=== PATIENT | male | born 1990 | race American Indian/Alaskan Native ===

== ENCOUNTER 2019-12-29 00:48 | Emergency (ER) | payer OTHER, SELFPAY ==
--- NOTE | 2019-12-29 | ECG_ITS ---
Test Reason : CHEST PAIN Blood Pressure : / mmHG Vent. Rate : 055 BPM Atrial Rate : 055 BPM P-R Int : 156 ms QRS Dur : 086 ms QT Int : 406 ms P-R-T Axes : 023 -07 -04 degrees QTc Int : 388 ms Sinus bradycardia Minimal voltage criteria for LVH, may be normal variant ST elevation, consider early repolarization, pericarditis, or injury Abnormal ECG When compared with ECG of 28-OCT-2017 10:33, No significant change was found Referred By: Lolita Pena Electronically Signed By:SIVA COLES MD
[2019-12-29 01:02] VITALS: BP 136/79; PULSE 60; RESP 16; TEMP 36.4; O2SAT 99
[2019-12-29 01:13] VITALS: BP 136/79; PULSE 60; RESP 16; TEMP 36.4; O2SAT 99; BMI 37.3
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
[2019-12-29 01:51] VITALS: BP 111/77; PULSE 72; RESP 16; O2SAT 98
[2019-12-29 02:02] LABS: Basophils Absolute Auto 0.1 X10*3/uL (0.0-0.2); Basophils Percent Auto 0.5 % (0-2); Eosinophils Absolute Auto 0.1 X10*3/uL (0.0-0.4); Eosinophils Percent Auto 1.2 % (0-4); Hematocrit 44.3 % (42-52); Hemoglobin 14.4 g/dl (14.0-18.0); Imm Gran Abs Auto 0.02 X10*3/uL (0.00-0.03); Imm Gran Pct Auto 0.2 % (0.0-0.4); Lymphocytes Absolute Auto 2.7 X10*3/uL (1.2-4.9); Lymphocytes Percent Auto 26.9 % (20-40); MANUAL DIFF FLAG NO; Mean Corpuscular HGB Conc 32.5 g/dl (31.0-36.0); Mean Corpuscular Hemoglobin 27.3 pg (27.0-33.0); Mean Corpuscular Volume 83.9 fL (80-98); Mean Platelet Volume 9.1 fL (9.4-12.4); Monocytes Absolute Auto 0.9 X10*3/uL (0.1-1.2); Monocytes Percent Auto 8.8 % (2-11); Neutrophils Absolute Auto 6.3 X10*3/uL (2.0-8.3); Neutrophils Percent Auto 62.4 % (45-73); Platelet Count 309 X10*3/uL (160-400); Red Blood Count 5.28 X10*6/uL (4.60-5.80); Red Cell Distribution Width 13.2 % (11.0-16.0); White Blood Count 10.1 X10*3/uL (4.8-10.8)
[2019-12-29 02:24] LABS: Alanine Aminotransferase 17 U/L (0-40); Albumin Level 4.5 g/dL (3.5-5.0); Alkaline Phosphatase 53 U/L (39-117); Anion Gap 12 (12-20); Aspartate Amino Transferase 16 U/L (5-37); Bilirubin Total 0.4 mg/dL (0.0-1.0); Blood Urea Nitrogen 20 mg/dL (9-16); Calcium 9.3 mg/dL (8.4-10.2); Carbon Dioxide 27 mmol/L (22-29); Chloride 104 mmol/L (96-108); Creatinine Clr Calc Pharmacy 138.9; Estimated Glomerular Filt Rate > 60; Glucose Random 98 mg/dL (60-115); Potassium 4.4 mmol/l (3.3-5.1); Sodium 139 mmol/L (135-145); Total Protein 7.3 g/dL (6.5-8.0)
[2019-12-29] MEDS: iohexoL 350 MG/ML 100 ML INFUS..BTL 85 ML IV (02:25)
[2019-12-29] MEDS: Ketorolac Tromethamine 15 MG/ML VIAL IV (03:00)
[2019-12-29] MEDS: Acetaminophen 325 MG TABLET 975 MG PO (03:00)
[2019-12-29] MEDS: 0.9 % Sodium Chloride 1,000 ML 999 ML IVCONT (03:00)
[2019-12-29 03:28] LABS: Troponin-I High Sensitivity < 3.5 ng/L (<3.5-35.0)
== END 2019-12-29 04:08 | disposition home or self-care (01) ==
PROVIDERS: Emergency Provider Student in an Organized Health Care Education/Training Program; PCP Internal Medicine
DX: S29.8XXA Other specified injuries of thorax, initial encounter (principal); V43.52XA Car driver injured in collision with other type car in traffic accident, initial encounter; Y93.89 Activity, other specified; Y92.414 Local residential or business street as the place of occurrence of the external cause; Y99.9 Unspecified external cause status
CPT/HCPCS: 36415; 71260; 74177; 80053; 84484; 85025; 90471; 90715; 93005; 96361; 96374; 99284; J1885

== ENCOUNTER 2020-03-30 21:20 | Emergency (ER) | payer OTHER, SELFPAY ==
[2020-03-30 21:44] VITALS: BP 112/71; PULSE 84; RESP 18; TEMP 37; O2SAT 97; BMI 38.0
--- NOTE | 2020-03-30 23:24 | ED.MALEGU ---
HPI - Male Genitourinary General Chief complaint: Urogenital-Male Stated complaint: Personal Time Seen by Provider: 03/30/20 22:59 Source: patient Mode of arrival: ambulatory Limitations: no limitations History of Present Illness HPI Narrative: 29-year-old male who presents to the emergency department for evaluation of painful erections. The patient states that over the past week he has been getting spontaneous painful erections. He states that he gets them every other day. He gets to 3 erections per day. Erections the last 3 hours and then resolved. He states that the pain is constant when he has the erection, is a throbbing sensation and is 6/10 and resolves when his erection resolves. The patient states that he started a new exercise routine and is taking a packet of supplements that are given to him by a friend. He does not know the medications that were in the supplements. He denied being ill in any other way. He denied fever, chills, chest pain, shortness of breath, abdominal pain, nausea, vomiting, diarrhea, frequency, urgency, dysuria or penile discharge. Related Data Allergies Allergy/AdvReac Type Severity Reaction Status Date / Time morphine [Morphine] Allergy Unknown PALPITATION, Verified 03/06/20 13:20 tachycardia, tachycardia Review of Systems Review of Systems: Yes all other systems are reviewed and are negative Neurologic: Reports Abnormal speech present [facility] Past Medical History Medical History Asthma History of gastrectomy Surgical History History of sleeve gastrectomy History of tonsillectomy Hx laparoscopic cholecystectomy Family History Family History Father Hypertension High cholesterol Mother Rheumatoid arthritis Maternal Grandmother Breast cancer Paternal Grandmother Breast cancer Pancreatic cancer Paternal Grandfather Colon cancer Social History Social History Alcohol intake: current Alcohol intake frequency: holidays/special occasions only Smoked in Last 30 Days: No Use of substances other than those prescribed or required for medical reasons: No Advance Directives: No Physical Exam Vital Signs: Vital Signs: Last Vital Signs Temp 98.6 F 03/30/20 21:44 Pulse 84 03/30/20 21:44 Resp 18 03/30/20 21:44 BP 112/71 03/30/20 21:44 Pulse Ox 97 03/30/20 21:44 Body Mass Index 38.0 Const: General: cooperative and healthy appearing Nutritional Appearance: obese Orientation/consciousness: oriented to person and oriented to place Limitations: no limitations HENMT: Head: Yes normal to inspection, Yes normocephalic and Yes atraumatic Ears: external ears normal General nose exam: Normal external nose present Face and sinus: Yes normal facial exam Mouth: Normal oral and palatal mucosa present Throat: Yes posterior oropharynx normal Eyes: Periorbital: periorbital findings normal Eyelids: Yes eyelids normal Conjunctivae: conjunctivae normal Sclerae: sclerae normal Corneas: corneas normal Pupils: Equal, round and reactive pupils present Direct Ophthalmoscopy: normal light reflex Neck: Neck: Yes full ROM, Yes no lymphadenopathy, Yes no meningeal signs, Yes trachea midline and Yes supple Chest: Chest palpation & inspection: normal inspection of the chest and normal palpation of entire chest wall Resp: Effort & Inspection: normal respiratory effort and able to speak in complete sentences Auscultation: clear to auscultation bilaterally Cardio: Rate: regular rate Rhythm: regular rhythm Heart sounds: S1 normal heart sound present, S2 normal heart sound present and no murmurs GI: Inspection: Yes normal to inspection Palpation (GI): Soft to palpation, nontender, no guarding, not rigid and No hepatosplenomegaly present : General: Yes no CVA tenderness Male General Exam: Yes normal external exam and No Genital lesions present Penis: normal penis, uncircumcised, no ecchymosis, not edematous, not erythematous, no masses, no vesicles, no swelling, no ulcerations and No Genital lesions present Back/Spine/Pelvis: Back: no CVA tenderness Cervical Spine: normal cervical lordosis Thoracic/Lumbar Spine: thoracic and lumbar spine normal to inspection Skin: Lesions: no lesions Rashes: no rashes Wounds: no wounds Neuro: General: oriented to person, oriented to place and no meningeal signs Cranial nerves: Yes Equal, round and reactive pupils present Cognition (Neuro): normal cognition Speech: Abnormal speech present Motor exam (neuro): 5/5 motor strength present throughout Extrem: General: Yes normal to inspection and Yes full ROM Psych: Appearance: well kempt Mental Status: mental status grossly normal Speech and movement: Normal speech and movement present Affect: normal affect Attitude: cooperative Thought process: Normal thought process present Thought content: Normal thought content present Course Course Course Narrative: The patient's presentation is consistent with priapism most likely caused by his workout supplements that he has been taking over the past 2 weeks. I did discuss this with him. He was advised to stop taking supplements. I told him that if his painful erections persist then he should follow-up with urology. He told me should return if he has a painful erection that lasts more than 4 hours and does not resolve. Discharge Plan Discharge Clinical Impression: Priapism Patient Disposition: Home, Self-Care Instructions: Priapism (ED) Additional Instructions: The painful erections are most likely caused by the workout supplements that you are taking. Stop these medications. He have an erection that lasts more than 4 hours and does not resolve the return to the emergency department for evaluation. Follow-up with our urologist on-call within 1 weeks if your symptoms persist after stopping the supplements. Please return to the emergency department if your symptoms get worse or if you develop any symptoms that are concerning to you. Referrals: José Bahena MD [Physician] - 2 days
== END 2020-03-31 00:18 | disposition home or self-care (01) ==
PROVIDERS: Emergency Provider Emergency Medicine Emergency Medical Services; PCP Internal Medicine
DX: N48.30 Priapism, unspecified (principal)
CPT/HCPCS: 99283; 99284

== ENCOUNTER 2020-04-06 09:30 | Outpatient (REF) | payer OTHER, SELFPAY ==
--- NOTE | 2020-04-06 09:35 | XR_ITS ---
EXAMINATION: XR LUMBOSACRAL SPINE CLINICAL INFORMATION: Low back pain. COMPARISON: None TECHNIQUE: Three views of the lumbosacral spine. FINDINGS: There is mild straightening of lumbar lordosis. There is loss of L5/S1 disc space. Rest the disc heights are normal. The vertebral heights and alignment is preserved.. No visible acute fracture, dislocation or subluxation seen. No lytic or sclerotic process seen. The paravertebral soft tissues are normal. XR/XR lumbar spine 2-3V IMPRESSION: Mild straightening of lumbar lordosis likely spasm. Mild loss of L5-S1 disc height.
== END 2020-04-06 09:31 | disposition home or self-care (01) ==
LOC: HO.XRAY 09:30
PROVIDERS: PCP Internal Medicine; Visit Provider Internal Medicine
DX: M54.5 Low back pain (principal)
CPT/HCPCS: 72100

== ENCOUNTER 2020-07-03 17:21 | Emergency (ER) | payer OTHER, SELFPAY ==
--- NOTE | ~2020-07-03 | XR_ITS ---
EXAMINATION: XR CHEST CLINICAL INFORMATION: Chest pain COMPARISON: Chest CT 12/29/2019 TECHNIQUE: Frontal view of the chest was obtained. FINDINGS: Cardiac silhouette is normal in size. The lungs are well aerated. There is no lobar consolidation. No pleural effusion or pneumothorax. XR/XR chest 1V IMPRESSION: No acute pulmonary pathology.
--- NOTE | 2020-07-03 17:52 | ECG_ITS ---
Test Reason : CHEST PAIN Blood Pressure : / mmHG Vent. Rate : 061 BPM Atrial Rate : 061 BPM P-R Int : 146 ms QRS Dur : 082 ms QT Int : 396 ms P-R-T Axes : 020 -05 009 degrees QTc Int : 398 ms Normal sinus rhythm Normal ECG When compared with ECG of 29-DEC-2019 03:03, No significant change was found Referred By: Wilber Villanueva Electronically Signed By:ROM BOBO
[2020-07-03 17:53] VITALS: BP 116/79; PULSE 66; RESP 18; TEMP 36.5; O2SAT 99; BMI 37.2
[2020-07-03 18:22] LABS: MANUAL DIFF FLAG NO
[2020-07-03 18:25] LABS: Basophils Percent Auto 0.4 % (0-2); Eosinophils Absolute Auto 0.2 X10*3/uL (0.0-0.4); Eosinophils Percent Auto 1.7 % (0-4); Hematocrit 44.8 % (42-52); Hemoglobin 14.7 g/dl (14.0-18.0); Imm Gran Abs Auto 0.04 X10*3/uL (0.00-0.03); Imm Gran Pct Auto 0.4 % (0.0-0.4); Lymphocytes Absolute Auto 2.3 X10*3/uL (1.2-4.9); Lymphocytes Percent Auto 24.8 % (20-40); Mean Corpuscular HGB Conc 32.8 g/dl (31.0-36.0); Mean Corpuscular Hemoglobin 27.2 pg (27.0-33.0); Mean Platelet Volume 9.1 fL (9.4-12.4); Monocytes Absolute Auto 0.8 X10*3/uL (0.1-1.2); Monocytes Percent Auto 8.8 % (2-11); Neutrophils Absolute Auto 5.8 X10*3/uL (2.0-8.3); Neutrophils Percent Auto 63.9 % (45-73); Platelet Count 280 X10*3/uL (160-400); Red Cell Distribution Width 13.2 % (11.0-16.0); White Blood Count 9.1 X10*3/uL (4.8-10.8)
[2020-07-03 18:47] LABS: Anion Gap 12 (12-20); Blood Urea Nitrogen 18 mg/dL (9-16); Calcium 8.8 mg/dL (8.4-10.2); Carbon Dioxide 30 mmol/L (22-29); Chloride 103 mmol/L (96-108); Creatinine Clr Calc Pharmacy 170.2; Estimated Glomerular Filt Rate > 60; Glucose Random 89 mg/dL (60-115); Potassium 4.2 mmol/L (3.3-5.1); Sodium 141 mmol/L (135-145)
[2020-07-03 18:54] LABS: Troponin-I High Sensitivity < 3.5 ng/L (<3.5-35.0)
--- NOTE | 2020-07-03 22:20 | PC.NURSE ---
CALLED BY PCT FOR ADDITIONAL LAB DRAW NO RESPONSE
== END 2020-07-03 22:24 | disposition left against medical advice (07) ==
PROVIDERS: Emergency Provider Emergency Medicine; PCP Internal Medicine
DX: R07.9 Chest pain, unspecified (principal); F41.9 Anxiety disorder, unspecified; J45.909 Unspecified asthma, uncomplicated; K76.0 Fatty (change of) liver, not elsewhere classified
CPT/HCPCS: 36415; 71045; 80048; 84484; 85025; 93005; 99282; 99283

== ENCOUNTER 2020-11-03 20:20 | Emergency (ER) | payer OTHER, SELFPAY ==
--- NOTE | ~2020-11-03 | XR_ITS ---
EXAMINATION: XR FOOT, RIGHT CLINICAL INFORMATION: Heel splinter. COMPARISON: None TECHNIQUE: AP, lateral, and oblique views of the right foot. FINDINGS: No radiopaque foreign body. No acute fracture or dislocation. No joint space narrowing or marginal osteophytes. No osseous erosion. Plantar and dorsal calcaneal enthesophytes. XR/XR foot RT min 3V IMPRESSION: 1. No radiopaque foreign body. 2. Small plantar and dorsal calcaneal spurs.
[2020-11-03 21:09] VITALS: BP 118/61; PULSE 70; RESP 16; TEMP 36.9; O2SAT 96; BMI 39.1
--- NOTE | 2020-11-03 23:01 | ED_ITS ---
HPI - Skin/Abscess/Foreign Bdy General Chief complaint: Skin/Abscess/Foreign Body Stated complaint: Splinter in foot Time Seen by Provider: 11/03/20 22:34 Source: patient Mode of arrival: ambulatory Limitations: no limitations History of Present Illness HPI narrative: Wooden splinter in the right heel from that at home. States tried to remove it but kept breaking off. Unsure of last tetanus vaccination. Onset (ago): hour(s) Tetanus up to date: no Location: R foot Severity: mild Quality: aching (Every time he steps on it feels like) Relieving factors: none Exacerbating factors: palpation and other (Weight-bearing) Context: other (Wooden splinter) Associated symptoms: denies other symptoms Treatments prior to arrival: none Related Data Home Medications Medication Instructions Recorded Confirmed ibuprofen 600 mg tablet 600 mg PO TID PRN 04/05/20 11/01/20 Previous Rx's Medication Instructions Recorded cyclobenzaprine 7.5 mg tablet 7.5 mg PO TID PRN #20 tab 04/05/20 albuterol sulfate 90 mcg/actuation 2 puff INHALATION Q4-6H PRN #8.5 g 11/01/20 aerosol inhaler (ProAir HFA) budesonide-formoterol HFA 80 2 puff INHALATION BID #10.2 g 11/01/20 mcg-4.5 mcg/actuation aerosol inhaler (Symbicort) amoxicillin 875 mg-potassium 1 tab PO Q12H 7 Days #14 tab 11/03/20 clavulanate 125 mg tablet (Augmentin) Allergies Allergy/AdvReac Type Severity Reaction Status Date / Time morphine [Morphine] Allergy Unknown PALPITATION, Verified 11/03/20 21:11 tachycardia, tachycardia Review of Systems Review of Systems: Constitutional: No Weight loss, No Fever, No Chills, No Night Sweats, No Fatigue, No Malaise ENT/Mouth: No Hearing loss, No Ear Pain, No Nasal Congestion, No Sinus Pain, No Hoarseness, No sore throat, No Rhinorrhea, No Swallowing Difficulty Eyes: No Eye Pain, No Swelling, No Redness, No Foreign Body, No Discharge, No Vision Changes Cardiovascular: No Chest Pain, No SOB, No Dyspnea on Exertion, No Orthopnea, No Edema, No Palpitations Respiratory: No Cough, No Sputum, No Wheezing, No Dyspnea Gastrointestinal: No Nausea, No Vomiting, No Diarrhea, No Constipation, No abdominal Pain, No Hematochezia, No Melena Genitourinary: no irregular bleeding, No Dysuria, No Urinary Frequency, No Hematuria, No Urinary Incontinence, No Urgency, No Flank Pain, No Urinary Flow Changes, No Hesitancy Musculoskeletal: No joint pain, No Myalgias, No Joint Swelling as noted per HPI Skin: No Skin Lesions, No rash Neuro: No Weakness, No Numbness, No Paresthesias, No Loss of Consciousness, No Dizziness, No Headache Psych: No Social Issues Heme/Lymph: No Bruising, No Bleeding,No Lymphadenopathy Endocrine: No Polyuria, No Polydipsia, No Temperature Intolerance Yes all other systems are reviewed and are negative [facility] Past Medical History Medical History Anxiety and depression Asthma Decreased hearing of left ear Fatty liver GERD (gastroesophageal reflux disease) History of gastrectomy Hypertriglyceridemia Obesity Obstructive sleep apnea Surgical History History of sleeve gastrectomy History of tonsillectomy Hx laparoscopic cholecystectomy Family History Family History Father Hypertension High cholesterol Mother Rheumatoid arthritis Maternal Grandmother Breast cancer Paternal Grandmother Breast cancer Pancreatic cancer Paternal Grandfather Colon cancer Son Mental health disorder Social History Social History Housing: House (rented) Alcohol intake: current Alcohol intake frequency: holidays/special occasions only Patient Tobacco Use Status: Never used Tobacco Advance Directives: No Advance Directives Information Provided: Yes service: No Current occupational status: employed Physical Exam Vital Signs: Vital Signs: Last Vital Signs Temp 98.4 F 11/03/20 21:09 Pulse 70 11/03/20 21:09 Resp 16 11/03/20 21:09 BP 118/61 11/03/20 21:09 Pulse Ox 96 11/03/20 21:09 Body Mass Index 39.1 Const: General: cooperative and healthy appearing; No acute distress or intoxicated appearing Nutritional Appearance: average body habitus Orientation/consciousness: patient oriented x3 HENMT: Head: Yes normal to inspection Ears: hearing grossly normal bilaterally Chest: Chest palpation & inspection: normal inspection of the chest Resp: Effort & Inspection: normal respiratory effort : General: Yes no CVA tenderness Back/Spine/Pelvis: Back: no CVA tenderness Skin: General skin exam: no rashes or lesions noted Neuro: General: patient oriented x3 Extrem: General: Yes normal to inspection Ankle/foot/toe images: 1. There is a obvious < 0.5 cm elvis of PW with central aspect that has a dark foreign body consistent with wooden splinter. There is no swelling, erythema, discharge. Course Reevaluation(s) Reevaluation #1: Foreign body removed with ease with forceps, given tetanus vaccination, empiric antibiotics. Triage ordered x-ray protocol this was negative for foreign body however I was able to see on exam and removed with ease. Procedures Procedure Narrative Procedure Narrative: Right heel was cleaned with alcohol prep and with a splinter was visualized and fine forceps used to have 2 of the wooden splinter removed fully intact. Moist procedure palpated area does not feel like he has any foreign body sensation in more. No visible foreign body. Able to ambulate without pain. Discharge Plan Discharge Clinical Impression: Foreign body (FB) in soft tissue, Vaccine for tetanus toxoid Patient Disposition: Home, Self-Care Instructions: Soft Tissue Foreign Body (ED) Additional Instructions: You were given a tetanus vaccine Keep site clean and dry Monitor for signs of infection Prophylactic antibiotics Return if any concerns or worsening symptoms Thank you Prescriptions: New amoxicillin-pot clavulanate [Augmentin] 875-125 mg tablet 1 tab PO Q12H 7 Days Qty: 14 RF: 0 No Action albuterol sulfate [ProAir HFA] 90 mcg/actuation HFA aerosol inhaler 2 puff inhalation Q4-6H PRN (Reason: shortness of breath or wheezing) Qty: 8.5 RF: 0 budesonide-formoterol [Symbicort] 80-4.5 mcg/actuation HFA aerosol inhaler 2 puff inhalation BID Qty: 10.2 RF: 0 ibuprofen 600 mg tablet 600 mg PO TID PRNRF: 0 cyclobenzaprine 7.5 mg tablet 7.5 mg PO TID PRN (Reason: muscle spasm) Qty: 20 RF: 0
[2020-11-03] MEDS: Diphth,Pertus(ACell),Tet Adult 0.5 ML SYRINGE IM (23:03)
[2020-11-03] MEDS: Amoxicillin/Potassium Clav 875 MG TABLET PO (23:04)
== END 2020-11-03 23:27 | disposition home or self-care (01) ==
PROVIDERS: Emergency Provider Emergency Medicine; PCP Internal Medicine
DX: S91.341A Puncture wound with foreign body, right foot, initial encounter (principal); W45.8XXA Other foreign body or object entering through skin, initial encounter; Y93.9 Activity, unspecified; Y92.019 Unspecified place in single-family (private) house as the place of occurrence of the external cause; Y99.9 Unspecified external cause status
CPT/HCPCS: 73630; 90471; 90715; 99283; 99284

== ENCOUNTER 2021-05-25 07:34 | Outpatient (REF) | payer OTHER, SELFPAY ==
--- NOTE | ~2021-05-25 | XR_ITS ---
EXAMINATION: XR FINGER, LEFT CLINICAL INFORMATION: Pain in left finger COMPARISON: None TECHNIQUE: Three views of the left index finger. FINDINGS: The bones and soft tissues are normal. No fracture. Alignment is anatomic. Joint spaces are maintained. XR/XR finger LT min 2V IMPRESSION: Normal finger radiographs.
[2021-05-25 07:50] LABS: MANUAL DIFF FLAG NO
[2021-05-25 08:14] LABS: Basophils Percent Auto 0.5 % (0-2); Eosinophils Absolute Auto 0.1 X10*3/uL (0.0-0.4); Hemoglobin 14.4 g/dl (14.0-18.0); Imm Gran Abs Auto 0.02 X10*3/uL (0.00-0.03); Imm Gran Pct Auto 0.3 % (0.0-0.4); Lymphocytes Absolute Auto 1.9 X10*3/uL (1.2-4.9); Lymphocytes Percent Auto 28.8 % (20-40); Mean Corpuscular HGB Conc 31.3 g/dl (31.0-36.0); Mean Corpuscular Hemoglobin 26.3 pg (27.0-33.0); Mean Corpuscular Volume 84.1 fL (80.0-98.0); Mean Platelet Volume 9.1 fL (9.4-12.4); Monocytes Absolute Auto 0.6 X10*3/uL (0.1-1.2); Monocytes Percent Auto 9.2 % (2-11); Neutrophils Absolute Auto 3.8 x10*3/uL (2.0-8.3); Neutrophils Percent Auto 59.2 % (45-73); Platelet Count 309 X10*3/uL (160-400); Red Blood Count 5.47 X10*6/uL (4.60-5.80); Red Cell Distribution Width 13.2 % (11.0-16.0); White Blood Count 6.4 X10*3/uL (4.8-10.8)
[2021-05-25 08:37] LABS: Alanine Aminotransferase 35 U/L (0-40); Alkaline Phosphatase 51 U/L (39-117); Anion Gap 11 (12-20); Aspartate Amino Transferase 24 U/L (5-37); Bilirubin Total 0.6 mg/dL (0.0-1.0); Blood Urea Nitrogen 13 mg/dL (9-16); Calcium 9.6 mg/dL (8.4-10.2); Carbon Dioxide 29 mmol/L (22-29); Chloride 105 mmol/L (96-108); Cholesterol 133 mg/dL; Estimated Glomerular Filt Rate > 60; Glucose Random 89 mg/dL (60-115); HDL Cholesterol 29 mg/dL; LDL Cholesterol Calculated 82 mg/dl; Potassium 4.4 mmol/L (3.3-5.1); Sodium 141 mmol/L (135-145); Total Protein 6.9 g/dL (6.5-8.0); Triglycerides 112 mg/dL
[2021-05-25 08:59] LABS: Insulin 21 uU/mL (2-29); Thyroid Stimulating Hormone 1.65 uIU/mL (0.32-4.0)
[2021-05-27 09:00] LABS: Folate 5.1 ng/mL (> or = 4.0); Vitamin B12 356 pg/mL (200-900)
[2021-05-27 14:32] LABS: C Peptide 2.24 ng/mL (0.80-3.85)
[2021-05-29 02:27] LABS: Beta-Hydroxybutyrate 0.05 mmol/L
[2021-06-01 04:02] LABS: Proinsulin 10.9 pmol/L (< OR = 18.8)
[2021-06-04 11:51] LABS: Chlorpropamide None Detected; Glimepiride None Detected; Glipizide None Detected; Glyburide None Detected; Nateglinide None Detected; Pioglitazone None Detected; Repaglinide None Detected; Rosiglitazone None Detected; Tolazamide None Detected; Tolbutamide None Detected
== END 2021-05-25 07:35 | disposition home or self-care (01) ==
LOC: HO.XRAY 07:34
PROVIDERS: PCP Internal Medicine; Visit Provider Internal Medicine
DX: E16.2 Hypoglycemia, unspecified (principal); E78.00 Pure hypercholesterolemia, unspecified; M79.645 Pain in left finger(s)
CPT/HCPCS: 36415; 73140; 80053; 80061; 80337; 82010; 82607; 82746; 83525; 84206; 84439; 84443; 84681; 85025

== ENCOUNTER 2022-12-26 09:57 | Outpatient (AMB) | payer OTHER, SELFPAY ==
--- NOTE | 2022-12-26 10:04 | MHC.PC.OV ---
Vital Signs 12/26/22 10:05 Height 5 ft 7 in Weight 303 lb 8 oz BMI 47.5 BP 122/80 Blood Pressure Location Lt brachial Position Sitting Pulse 63 Pulse Source Pulse Oximeter Pulse Oximetry (%) 97 Oxygen Delivery Method Room Air Intake Visit Reasons: PHY Intake Note: Patient is here today for a physical. Request for lab order to check everything. Complain of sharp pain in the stomach. Rash on upper tight and lower abdominal folds. Complaint of chest pain with left arm weakness and welling. Him Specialist Required: No Director Of Outreach: Not Required per policy Accompanied by: Self / Same As Patient Allergies morphine [Morphine] Allergy (Unknown, Verified 12/26/22 10:21) PALPITATION, tachycardia, tachycardia Medication List - Last Reconciled 12/26/22 by DILLAN Martins albuterol sulfate 90 mcg/actuation (ProAir HFA) 2 puffs inhalation Q4-6H PRN budesonide-formoterol 80-4.5 mcg/actuation (Symbicort) 2 puffs inhalation BID cyclobenzaprine 7.5 mg PO TID PRN ibuprofen 600 mg PO TID PRN omeprazole 20 mg PO DAILY Tobacco use date assessed: 12/26/22 Dental Screening Dental Screen Date: 12/26/22 Did you have a dental visit in the last 12 months?: No Did you have a dental problem in the last 6 months where you did not have access to dental care?: No Was dental information given to patient?: No HPI HPI Comments History of Present Illness Details 31-year-old morbidly obese male with a history of asthma, GERD, obstructive sleep apnea, generalized anxiety disorder, hypercholesterolemia, 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 Patient of Dr. Hickman last seen in August 2021, presents today for physical exam. Patient reports this pas weekend, chest pain substernal discomfort and progressed to sharp ain and radtiated down left arm, 12/30, PAtient reports didnt got ER caudse he had his kids. Denies nausea,diaphoresis. Patient reports that arm feels like asleep and fuzzy feeling in finger tips. Patient reports the chest pain occurred while he was sitting on his couch watching a movie with his son. Will obtain EKG to further evaluate. Patient requesting cardiology referral as his dad has a history of WPW and he was told he should be evaluated by a contract driver. Referral entered. Patient also reports fungal rash to abdominal folds and left like fold will send nystatin powder for this. 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 Patient concerned for umbilical hernia. Eye exam: 1 year ago, goes every 2 years. Up-to-date on Tdap, Flu shot recommended office today, declined. [facility] Medical History Decreased hearing of left ear Obesity Fatty liver Hypertriglyceridemia GERD (gastroesophageal reflux disease) Obstructive sleep apnea History of gastrectomy Asthma Surgical History History of tonsillectomy History of sleeve gastrectomy Hx laparoscopic cholecystectomy Family History Father Hypertension High cholesterol Mother Rheumatoid arthritis Maternal Grandmother Breast cancer Paternal Grandmother Breast cancer Pancreatic cancer Paternal Grandfather Colon cancer Son Mental health disorder Social History (Updated 12/26/22 @ 10:22 by DILLAN Martins) Housing: House Alcohol intake: current Alcohol intake frequency: holidays/special occasions only Patient Tobacco Use Status: Never used Tobacco e-Cigarette/Vaping Use: Never Used Second Hand Smoke Exposure: No service: No Current occupational status: employed Cognitive needs: No Hearing needs: No Vision needs: Yes (glasses) Questionnaire PHQ-9 Over the last 2 weeks, how often have you been bothered by any of the following problems? 1. Little interest or pleasure in doing things: not at all 2. Feeling down, depressed, or hopeless: not at all 3. Trouble falling or staying asleep, or sleeping too much: not at all 4. Feeling tired or having little energy: not at all 5. Poor appetite or overeating: not at all 6. Feeling bad about yourself - or that you are a failure or have let yourself or your family down: not at all 7. Trouble concentrating on things, such as reading the newspaper or watching television: not at all 8. Moving or speaking so slowly that other people could have noticed. Or the opposite - being so fidgety or restless that you have been moving around a lot more than usual: not at all 9. Thoughts that you would be better off or of hurting yourself in some way: not at all Total score: 0 Depression Screening Interpretation: Negative Depression Screening Done: Yes 10078 - PHQ-9 Billing: Yes Source: Developed by Drs. Louie Giles, Ruthann Hollingsworth, Freddie Jasso and colleagues, with an educational reinier from [employer]. Thrive Questionnaire Date Thrive assessed: 12/26/22 I am a: Patient What is your living situation today?: I have a steady place to live Within the past 12 months, did the food you bought not last and you didn't have the money to get more?: Never true Within the past 12 months, did you worry whether your food would run out before you got money to buy more?: Never true Do you have trouble paying for medicines?: No Do you have trouble getting transportation to medical appointments?: No Do you have trouble paying your heating and electricity bill?: No Do you have trouble taking care of your child, family member or friend?: No Do you have trouble with day-to-day activities such as bathing, preparing meals, shopping, managing finances, etc.?: No Are you currently unemployed and looking for a job?: No Are you interested in more education?: No Currently or been in a relationship where the following occur: no concerns reported AUDIT C Alcohol Use Questionnaire (AUDIT-C) 1. How often do you have a drink containing alcohol?: Monthly or less 2. How many drinks containing alcohol do you have on a typical day when you are drinking?: 1 or 2 Total Score: 1 JERROD-7 AMB Questionnaire JERROD-7 Date JERROD - 7 assessed: 12/26/22 Feeling nervous, anxious, or on edge: 0 = Not at all Not being able to stop or control worryin = Not at all Worrying too much about different things: 0 = Not at all Trouble relaxin = Not at all Being so restless that it is hard to sit still: 0 = Not at all Becoming easily annoyed or irritable: 0 = Not at all Feeling afraid as if something awful might happen: 0 = Not at all Total JERROD-7 score (0-4 normal; 5-9 mild; 10-14 moderate; 15-21 severe): 0 Source: Developed by Drs. Louie Giles, Ruthann Hollingsworth, Freddie Jasso and colleagues, with an educational reinier from [employer]. JERROD-7 Assessment Billing JERROD-7 Assessment Tool: JERROD-7 Assessment 87230 Review of Systems Const Denies chills, Denies fatigue, Denies fever(s) and Denies poor appetite Eyes Denies no additional complaints ENT Reports Normal hearing present Card Denies chest pain, Denies syncope, Denies rapid heart rate and Denies dyspnea Resp Denies cough and Denies dyspnea GI Denies change in stool character, Denies constipation, Denies diarrhea, Denies nausea and Denies vomiting Denies dysuria, Denies urinary frequency and Denies urinary urgency Neuro Reports Normal hearing present, Denies confusion and Denies syncope Psych Denies confusion Endo Denies fatigue Physical exam (Primary Care) Vital Signs: Last Vital Signs Pulse 63 12/26/22 10:05 BP 122/80 12/26/22 10:05 Pulse Ox 97 12/26/22 10:05 Oxygen Delivery Method Room Air 12/26/22 10:05 BMI result Body Mass Index 47.5 Tobacco/Smoking Status: Tobacco use Status Tobacco use date assessed 12/26/22 12/26/22 10:13 Patient Tobacco Use Status Never used Tobacco 12/26/22 10:22 e-Cigarette/Vaping Use Never Used 12/26/22 10:22 PHQ-9: PHQ-9 Score PHQ-9: Total score 0 12/26/22 10:28 Depression Screening Interpretation: Negative Thrive Assessment: Date of Thrive Assessment Date Thrive assessed 12/26/22 12/26/22 10:13 Currently or been in a relationship where the following occur: no concerns reported Const General: No confusion Orientation/consciousness: No confusion HENMT Head: Yes normocephalic and Yes atraumatic Ears: external ears normal and TM's normal bilaterally General nose exam: Normal external nose present and Normal nasal mucous membranes and turbinates present Face and sinus: Yes normal facial exam and Yes sinuses nontender Mouth: moist mucous membranes Throat: Yes tonsils normal Eyes Conjunctivae: conjunctivae normal Sclerae: sclerae normal Pupils: Equal, round and reactive pupils present and Pupils normal by confrontation EOM: EOMs intact bilaterally Direct Ophthalmoscopy: normal light reflex Neck Neck: Yes no lymphadenopathy and Yes supple Thyroid: Thyroid normal Chest Chest palpation & inspection: normal inspection of the chest Resp Effort & Inspection: normal respiratory effort Auscultation: clear to auscultation bilaterally, no crackles, no rhonchi and no wheezes Cardio Rate: regular rate Rhythm: regular rhythm Peripheral pulses: radial pulses present and dorsalis pedis present GI Inspection: Yes normal to inspection Palpation (GI): Soft to palpation, nontender, No hepatosplenomegaly present and Hernia present umbilical Auscultation: normoactive bowel sounds Skin General skin exam: no rashes or lesions noted Neuro General: No confusion Cranial nerves: Yes Equal, round and reactive pupils present and Yes Normal hearing present Cognition (Neuro): normal cognition Gait exam (Neuro): Normal gait present Motor exam (neuro): 5/5 motor strength present throughout Deep tendon reflexes (DTR's): Right brachioradialis reflex intensity grade: 2+, Left brachioradialis reflex intensity grade: 2+, Right patellar reflex intensity grade: 2+ and Left patellar reflex intensity grade: 2+ Extrem General: No edema Assessment and Plan Assessment & Plan (1) Hypercholesterolemia: Code(s): E78.00 - Pure hypercholesterolemia, unspecified Plan: Fasting lipid panel ordered. (2) Obstructive sleep apnea: Comment: Moderate obstructive sleep apnea 2016 post surgery resolved but advised to monitor Code(s): G47.33 - Obstructive sleep apnea (adult) (pediatric) Plan: Resolved status post surgery. Patient denies any periods of apnea or snoring at night. (3) GERD (gastroesophageal reflux disease): Code(s): K21.9 - Gastro-esophageal reflux disease without esophagitis Plan: Continue on omeprazole 20 mg daily. Avoid the foods that cause that, usually spicy foods, tomato products, juices, coffee, soda and foods that you're sensitive to.? After eating do not lie down, allow 3-4 hours before lying down. And keep the head of the bed above 30 degrees to avoid the acid from going up. (4) Physical exam, annual: Code(s): Z00.00 - Encounter for general adult medical examination without abnormal findings Plan: Follow-up in 1 year for physical exam. (5) Family history of Lhpsp-Qbugjlbaz-Hcoem (WPW) syndrome: Code(s): Z82.49 - Family history of ischemic heart disease and other diseases of the circulatory system Plan: Referral entered to Cardiology. (6) Chest pain at rest: Code(s): R07.9 - Chest pain, unspecified Plan: EKG ordered to further evaluate and referral inter to Cardiology. (7) Umbilical hernia: Code(s): K42.9 - Umbilical hernia without obstruction or gangrene Plan: Abdominal CT ordered to further evaluate. (8) Fungal rash of trunk: Code(s): B36.9 - Superficial mycosis, unspecified Plan: Nystatin powder sent to patient's pharmacy. Plan Follow-up in 1 year for annual physical exam or sooner if needed. Orders: Orders Comprehensive [place]. Panel Fast Today E78.00 - Pure hypercholesterolemia, unspecified Lipid Panel Today E78.00 - Pure hypercholesterolemia, unspecified TSH reflex Free T4 Today F41.1 - Generalized anxiety disorder ECG 12 lead EKG Today R07.9 - Chest pain, unspecified CT abdomen pelvis w IV con Today K42.9 - Umbilical hernia without obstruction or gangrene Referrals Cardiology Referral Z82.49 - Family history of ischemic heart disease and other diseases of the circulatory system Medications: New nystatin 1 appl topical BID 60 grams 0RF B36.9 - Superficial mycosis, unspecified Coding Level of Care Code Est Pt Prev Care 18-39y(95591) Diagnoses Hypercholesterolemia E78.00 Obstructive sleep apnea G47.33 GERD (gastroesophageal reflux disease) K21.9 Physical exam, annual Z00.00 Family history of Srind-Coqenblxy-Etmji (WPW) syndrome Z82.49 Chest pain at rest R07.9 Umbilical hernia K42.9 Fungal rash of trunk B36.9 Additional Codes JERROD-7 Assessment Billing - JERROD-7 Assessment Tool: JERROD-7 Assessment 36737 ([id number])
[2022-12-26 10:05] VITALS: BP 122/80; PULSE 63; O2SAT 97; BMI 47.5
== END 2022-12-26 10:38 | disposition home or self-care (01) ==
PROVIDERS: PCP Internal Medicine; Visit Provider Nurse Practitioner Family
DX: Z00.00 Encounter for general adult medical examination without abnormal findings (principal); J45.909 Unspecified asthma, uncomplicated; E66.01 Morbid (severe) obesity due to excess calories; Z68.42 Body mass index [BMI] 45.0-49.9, adult; G47.33 Obstructive sleep apnea (adult) (pediatric); K21.9 Gastro-esophageal reflux disease without esophagitis; Z82.49 Family history of ischemic heart disease and other diseases of the circulatory system; B36.9 Superficial mycosis, unspecified
CPT/HCPCS: 99395

== ENCOUNTER 2023-01-31 07:37 | Outpatient (REF) | payer OTHER, SELFPAY ==
[2023-01-31 08:56] LABS: Alanine Aminotransferase 17 U/L (0-40); Albumin Level 4.1 g/dL (3.5-5.0); Alkaline Phosphatase 53 U/L (39-117); Anion Gap 11 (12-20); Aspartate Amino Transferase 18 U/L (5-37); Bilirubin Total 0.5 mg/dL (0.0-1.0); Blood Urea Nitrogen 15 mg/dL (9-16); Calcium 9.1 mg/dL (8.4-10.2); Carbon Dioxide 28 mmol/L (22-29); Chloride 104 mmol/L (96-108); Cholesterol 142 mg/dL (<200); Estimated Glomerular Filt Rate > 60; Glucose Fasting 89 mg/dL (60-99); HDL Cholesterol 33 mg/dL (>40); LDL Cholesterol Calculated 94 mg/dL (<100); Potassium 3.9 mmol/L (3.3-5.1); Sodium 139 mmol/L (135-145); Total Protein 7.1 g/dL (6.5-8.0); Triglycerides 77 mg/dL (<150)
[2023-01-31 09:11] LABS: TSH reflex Free T4 0.98 uIU/mL (0.32-4.0)
== END 2023-01-31 07:38 | disposition home or self-care (01) ==
LOC: HO.LAB 07:37
PROVIDERS: PCP Internal Medicine; Visit Provider Nurse Practitioner Family
DX: E78.00 Pure hypercholesterolemia, unspecified (principal); F41.1 Generalized anxiety disorder
CPT/HCPCS: 36415; 80053; 80061; 84443

== ENCOUNTER 2023-05-29 05:35 | Emergency (ER) | payer OTHER, SELFPAY ==
--- NOTE | ~2023-05-29 | XR_ITS ---
Examination: Lumbar spine. Right RIBS with chest x-ray. Clinical indications: Fall with pain. COMPARISON: Chest 07/03/2020. Lumbar spine 04/06/2020. TECHNIQUE: Chest one view and right RIBS 3 views. Lumbar spine 3 views. FINDINGS: Chest: The lungs are well-expanded and clear. There is no pleural effusion or pneumothorax. The heart size and progress clarities normal. No gross bony abnormality seen. Multiple views of right ribs with a marker along the right lateral chest wall reveals no visible rib fracture. Lumbar spine: There is normal lumbar lordosis. The vertebral heights and alignment is normal. There is mild loss of L5-S1 disc height. Rest the disc heights are normal. No visible acute fracture, dislocation or lytic process seen. The soft tissues are normal. XR/XR lumbar spine 2-3V IMPRESSION: 1. Unremarkable chest exam. 2. No visible right rib fracture seen. 3. Mild degenerative disc changes L5-S1 disc level. No visible acute fracture or dislocation seen.
--- NOTE | ~2023-05-29 | XR_ITS ---
Examination: Lumbar spine. Right RIBS with chest x-ray. Clinical indications: Fall with pain. COMPARISON: Chest 07/03/2020. Lumbar spine 04/06/2020. TECHNIQUE: Chest one view and right RIBS 3 views. Lumbar spine 3 views. FINDINGS: Chest: The lungs are well-expanded and clear. There is no pleural effusion or pneumothorax. The heart size and progress clarities normal. No gross bony abnormality seen. Multiple views of right ribs with a marker along the right lateral chest wall reveals no visible rib fracture. Lumbar spine: There is normal lumbar lordosis. The vertebral heights and alignment is normal. There is mild loss of L5-S1 disc height. Rest the disc heights are normal. No visible acute fracture, dislocation or lytic process seen. The soft tissues are normal. XR/XR ribs RT min 3V w CXR1V IMPRESSION: 1. Unremarkable chest exam. 2. No visible right rib fracture seen. 3. Mild degenerative disc changes L5-S1 disc level. No visible acute fracture or dislocation seen.
[2023-05-29 05:52] VITALS: BP 111/58; PULSE 64; RESP 16; TEMP 36.5; O2SAT 97; BMI 47.0
--- NOTE | 2023-05-29 07:22 | ED_ITS ---
HPI - Fall General Chief Complaint: Fall Stated Complaint: Fall/Back pain Time Seen by Provider: 05/29/23 07:05 Source: patient Mode of arrival: ambulatory Limitations: no limitations History of Present Illness HPI Narrative: This is a pleasant 32 years old patient presented to the emergency department after a fall, he states that his slipped and fell he is complaining of right chest walland lower back, denies any neck pain any abdominal pain any head strike complaint: fall Onset (ago): hour(s) (3) Fall from: standing Place fall occurred: street Loss of consciousness: none Prolonged down time: no Symptoms prior to fall: none Severity: mild Associated symptoms (after fall): denies Related Data Home Medications Medication Instructions Recorded Confirmed ibuprofen 600 mg tablet 600 mg PO TID PRN 04/05/20 12/26/22 Previous Rx's Medication Instructions Recorded cyclobenzaprine 7.5 mg tablet 7.5 mg PO TID PRN muscle spasm #20 04/05/20 tabs albuterol sulfate 90 mcg/actuation 2 puff inhalation Q4-6H PRN 10/20/22 aerosol inhaler (ProAir HFA) shortness of breath or wheezing #8.5 grams omeprazole 20 mg capsule,delayed 20 mg PO DAILY #90 caps 10/22/22 release nystatin 100,000 unit/gram topical 1 appl topical BID #60 grams 12/26/22 powder budesonide-formoterol HFA 80 2 puff inhalation BID #10.2 grams 02/11/23 mcg-4.5 mcg/actuation aerosol inhaler (Symbicort) Allergies Allergy/AdvReac Type Severity Reaction Status Date / Time morphine [Morphine] Allergy Unknown PALPITATION, Verified 12/26/22 10:21 tachycardia, tachycardia Review of Systems ENT: Reports system reviewed and no additional complaints, except as documented Respiratory: Respiratory: Reports no additional respiratory complaints Musculoskeletal: Musculoskeletal: Reports no additional musculoskeletal complaints [facility] Past Medical History Attestation statement: The following information was validated with the patient. [facility] Narrative: Asthma Medical History Decreased hearing of left ear Obesity Fatty liver Hypertriglyceridemia GERD (gastroesophageal reflux disease) Obstructive sleep apnea History of gastrectomy Asthma Surgical History History of tonsillectomy History of sleeve gastrectomy Hx laparoscopic cholecystectomy Family History Family History Father Hypertension High cholesterol Mother Rheumatoid arthritis Maternal Grandmother Breast cancer Paternal Grandmother Breast cancer Pancreatic cancer Paternal Grandfather Colon cancer Son Mental health disorder Social History Social History Housing: House Alcohol intake: current Alcohol intake frequency: holidays/special occasions only Patient Tobacco Use Status: Never used Tobacco e-Cigarette/Vaping Use: Never Used Second Hand Smoke Exposure: No Advance Directives: No Advance Directives Information Provided: Yes service: No Current occupational status: employed Cognitive needs: No Hearing needs: No Vision needs: Yes (glasses) Physical Exam Vital Signs: Vital Signs: Last Vital Signs Temp 98.4 F 05/29/23 08:14 Pulse 67 05/29/23 08:14 Resp 14 05/29/23 08:14 BP 103/62 05/29/23 08:14 Pulse Ox 99 05/29/23 08:14 O2 Del Method Room Air 05/29/23 08:14 BMI result Body Mass Index 47.0 Const: General: cooperative Nutritional Appearance: average body habitus Orientation/consciousness: patient oriented x3 Limitations: no limitations HEENT: Head: Yes normal to inspection General nose exam: Normal external nose present Face and sinus: Yes normal facial exam Neck: Neck: Yes normal visual inspection Chest: Other: Tenderness in the right chest wall Resp: Effort & Inspection: normal respiratory effort Auscultation: clear to auscultation bilaterally Cardio: Jugular venous distension: no JVD Rate: regular rate Rhythm: regular rhythm GI: Inspection: Yes normal to inspection Palpation (GI): Soft to palpation Auscultation: normal bowel sounds Skin: General skin exam: no rashes or lesions noted Lesions: no lesions Rashes: no rashes Neuro: General: patient oriented x3 Cranial nerves: Yes CN's II-XII intact bilaterally Medications Administered Discontinued Medications Generic Name Dose Route Start Last Admin Trade Name Freq PRN Reason Stop Dose Admin Ibuprofen 800 mg 05/29/23 07:37 05/29/23 08:13 Ibuprofen 800 Mg Tablet PO 05/29/23 07:38 800 mg ONCE ONE Administration Medical Decision Making Medical Decision Making MDM Narrative: Patient presented after a fall we will get imaging chest and LS spine Differential Diagnosis Differential Diagnoses: The differential diagnosis associated with the presentation includes Differential diagnoses pneumothorax/rib fracture/pulmonary contusion/lumbar spine fracture Independent Interpretation I performed an independent interpretation of an: Plain X-Ray Interpretation: Personally reviewed and interpreted the imaging Radiology Impression Discussion of test interpretation with radiology: I have reviewed the radiologist's reading. Radiologist Impression: t RIBS 3 views. Lumbar spine 3 views. FINDINGS: Chest: The lungs are well-expanded and clear. There is no pleural effusion or pneumothorax. The heart size and progress clarities normal. No gross bony abnormality seen. Multiple views of right ribs with a marker along the right lateral chest wall reveals no visible rib fracture. Lumbar spine: There is normal lumbar lordosis. The vertebral heights and alignment is normal. There is mild loss of L5-S1 disc height. Rest the disc heights are normal. No visible acute fracture, dislocation or lytic process seen. The soft tissues are normal. XR/XR ribs RT min 3V w CXR1V IMPRESSION: 1. Unremarkable chest exam. 2. No visible right rib fracture seen. 3. Mild degenerative disc changes L5-S1 disc level. No visible acute fracture or dislocation seen. Dictated By: Siddharth Redding MD Signed By: <Electronically signed by Siddharth Redding MD in OV> 05/29/23 0747 DD/ 0628 TD/TT: Transcrip Tests considered The following testing was considered but not selected: I consider CT scan however low suspicious for vascular injury Prescription Management I considered prescription management with: Pain Medication Discharge Plan Discharge Clinical Impression: Chest wall contusion Qualifiers: Encounter type: initial encounter Laterality: right Qualified Code(s): S20.211A - Contusion of right front wall of thorax, initial encounter Back contusion Qualifiers: Encounter type: initial encounter Laterality: unspecified laterality Qualified Code(s): S20.229A - Contusion of unspecified back wall of thorax, initial encounter Patient Disposition: Home, Self-Care Instructions: Contusion in Adults (ED) Additional Instructions: You x-ray were normal no fracture seen, you can take ibuprofen 800 mg every 8 hours return if you worse Prescriptions: No Action albuterol sulfate [ProAir HFA] 90 mcg/actuation HFA aerosol inhaler 2 puff inhalation Q4-6H PRN (Reason: shortness of breath or wheezing) Qty: 8.5 4RF omeprazole 20 mg capsule,delayed release(DR/EC) 20 mg PO DAILY Qty: 90 1RF budesonide-formoterol [Symbicort] 80-4.5 mcg/actuation HFA aerosol inhaler 2 puff inhalation BID Qty: 10.2 3RF ibuprofen 600 mg tablet 600 mg PO TID PRN cyclobenzaprine 7.5 mg tablet 7.5 mg PO TID PRN (Reason: muscle spasm) Qty: 20 0RF nystatin 100,000 unit/gram powder 1 appl topical BID Qty: 60 0RF Referrals: Po,Svetlana Butterfield MD [Primary Care Provider] - 06/02/23 Stand Alone Forms: Work/School Release Interventions: ED Discharge Assessment Last Done: 05/29/23 08:23 Discharge Date/Time: 05/29/23 08:24
[2023-05-29] MEDS: Ibuprofen 800 MG TABLET PO (08:13)
[2023-05-29 08:14] VITALS: BP 103/62; PULSE 67; RESP 14; TEMP 36.9; O2SAT 99
== END 2023-05-29 08:24 | disposition home or self-care (01) ==
PROVIDERS: Emergency Provider Emergency Medicine; PCP Internal Medicine
DX: S20.211A Contusion of right front wall of thorax, initial encounter (principal); S20.229A Contusion of unspecified back wall of thorax, initial encounter; W01.0XXA Fall on same level from slipping, tripping and stumbling without subsequent striking against object, initial encounter; Y93.9 Activity, unspecified; Y92.410 Unspecified street and highway as the place of occurrence of the external cause; Y99.9 Unspecified external cause status
CPT/HCPCS: 71101; 72100; 99283; 99284

== ENCOUNTER 2023-08-31 14:42 | Outpatient (AMB) | payer OTHER, SELFPAY ==
[2023-08-31 14:43] VITALS: BP 124/68; PULSE 97; O2SAT 98; BMI 46.2
--- NOTE | 2023-08-31 14:43 | A.OFFPC_ITS ---
Vital Signs 08/31/23 14:43 Height 5 ft 8 in Weight 304 lb BMI 46.2 BP 124/68 Blood Pressure Location Lt brachial Position Sitting Pulse 97 Pulse Source Pulse Oximeter Pulse Oximetry (%) 98 Oxygen Delivery Method Room Air Intake Visit Reasons: bursitis in hands/numbness in hands Core Piler Required: No Allergies morphine [Morphine] Allergy (Unknown, Verified 08/31/23 14:43) PALPITATION, tachycardia, tachycardia Tobacco use date assessed: 08/31/23 Dental Screening Dental Screen Date: 08/31/23 HPI bursitis in hands/numbness in hands HPI Details 33 year old morbidly obese male with his tory of GERD, obstructive sleep apnea, generalized anxiety disorder, hypercholesterolemia last seen August 2021. Was seen in our office by another provider December 2022 for physical exam coming in today for acute visit. Was seen in the ED May 2023 after a fall on outstretched arms, had chest pain and contusion following the fall, XR negative and sent home with ibuprofen.? Was seen in 2011 at [facility] treatment center and diagnosed with bursitis in both hands. He went to the treatment center for 1-2 appointments and was given exercises and then stopped going. States there is swelling in both hands mainly surrounding the thumb and index fingers. He states the swelling is worse after work or when using his hands for prolonged periods. The pain will radiate into the wrist and fingertips. He has recently started having numbness in his entire hands which started 1-2 months ago which happens regardless of the pain and swelling. Often drops items because of the numbness. Takes Ibuprofen 800mg temporarily helps the pain. Patient also complaining of generalized joint pain which has been going on since last year with it worsening over the last few months. Family history of RA and unsure if he has been tested. Also endorses pain and numbness in the soles of his feet which persists throughout the day and not relieved with different shoes, inserts, stretching or massage. [facility] Medical History Decreased hearing of left ear Obesity Fatty liver Hypertriglyceridemia GERD (gastroesophageal reflux disease) Obstructive sleep apnea History of gastrectomy Asthma Surgical History History of tonsillectomy History of sleeve gastrectomy Hx laparoscopic cholecystectomy Family History Father Hypertension High cholesterol Mother Rheumatoid arthritis Maternal Grandmother Breast cancer Paternal Grandmother Breast cancer Pancreatic cancer Paternal Grandfather Colon cancer Son Mental health disorder Social History Housing: House Alcohol intake: current Alcohol intake frequency: holidays/special occasions only Patient Tobacco Use Status: Never used Tobacco e-Cigarette/Vaping Use: Never Used Second Hand Smoke Exposure: No service: No Current occupational status: employed Cognitive needs: No Hearing needs: No Vision needs: Yes (glasses) Questionnaire Thrive Questionnaire Date Thrive assessed: 08/31/23 I am a: Patient What is your living situation today?: I have a steady place to live Within the past 12 months, did the food you bought not last and you didn't have the money to get more?: Never true Within the past 12 months, did you worry whether your food would run out before you got money to buy more?: Never true Do you have trouble paying for medicines?: No Do you have trouble getting transportation to medical appointments?: No Do you have trouble paying your heating and electricity bill?: No Do you have trouble taking care of your child, family member or friend?: No Do you have trouble with day-to-day activities such as bathing, preparing meals, shopping, managing finances, etc.?: No Are you currently unemployed and looking for a job?: No Are you interested in more education?: No Please select the resources that you would like help with: None Currently or been in a relationship where the following occur: no concerns reported THRIVE Score: 0 AUDIT C Alcohol Use Questionnaire (AUDIT-C) 1. How often do you have a drink containing alcohol?: Monthly or less 2. How many drinks containing alcohol do you have on a typical day when you are drinking?: 1 or 2 Total Score: 1 JERROD-7 AMB Questionnaire JERROD-7 Date JERROD - 7 assessed: 08/31/23 Feeling nervous, anxious, or on edge: 0 = Not at all Not being able to stop or control worryin = Not at all Worrying too much about different things: 0 = Not at all Trouble relaxin = Not at all Being so restless that it is hard to sit still: 0 = Not at all Becoming easily annoyed or irritable: 0 = Not at all Feeling afraid as if something awful might happen: 0 = Not at all Total JERROD-7 score (0-4 normal; 5-9 mild; 10-14 moderate; 15-21 severe): 0 Source: Developed by Drs. Louie Giles, Ruthann Hollingsworth, Freddie Jasso and colleagues, with an educational reinier from [employer]. JERROD-7 Assessment Billing JERROD-7 Assessment Tool: JERROD-7 Assessment 21635 Review of Systems Const Details: Generalized body aches and pain in joints. Reports no additional complaints and Denies fever(s) Musc Details: Pain in joints and soles of the feet. Pain is worse in the arch of the foot. Denies any swelling of the feet or limited range of motion. Hand pain and swelling without warmth or redness primarily at the base of the thumb. Generalized joint pains without swelling in knees, wrists and ankles. Neuro Details: Numbness in hands in all fingers down to the fingertips. Not made worse by movement of the neck or arms. Numbness only after using hands for prolonged periods. Denies color changes in the hands. Physical exam (Primary Care) Vital Signs: Last Vital Signs Pulse 97 08/31/23 14:43 BP 124/68 08/31/23 14:43 Pulse Ox 98 08/31/23 14:43 Oxygen Delivery Method Room Air 08/31/23 14:43 BMI result Body Mass Index 46.2 Tobacco/Smoking Status: Tobacco use Status Tobacco use date assessed 08/31/23 08/31/23 14:44 Patient Tobacco Use Status Never used Tobacco 08/31/23 14:44 e-Cigarette/Vaping Use Never Used 08/31/23 14:44 Thrive Assessment: Date of Thrive Assessment Date Thrive assessed 08/31/23 08/31/23 14:44 Currently or been in a relationship where the following occur: no concerns reported Const General: cooperative, healthy appearing, comfortable and no acute distress Nutritional Appearance: obese Orientation/consciousness: patient oriented x3 Limitations: no limitations HENMT Head: Yes normal to inspection Eyes General: appearance normal, both eyes and all related structures Neck Neck: Yes normal visual inspection and Yes full ROM Resp Effort & Inspection: normal respiratory effort and able to speak in complete sentences Cardio Rate: regular rate Peripheral pulses: radial pulses present bilateral 2+ and dorsalis pedis present bilateral 2+ Back/Spine/Pelvis Cervical Spine: cervical ROM normal Neuro General: patient oriented x3, gait normal and moves all extremities Extrem Other: Normal ROM of hands and wrists, no swelling, redness or warmth in hands. Sensation and strength are normal and equal in both hands. Feet are normal to inspection bilaterally with no swelling, lesions, redness or warmth. Mild tenderness to palpation over the plantar aspect of the feet bilaterally. General: Yes normal to inspection and Yes full ROM Psych Appearance: grossly normal Mental Status: mental status grossly normal Speech and movement: Normal speech and movement present Affect: normal affect Attitude: cooperative Thought process: Normal thought process present Insight: Good insight present (Psych) Judgement: Good judgement present (Psych) Assessment and Plan Assessment & Plan (1) GERD (gastroesophageal reflux disease): Code(s): K21.9 - Gastro-esophageal reflux disease without esophagitis Plan: Continue on Omeprazole 20mg daily and avoid trigger foods such as tomato products, spicy foods, soda and caffeine. Avoid eating 4 hours prior to lying flat and elevate the head of the bed with 2-3 pillows to prevent the acid from moving into the esophagus. (2) Obesity: Code(s): E66.9 - Obesity, unspecified Qualifiers: Body mass index: BMI 40.0-44.9 Obesity classification: adult class 3 (BMI >= 40) Obesity type: due to excess calories Serious obesity comorbidity presence: without serious comorbidity Qualified Code(s): E66.01 - Morbid (severe) obesity due to excess calories; Z68.41 - Body mass index [BMI]40.0- 44.9, adult Plan: Encouraged healthy diet and exercise. (3) Hypercholesterolemia: Code(s): E78.00 - Pure hypercholesterolemia, unspecified Plan: Currently controlled with diet modifications and regular exercise. Last blood work January 2023 with LDL and triglycerides within normal limits. (4) Plantar fasciitis: Code(s): M72.2 - Plantar fascial fibromatosis Plan: Discussed weight loss. Referred to podiatry for possible injections vs orthotics. Patient was also given informational packet on plantar fasciitis which included exercises to reduce inflammation. (5) Family history of Fpuce-Lilbrnaor-Mrovk (WPW) syndrome: Code(s): Z82.49 - Family history of ischemic heart disease and other diseases of the circulatory system Plan: WPW family history request refer to cardiology, patient had appointment April 2023 which he missed and will reach out to the office to reschedule. (6) Hand pain: Code(s): M79.643 - Pain in unspecified hand Plan: order inflammatory markers to look for RA at patient request. Refer to rheumatology for further management. (7) Numbness in both hands: Code(s): R20.0 - Anesthesia of skin Plan: EMG ordered and will follow up after testing. Orders: Orders TSH reflex Free T4 08/31/23 M79.643 - Pain in unspecified hand NE electromyogram (EMG) 08/31/23 R20.0 - Anesthesia of skin Complete Blood Count Auto Diff 08/31/23 M79.643 - Pain in unspecified hand Thyroid Stimulating Hormone 08/31/23 M79.643 - Pain in unspecified hand Free T4 (Free Thyroxine) 08/31/23 M79.643 - Pain in unspecified hand Erythrocyte Sedimentation Rate 08/31/23 M79.643 - Pain in unspecified hand C Reactive Protein 08/31/23 M79.643 - Pain in unspecified hand Referrals Podiatry Referral M72.2 - Plantar fascial fibromatosis Rheumatology Referral M79.643 - Pain in unspecified hand Coding Level of Care Code Est Pt Level 4 (34042) Complex EM visit Add On G2211 Diagnoses GERD (gastroesophageal reflux disease) K21.9 Class 3 severe obesity due to excess calories without serious comorbidity with body mass index (BMI) of 40.0 to 44.9 in adult E66.01; Z68.41 Body mass index: BMI 40.0-44.9 Obesity classification: adult class 3 (BMI >= 40) Obesity type: due to excess calories Serious obesity comorbidity presence: without serious comorbidity Hypercholesterolemia E78.00 Plantar fasciitis M72.2 Family history of Mubji-Jbsnmbsuw-Higlg (WPW) syndrome Z82.49 Hand pain M79.643 Numbness in both hands R20.0 Additional Codes JERROD-7 Assessment Billing - JERROD-7 Assessment Tool: JERROD-7 Assessment 16471 ([id number])
== END 2023-08-31 15:25 | disposition home or self-care (01) ==
PROVIDERS: PCP Internal Medicine; Visit Provider Internal Medicine
DX: K21.9 Gastro-esophageal reflux disease without esophagitis (principal); E66.01 Morbid (severe) obesity due to excess calories; Z68.41 Body mass index [BMI] 40.0-44.9, adult; E78.00 Pure hypercholesterolemia, unspecified; M72.2 Plantar fascial fibromatosis; Z82.49 Family history of ischemic heart disease and other diseases of the circulatory system; M79.643 Pain in unspecified hand; R20.0 Anesthesia of skin
CPT/HCPCS: 99214; G2211

== ENCOUNTER 2023-09-12 07:33 | Outpatient (REF) | payer OTHER, SELFPAY ==
[2023-09-12 07:53] LABS: MANUAL DIFF FLAG NO
[2023-09-12 08:03] LABS: Basophils Absolute Auto 0.1 X10*3/uL (0.0-0.2); Basophils Percent Auto 0.7 % (0-2); Eosinophils Absolute Auto 0.2 X10*3/uL (0.0-0.4); Eosinophils Percent Auto 2.6 % (0-4); Hematocrit 41.5 % (42.0-52.0); Hemoglobin 13.9 g/dl (14.0-18.0); Imm Gran Abs Auto 0.03 X10*3/uL (0.00-0.03); Imm Gran Pct Auto 0.4 % (0.0-0.4); Lymphocytes Absolute Auto 2.4 X10*3/uL (1.2-4.9); Lymphocytes Percent Auto 31.7 % (20-40); Mean Corpuscular HGB Conc 33.5 g/dl (31.0-36.0); Mean Corpuscular Hemoglobin 26.1 pg (27.0-33.0); Mean Corpuscular Volume 77.9 fL (80.0-98.0); Mean Platelet Volume 8.9 fL (9.4-12.4); Monocytes Absolute Auto 0.5 X10*3/uL (0.1-1.2); Monocytes Percent Auto 7.2 % (2-11); Neutrophils Absolute Auto 4.3 x10*3/uL (2.0-8.3); Neutrophils Percent Auto 57.4 % (45-73); Platelet Count 274 X10*3/uL (160-400); Red Blood Count 5.33 X10*6/uL (4.60-5.80); Red Cell Distribution Width 13.5 % (11.0-16.0); White Blood Count 7.5 X10*3/uL (4.8-10.8)
[2023-09-12 08:37] LABS: C Reactive Protein 0.76 mg/dL (< or = 0.50)
[2023-09-12 08:54] LABS: Erythrocyte Sedimentation Rate 10 MM/HR (0-15); TSH reflex Free T4 1.83 uIU/mL (0.32-4.0)
== END 2023-09-12 07:34 | disposition home or self-care (01) ==
LOC: HO.LAB 07:33
PROVIDERS: PCP Internal Medicine; Visit Provider Internal Medicine
DX: E16.2 Hypoglycemia, unspecified (principal); E66.01 Morbid (severe) obesity due to excess calories; Z68.41 Body mass index [BMI] 40.0-44.9, adult; N48.30 Priapism, unspecified
CPT/HCPCS: 36415; 84443; 85025; 85652; 86140

== ENCOUNTER 2023-09-12 18:25 | Emergency (ER) | payer OTHER, SELFPAY ==
--- NOTE | 2023-09-12 | ECG_ITS ---
Test Reason : CP Blood Pressure : / mmHG Vent. Rate : 063 BPM Atrial Rate : 063 BPM P-R Int : 154 ms QRS Dur : 084 ms QT Int : 390 ms P-R-T Axes : 027 -08 -01 degrees QTc Int : 399 ms Normal sinus rhythm Minimal voltage criteria for LVH, may be normal variant ( R in aVL ) Borderline ECG When compared with ECG of 03-JUL-2020 18:06, No significant change was found Referred By: Lolita Pena Electronically Signed By:HAYLEE HAWLEY MD
[2023-09-12 18:35] VITALS: BP 120/63; BP 140/80; PULSE 59; PULSE 64; RESP 18; TEMP 37.1; O2SAT 99; BMI 46.0
--- NOTE | 2023-09-12 19:53 | ED.CHESTPAIN ---
HPI - Chest Pain General Chief Complaint: Chest Pain Stated Complaint: chest pain, now resolved Time Seen by Provider: 09/12/23 18:32 Source: patient Mode of arrival: EMS History of Present Illness ED Provider: Dr Pena HPI narrative: 33-year-old male with no significant past medical history other than asthma and GERD who experienced a transient episode of sharp midsternal chest discomfort while driving that he states radiated to his left arm and lasted for 3-5 minutes without any associated symptoms such as recent fever, chills, cough, sore throat, congestion or abdominal pain. Patient had no feelings of dizziness. Patient does endorse that he has not eaten or drank much today. He is completely asymptomatic at this time. Related Data Home Medications ?Medication ?Instructions ?Recorded ?Confirmed ibuprofen 600 mg tablet 600 mg PO TID PRN 04/05/20 12/26/22 Previous Rx's ?Medication ?Instructions ?Recorded cyclobenzaprine 7.5 mg tablet 7.5 mg PO TID PRN muscle spasm #20 04/05/20 tabs nystatin 100,000 unit/gram topical 1 appl topical BID #60 grams 12/26/22 powder budesonide-formoterol HFA 80 2 puff inhalation BID #10.2 grams 02/11/23 mcg-4.5 mcg/actuation aerosol inhaler (Symbicort) omeprazole 20 mg capsule,delayed 20 mg PO DAILY #90 caps 06/15/23 release albuterol sulfate 90 mcg/actuation 2 puff inhalation Q4-6H PRN 07/29/23 aerosol inhaler (ProAir HFA) shortness of breath or wheezing #8.5 grams Allergies Allergy/AdvReac Type Severity Reaction Status Date / Time morphine [Morphine] Allergy Unknown PALPITATION, Verified 09/12/23 18:36 tachycardia, tachycardia Review of Systems Review of Systems: Pertinent positives and negatives as stated in HPI [facility] Past Medical History Source: nursing notes reviewed Medical History Decreased hearing of left ear Obesity Fatty liver Hypertriglyceridemia GERD (gastroesophageal reflux disease) Obstructive sleep apnea History of gastrectomy Asthma Surgical History History of tonsillectomy History of sleeve gastrectomy Hx laparoscopic cholecystectomy Family History Family History Father Hypertension High cholesterol Mother Rheumatoid arthritis Maternal Grandmother Breast cancer Paternal Grandmother Breast cancer Pancreatic cancer Paternal Grandfather Colon cancer Son Mental health disorder Social History Social History Housing: House Alcohol intake: current Alcohol intake frequency: holidays/special occasions only Patient Tobacco Use Status: Never used Tobacco e-Cigarette/Vaping Use: Never Used Second Hand Smoke Exposure: No Advance Directives: No Advance Directives Information Provided: No Do you have a plan to hurt others: No Plan service: No Current occupational status: employed Cognitive needs: No Hearing needs: No Vision needs: Yes (glasses) Physical Exam Vital Signs: Vital Signs: Last Vital Signs Temp 98.2 F 09/12/23 20:21 Pulse 69 09/12/23 20:21 Resp 12 09/12/23 20:21 BP 114/77 09/12/23 20:21 Pulse Ox 98 09/12/23 20:21 O2 Del Method Room Air 09/12/23 20:21 BMI result Body Mass Index 46.0 VITAL SIGNS: Reviewed. GENERAL: Elevated BMI, Well developed, well nourished, in no acute distress. HEAD: Normocephalic/atraumatic EYES: PERRLA, EOMI EARS: Ext canals without abnormality NOSE: Nares patent bilateral OROPHARYNX: no oral lesions noted, posterior pharynx clear NECK: Supple, no adenopathy LUNGS: Normal breath sounds. No adventitious sounds or accessory muscle use. SpO2<99> CARDIOVASCULAR: Regular rate and rhythm without noted murmurs ABDOMEN: Soft, non-tender, non-distended with bowel sounds. MUSCULOSKELETAL: No tenderness, deformities, or effusions noted on gross inspection. EXTREMITIES: No cyanosis, clubbing or edema. SKIN: Inspection of the skin reveals no rashes NEUROLOGIC: Alert and oriented x 4. Strength and sensation to light touch were grossly intact x 4. Medical Decision Making Medical Decision Making MDM Narrative: 33-year-old male with history and clinical presentation, DDX: Acid reflux, anxiety, no clinical concern for pneumonia/viral illness/ACS. I reviewed all investigations and hematologic indices are chronically stable without leukocytosis and a microcytic anemia and and chemistry indices are negative for JANET/electrolyte derangements and I sensitivity troponin is undetectable. Patient is otherwise stable for discharge and my interpretation is he likely experienced an acute episode of acid reflux and is encouraged to follow-up with his primary care doctor. Differential Diagnosis Differential Diagnoses: The differential diagnosis associated with the presentation includes Please see the discussion above Admission/Observation Consideration of admission/observation: Escalation of care including admission/observation considered Please see the discussion above Lab Data MDM Lab Attestation statement: I reviewed the patient's lab results. Please see the discussion above 09/12/23 20:07 09/12/23 20:07 Labs: Lab Results 09/12/23 Range/Units 20:07 WBC 10.2 (4.8-10.8) X10*3/uL RBC 5.20 (4.60-5.80) X10*6/uL Hgb 13.8 L (14.0-18.0) g/dl Hct 40.5 L (42.0-52.0) % MCV 77.9 L (80.0-98.0) fL MCH 26.5 L (27.0-33.0) pg MCHC 34.1 (31.0-36.0) g/dl RDW 13.5 (11.0-16.0) % Plt Count 278 (160-400) X10*3/uL MPV 8.9 L (9.4-12.4) fL Immature Gran % (Auto) 0.4 (0.0-0.4) % Neut % (Auto) 64.7 (45-73) % Lymph % (Auto) 26.9 (20-40) % [place] % (Auto) 6.3 (2-11) % Eos % (Auto) 1.2 (0-4) % Baso % (Auto) 0.5 (0-2) % Lymph # (Auto) 2.8 (1.2-4.9) X10*3/uL [place] # (Auto) 0.6 (0.1-1.2) X10*3/uL Eos # (Auto) 0.1 (0.0-0.4) X10*3/uL Baso # (Auto) 0.1 (0.0-0.2) X10*3/uL Abs Immat Gran (auto) 0.04 H (0.00-0.03) X10*3/uL Absolute Neuts (auto) 6.6 (2.0-8.3) x10*3/uL Absolute Nucleated RBC 0.000 (0.0-0.012) X10*3/uL Nucleated RBC % (auto) 0.0 (0.0-0.2) /100WBC Sodium 141 (135-145) mmol/L Potassium 3.5 (3.3-5.1) mmol/L Chloride 107 (96-108) mmol/L Carbon Dioxide 24 (22-29) mmol/L Anion Gap 14 (12-20) BUN 21 H (9-16) mg/dL Creatinine 0.79 (0.5-1.4) mg/dL Estim Creat Clear Calc 178.8 Estimated GFR > 60 Random Glucose 98 (60-115) mg/dL Calcium 9.6 (8.4-10.2) mg/dL Troponin I High Sens < 2.7 (<3.5-35.0) ng/L Independent Interpretation I performed an independent interpretation of an: EKG Interpretation: Normal sinus rhythm, HR-63, no STEMI, [place]/QRS/QTC is within normal limits. External Record Review External record reviewed: Outpatient record and Prior outpatient labs Chronic Conditions Patient?s care impacted by: Other Asthma, acid reflux Critical Care Time Critical Care Time Critical Care Time: Yes Total Critical Care Time: 30 Attestation: I personally attest to this time spent taking care of the patient. Discharge Plan Discharge Clinical Impression: Atypical chest pain, Acid reflux Patient Disposition: Home, Self-Care Instructions: Diet for Stomach Ulcers and Gastritis (ED), Gastroesophageal Reflux Disease (ED) Additional Instructions: 1. Recommend following up with your primary care doctor by calling the office on Thursday. Do not hesitate to return to the emergency room for any acute worsening of symptoms. Prescriptions: No Action budesonide-formoterol [Symbicort] 80-4.5 mcg/actuation HFA aerosol inhaler 2 puff inhalation BID Qty: 10.2 3RF omeprazole 20 mg capsule,delayed release(DR/EC) 20 mg PO DAILY Qty: 90 1RF albuterol sulfate [ProAir HFA] 90 mcg/actuation HFA aerosol inhaler 2 puff inhalation Q4-6H PRN (Reason: shortness of breath or wheezing) Qty: 8.5 4RF ibuprofen 600 mg tablet 600 mg PO TID PRN cyclobenzaprine 7.5 mg tablet 7.5 mg PO TID PRN (Reason: muscle spasm) Qty: 20 0RF nystatin 100,000 unit/gram powder 1 appl topical BID Qty: 60 0RF Referrals: Po,Svetlana Butterfield MD [Primary Care Provider] - Print Language: Hebrew
[2023-09-12 20:11] LABS: MANUAL DIFF FLAG NO
[2023-09-12 20:14] LABS: Basophils Absolute Auto 0.1 X10*3/uL (0.0-0.2); Basophils Percent Auto 0.5 % (0-2); Eosinophils Absolute Auto 0.1 X10*3/uL (0.0-0.4); Eosinophils Percent Auto 1.2 % (0-4); Hematocrit 40.5 % (42.0-52.0); Hemoglobin 13.8 g/dl (14.0-18.0); Imm Gran Abs Auto 0.04 X10*3/uL (0.00-0.03); Imm Gran Pct Auto 0.4 % (0.0-0.4); Lymphocytes Absolute Auto 2.8 X10*3/uL (1.2-4.9); Lymphocytes Percent Auto 26.9 % (20-40); Mean Corpuscular HGB Conc 34.1 g/dl (31.0-36.0); Mean Corpuscular Hemoglobin 26.5 pg (27.0-33.0); Mean Corpuscular Volume 77.9 fL (80.0-98.0); Mean Platelet Volume 8.9 fL (9.4-12.4); Monocytes Absolute Auto 0.6 X10*3/uL (0.1-1.2); Monocytes Percent Auto 6.3 % (2-11); Neutrophils Absolute Auto 6.6 x10*3/uL (2.0-8.3); Neutrophils Percent Auto 64.7 % (45-73); Platelet Count 278 X10*3/uL (160-400); Red Cell Distribution Width 13.5 % (11.0-16.0); White Blood Count 10.2 X10*3/uL (4.8-10.8)
[2023-09-12 20:21] VITALS: BP 114/77; PULSE 69; RESP 12; TEMP 36.8; O2SAT 98
[2023-09-12 20:34] LABS: Anion Gap 14 (12-20); Blood Urea Nitrogen 21 mg/dL (9-16); Calcium 9.6 mg/dL (8.4-10.2); Carbon Dioxide 24 mmol/L (22-29); Chloride 107 mmol/L (96-108); Creatinine Clr Calc Pharmacy 178.8; Estimated Glomerular Filt Rate > 60; Glucose Random 98 mg/dL (60-115); Potassium 3.5 mmol/L (3.3-5.1); Sodium 141 mmol/L (135-145)
[2023-09-12 20:44] LABS: Troponin-I High Sensitivity < 2.7 ng/L (<3.5-35.0)
[2023-09-12 20:51] VITALS: BP 114/77; PULSE 69; RESP 12; TEMP 36.8; O2SAT 98
== END 2023-09-12 20:51 | disposition home or self-care (01) ==
PROVIDERS: Emergency Provider Student in an Organized Health Care Education/Training Program; PCP Internal Medicine
DX: R07.89 Other chest pain (principal); K21.9 Gastro-esophageal reflux disease without esophagitis; E78.00 Pure hypercholesterolemia, unspecified; J45.909 Unspecified asthma, uncomplicated
CPT/HCPCS: 36415; 80048; 84484; 85025; 93005; 99283; 99284

== ENCOUNTER → 2023-09-12 18:35 | Outpatient (BNV) | payer OTHER, SELFPAY | PROVIDERS: Emergency Provider Student in an Organized Health Care Education/Training Program; PCP Internal Medicine; Visit Provider Internal Medicine Cardiovascular Disease | DX: R07.9 Chest pain, unspecified (principal) | CPT/HCPCS: 93010 ==

== ENCOUNTER 2023-09-15 09:43 | Outpatient (REF) | payer OTHER, SELFPAY ==
--- NOTE | 2023-09-15 09:45 | EMG_ITS ---
Bilateral median and ulnar motor and sensory studies were performed. Bilateral radial sensory study was performed and paraspinal muscles were tested with a needle. Bilateral median and ulnar antecubital brachial sensory studies were also performed. IMPRESSION: 1. [id number] bilateral ulnar neuropathy across cubital tunnel. 2. Mild left median neuropathy across carpal tunnel. MD RKII Conteh/AGNES / [id number]
== END 2023-09-15 09:44 | disposition home or self-care (01) ==
LOC: HO.NEURO 09:43
PROVIDERS: PCP Internal Medicine; Visit Provider Internal Medicine
DX: R20.0 Anesthesia of skin (principal)
CPT/HCPCS: 95886; 95913

== ENCOUNTER 2023-10-23 13:24 | Outpatient (AMB) | payer OTHER, SELFPAY ==
--- NOTE | 2023-10-23 12:35 | MHC.OFFVIS ---
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 Patient reports his symptoms have been present for a while that started with swelling in his hands than followed by pain and occasional numbness. He frequently drops items. EMG done. He is also followed by an arthritis doctor for bilateral hand bursitis. States he has an upcoming appointment due to not being seen for a while. 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 He denies any injury. He reports that his pain has been present for approximately 3 months. He reports swelling and pain. He states he has intermittent numbness and tingling. In 2012, he followed up with his arthritis doctor and who diagnosed him with bursitis in hands and he has an upcoming appointment schedule to see him. He reports that secondary to pain, he drop things. He denies any previous treatment. An EMG study done in the past. 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 [facility] Medical History Decreased hearing of left ear Obesity Fatty liver Hypertriglyceridemia GERD (gastroesophageal reflux disease) Obstructive sleep apnea History of gastrectomy Asthma Surgical History History of tonsillectomy History of sleeve gastrectomy Hx laparoscopic cholecystectomy Family History Father Hypertension High cholesterol Mother Rheumatoid arthritis Maternal Grandmother Breast cancer Paternal Grandmother Breast cancer Pancreatic cancer Paternal Grandfather Colon cancer Son Mental health disorder Social History (Updated 10/23/23 @ 13:52 by Zaianb Gutierrez Emy) Housing: House Alcohol intake: current Alcohol intake frequency: holidays/special occasions only Patient Tobacco Use Status: Never used Tobacco e-Cigarette/Vaping Use: Never Used Second Hand Smoke Exposure: No service: No Current occupational status: employed 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, 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 Cognitive needs: No Hearing needs: No Vision needs: Yes (glasses) Review of Systems Const All systems reviewed & are unremarkable except as noted in HPI and below Physical Exam Const General: cooperative, healthy appearing, comfortable and no acute distress Orientation/consciousness: patient oriented x3 Neck Neck: Yes normal visual inspection and Yes no JVD Chest Chest palpation & inspection: normal inspection of the chest Resp Effort & Inspection: normal respiratory effort Auscultation: clear to auscultation bilaterally, crackles (no), rales (no), rhonchi (no) and wheezes (no) Cardio Jugular venous distension: no JVD Rate: regular rate Rhythm: regular rhythm Heart sounds: S1 normal heart sound present, S2 normal heart sound present, Murmur heart sound present (no) and Rub heart sound present (no) Neuro General: patient oriented x3 Extrem Other: Bilateral carpal tunnel: Normal to inspection. Tenderness over the carpal canal. Numbness and tingling over the median nerve distribution of the right hand. Able to make a full fist and fully extend all fingers. Positive Tinel's. General: Yes normal to inspection, Yes no pedal edema and Yes no calf tenderness Psych Appearance: grossly normal Mental Status: mental status grossly normal Speech and movement: Normal speech and movement present Results Reviewed Results Reviewed: IMPRESSION: 1. Krfa-ug-miyrmeho bilateral ulnar neuropathy across cubital tunnel. 2. Mild left median neuropathy across carpal tunnel. Assessment & Plan Assessment & Plan (1) Ulnar neuropathy at elbow: Comment: September 2023 Rjyc-ia-pdltwsbl bilateral ulnar neuropathy across cubital tunnel. 2. Mild left median neuropathy across carpal tunnel. Code(s): G56.20 - Lesion of ulnar nerve, unspecified upper limb Category: Medical (2) Left carpal tunnel syndrome: Comment: [id number] bilateral ulnar neuropathy across cubital tunnel. 2. Mild left median neuropathy across carpal tunnel. Code(s): G56.02 - Carpal tunnel syndrome, left upper limb Category: Medical (3) Carpal tunnel syndrome on right: Code(s): G56.01 - Carpal tunnel syndrome, right upper limb Category: Medical Plan We discussed options which include surgical intervention, cubital tunnel release with carpal tunnel release on the left versus cubital tunnel release on the right. He would like to take the time to think about this with his family as he need to take some time off from work. therefore, he will call us back to discuss. I did briefly go over with him about the procedures in detail and recovery course and he was fit for a left Velcro wrist splint to wear at night to help with this carpal tunnel syndrome. He will contact us in the future, when he is ready to proceed with surgery, and this would be a left cubital tunnel and carpal tunnel release and the right will be a cubital tunnel release and this will be with Dr. Willams. I did explain he needs to choose one side first, and the other can be done atleast 6 weeks post op. Patient Instructions: Scribed for Amina Urena PA-C, by Matt Saldivar medical record transcriber, on 10/23/2023 at 1:30 PM EST. I, Amina Urena PA-C, have personally reviewed and agree with the information entered by the scribe. Coding Level of Care Code New Pt Level 4 (67744) Diagnoses Ulnar neuropathy at elbow G56.20 Left carpal tunnel syndrome G56.02 Carpal tunnel syndrome on right G56.01
== END 2023-10-23 14:39 | disposition home or self-care (01) ==
PROVIDERS: PCP Internal Medicine; Visit Provider Physician Assistant
DX: G56.20 Lesion of ulnar nerve, unspecified upper limb (principal); G56.03 Carpal tunnel syndrome, bilateral upper limbs
CPT/HCPCS: 99204

== ENCOUNTER → 2023-10-23 13:24 | Outpatient (BNVA) | payer OTHER, SELFPAY | PROVIDERS: PCP Internal Medicine; Visit Provider Physician Assistant | DX: G56.20 Lesion of ulnar nerve, unspecified upper limb (principal); G56.03 Carpal tunnel syndrome, bilateral upper limbs | CPT/HCPCS: 99202 ==

== ENCOUNTER 2024-01-06 10:29 | Outpatient (AMB) | payer OTHER, SELFPAY ==
--- NOTE | 2024-01-06 10:50 | A.OFFVIS_ITS ---
Vital Signs 01/06/24 10:55 Height 5 ft 8 in Weight 305 lb BMI 46.4 Handedness Right Intake Visit Reasons: Preop LT Cubital/CTR 01/14/24 AR Intake Note: Morris is a 33 year old right hand dominant female who presents today with his pre operatively for a left cubital and carpal tunnel release scheduled for 01/14/[address] Willams. He expresses no concerns at this moment. He has questions regarding time of his surgery and he would like to know if he can find out at least 2 days before instead of one day before so he can arrange transportation for himself and his children for school. Accompanied by: Spouse Allergies morphine [Morphine] Allergy (Unknown, Verified 01/06/24 10:55) PALPITATION, tachycardia, tachycardia HPI HPI Preop LT Cubital/CTR 01/14/24 AR: Details: Morris is a 33 year old right hand dominant man who presents to discuss his left carpal tunnel syndrome. He complains of numbness in all fingers of his left hand. Symptoms intermittent, but daily, worse at night He also complains of numbness in the right small finger, and has known right cubital tunnel syndrome. He denies any changes in his symptoms or medical history. 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 [facility] Medical History Decreased hearing of left ear Obesity Fatty liver Hypertriglyceridemia GERD (gastroesophageal reflux disease) Obstructive sleep apnea History of gastrectomy Asthma Surgical History History of tonsillectomy History of sleeve gastrectomy Hx laparoscopic cholecystectomy Family History Father Hypertension High cholesterol Mother Rheumatoid arthritis Maternal Grandmother Breast cancer Paternal Grandmother Breast cancer Pancreatic cancer Paternal Grandfather Colon cancer Son Mental health disorder Social History Housing: House Alcohol intake: current Alcohol intake frequency: holidays/special occasions only Patient Tobacco Use Status: Never used Tobacco e-Cigarette/Vaping Use: Never Used Second Hand Smoke Exposure: No service: No Current occupational status: employed 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, 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 Cognitive needs: No Hearing needs: No Vision needs: Yes (glasses) Review of Systems Const All systems reviewed & are unremarkable except as noted in HPI and below Physical Exam Vital Signs: BMI result Body Mass Index 46.4 Const General: cooperative, healthy appearing and no acute distress Orientation/consciousness: patient oriented x3 HEENT Head: Yes normocephalic and Yes atraumatic Eyes EOM: EOMs intact bilaterally Resp Effort & Inspection: normal respiratory effort and able to speak in complete sentences Cardio Jugular venous distension: no JVD Skin General skin exam: turgor normal Rashes: no rashes Neuro General: patient oriented x3 Extrem Other: Evaluation of Left Upper Extremity: The patient is alert, oriented, and in no acute distress Neuro: Dense numbness to the tips of all digits today in clinic No thenar or intrinsic wasting Good APB muscle belly firing and good finger cross Good ABduction & ADduction Vascular: Cap refill brisk ROM: He can make a fist and extend all his digits No locking or catching Skin: No lacerations or abrasions. General: No Ecchymosis. No Erythema or evidence of infection. Nerve Conduction Study: IMPRESSION: 1. Mttf-ry-morpktdp bilateral ulnar neuropathy across cubital tunnel. 2. Mild left median neuropathy across carpal tunnel. Raiza Fine MD 09/15/2023 Psych Appearance: grossly normal Affect: normal affect Attitude: cooperative Assessment & Plan Assessment & Plan (1) Left carpal tunnel syndrome: Comment: [id number] bilateral ulnar neuropathy across cubital tunnel. 2. Mild left median neuropathy across carpal tunnel. Code(s): G56.02 - Carpal tunnel syndrome, left upper limb Category: Medical (2) Cubital tunnel syndrome on left: Code(s): G56.22 - Lesion of ulnar nerve, left upper limb Category: Medical (3) Cubital tunnel syndrome on right: Code(s): G56.21 - Lesion of ulnar nerve, right upper limb Category: Medical (4) Asthma: Code(s): J45.909 - Unspecified asthma, uncomplicated Category: Medical Qualifiers: Asthma complication type: uncomplicated Asthma persistence: intermittent Asthma severity: mild Qualified Code(s): J45.20 - Mild intermittent asthma, uncomplicated Plan Assessment & Plan: 1. Left carpal tunnel syndrome, mild With dense numbness today in clinic 2. Left Cubital tunnel syndrome, mild-moderate With dense numbness today in clinic I educated him about this condition I discussed operative and non-operative treatment options The patient would like to proceed with surgery I explained the risks of his sensation not returning, but that surgery is important to maintain muscle function and preserve any sensation possible. He expressed understanding I explained that it may take up to 9 months post-operatively for any sensation to return. The risks and benefits of operative treatment were discussed with the patient and the patient wishes to proceed with surgery. These risks include, but are not limited to risk of damage to blood vessels, nerves, tendons, infection, recurrence, incomplete relief of preoperative symptoms, persistent pain, possible need for further surgery and the risks associated with regional blocks and anesthesia. The plan is to take the patient to the operating room sometime on 01/14/24 for the following procedures: 1. Left cubital tunnel release, under general 2. Left carpal tunnel release, under general All of the preoperative paperwork including the consent was reviewed today. All the patient's questions were answered. The patient understands that they will be contacted by our production planner scheduler soon to schedule this procedure He denies Diabetes, blood thinners, heart, lung, kidney issues He has asthma, which is well-controlled 3. Right Cubital tunnel syndrome, mild-moderate Symptoms intermittent, but daily, worse at [facility] We can discuss treatment when he has recovered from his left side surgery Scribed for Loren Willams MD by Arya Dhillon, medical records administrator, on 01/06/24 at 11:10 AM, EST. Coding Level of Care Code Est Pt Level 4 (46173) Diagnoses Left carpal tunnel syndrome G56.02 Cubital tunnel syndrome on left G56.22 Cubital tunnel syndrome on right G56.21 Mild intermittent asthma without complication J45.20 Asthma complication type: uncomplicated Asthma persistence: intermittent Asthma severity: mild
[2024-01-06 10:55] VITALS: BMI 46.4
== END 2024-01-06 11:31 | disposition home or self-care (01) ==
PROVIDERS: PCP Internal Medicine; Visit Provider Orthopaedic Surgery
DX: G56.02 Carpal tunnel syndrome, left upper limb (principal); G56.22 Lesion of ulnar nerve, left upper limb; G56.21 Lesion of ulnar nerve, right upper limb; J45.20 Mild intermittent asthma, uncomplicated
CPT/HCPCS: 99214

== ENCOUNTER → 2024-01-06 10:29 | Outpatient (BNVA) | payer OTHER, SELFPAY | PROVIDERS: PCP Internal Medicine; Visit Provider Orthopaedic Surgery | DX: Z01.818 Encounter for other preprocedural examination (principal); G56.02 Carpal tunnel syndrome, left upper limb; G56.23 Lesion of ulnar nerve, bilateral upper limbs; J45.20 Mild intermittent asthma, uncomplicated | CPT/HCPCS: 99212 ==

== ENCOUNTER 2024-01-11 05:49 | Day surgery (SDC) | payer OTHER, SELFPAY ==
--- NOTE | 2024-01-07 14:36 | P.CONAN_ITS ---
Documented by User: Tala Fontenot NP 01/07/24 14:38 HPI - Anesthesia Eval Consult details Narrative: 33yo M for Left Cubital Tunnel Release, Carpal Tunnel Release BMI 46 PMFSH Active Problems Active Problems: All Active Problems Cubital tunnel syndrome on right (Acute) Cubital tunnel syndrome on left (Acute) Ulnar neuropathy at elbow (Acute) Left carpal tunnel syndrome (Acute) Numbness in both hands (Acute) Hand pain (Acute) Fungal rash of trunk (Acute) Umbilical hernia (Acute) Chest pain at rest (Acute) Family history of Yhudt-Yvkwreboy-Ifubp (WPW) syndrome (Acute) Knee pain, left (Acute) Upper respiratory tract infection (Acute) History of sleeve gastrectomy (Acute) Plantar fasciitis (Acute) Finger pain, left (Acute) Hypoglycemia (Acute) Hypercholesterolemia (Acute) Generalized anxiety disorder (Acute) Decreased hearing of left ear (Acute) Low back pain (Acute) Asthma (Acute) Priapism (Acute) Obesity (Acute) GERD (gastroesophageal reflux disease) (Acute) Obstructive sleep apnea (Acute) Past Medical History Medical History Decreased hearing of left ear Obesity Fatty liver Hypertriglyceridemia GERD (gastroesophageal reflux disease) Obstructive sleep apnea History of gastrectomy Asthma Family History Family History Father Hypertension High cholesterol Mother Rheumatoid arthritis Maternal Grandmother Breast cancer Paternal Grandmother Breast cancer Pancreatic cancer Paternal Grandfather Colon cancer Son Mental health disorder Surgical History Surgical History History of tonsillectomy History of sleeve gastrectomy Hx laparoscopic cholecystectomy Social History Social History Housing: House Alcohol intake: current Alcohol intake frequency: holidays/special occasions only Patient Tobacco Use Status: Never used Tobacco e-Cigarette/Vaping Use: Never Used Second Hand Smoke Exposure: No Use of substances other than those prescribed or required for medical reasons: No Are you DNR?: No Advance Directives: No Advance Directives Information Provided: Yes service: No Current occupational status: employed 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, 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 Cognitive needs: No Hearing needs: No Vision needs: Yes (glasses) Meds Allergies Allergy/AdvReac Type Severity Reaction Status Date / Time morphine [Morphine] Allergy Unknown PALPITATION, Verified 01/06/24 10:55 tachycardia, tachycardia Home Medications ?Medication ?Instructions ?Recorded ?Confirmed ?Last Taken ?Type ibuprofen 600 mg tablet 600 mg PO TID PRN 04/05/20 10/23/23 Unknown History Exam Pertinent Lab Results Pertinent Lab Results: Laboratory Tests 09/12/23 20:07 WBC 10.2 Hgb 13.8 L Hct 40.5 L Plt Count 278 Sodium 141 Potassium 3.5 Chloride 107 Carbon Dioxide 24 BUN 21 H Creatinine 0.79 Narrative Narrative: EKG 08/2023 Vent. Rate : 063 BPM Atrial Rate : 063 BPM P-R Int : 154 ms QRS Dur : 084 ms QT Int : 390 ms P-R-T Axes : 027 -08 -01 degrees QTc Int : 399 ms Normal sinus rhythm Minimal voltage criteria for LVH, may be normal variant ( R in aVL ) Borderline ECG When compared with ECG of 03-JUL-2020 18:06, No significant change was found Assessment and Plan Assessment Anesthesia Assessment: Chart Reviewed Documented by User: Dina Hernandez MD 01/11/24 07:29 PMFSH Past Medical History Medical History Decreased hearing of left ear Obesity Fatty liver Hypertriglyceridemia GERD (gastroesophageal reflux disease) Obstructive sleep apnea History of gastrectomy Asthma Family History Family History Father Hypertension High cholesterol Mother Rheumatoid arthritis Maternal Grandmother Breast cancer Paternal Grandmother Breast cancer Pancreatic cancer Paternal Grandfather Colon cancer Son Mental health disorder Family history of problems with anesthesia: No Surgical History Surgical History History of tonsillectomy History of sleeve gastrectomy Hx laparoscopic cholecystectomy History of Problems with Anesthesia: No Social History Social History Housing: House Alcohol intake: current Alcohol intake frequency: holidays/special occasions only Patient Tobacco Use Status: Never used Tobacco e-Cigarette/Vaping Use: Never Used Second Hand Smoke Exposure: No Use of substances other than those prescribed or required for medical reasons: No Are you DNR?: No Advance Directives: No Advance Directives Information Provided: Yes service: No Current occupational status: employed 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, 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 Cognitive needs: No Hearing needs: No Vision needs: Yes (glasses) Meds Allergies Allergy/AdvReac Type Severity Reaction Status Date / Time morphine [Morphine] Allergy Unknown PALPITATION, Verified 01/06/24 10:55 tachycardia, tachycardia Home Medications ?Medication ?Instructions ?Recorded ?Confirmed ?Last Taken ?Type ibuprofen 600 mg tablet 600 mg PO TID PRN 04/05/20 10/23/23 Unknown History Exam Airway Mallampati Class: III TM Dist: >3cm Neck ROM: Full Assessment and Plan Assessment Anesthesia Assessment: Anesthesia Plan Discussed Final Anesthetic Review Family History of Problems with Anesthesia: No History of Problems with Anesthesia: No NPO: Yes ASA Class: III Final Preanesthetic Review: No Changes in Pt Med Stat, Meds/Allgs Chart Reviewed and Anes Risks/Benef Reviewed Patient Risk: Intermediate Procedure Risk: Low Anesthetic Plan Anesthetic Plan: GA Disposition: Standard PACU
[2024-01-11] VITALS (8 sets, daily range): BP systolic 119–161; BP diastolic 73–95; PULSE 56–80; RESP 16–20; TEMP 36.2–36.3; O2SAT 95–99; BMI 32.5
[2024-01-11] MEDS: Lactated Ringers 1,000 ML 100 ML IVCONT (06:45)
--- NOTE | 2024-01-11 07:37 | MHC.SHP ---
Pre-Procedural Eval Section A - 24 Hr Update-Section A only Date of Service: 01/11/24 The patient is an INPATIENT: No Changes since office visit: No Cold of Flu in the past 2 weeks, No New Medical Problems, No Changes in Medication and No Patient answered all questions The patient has been examined within 24 hours of the surgical procedure. The History & Physical has been completed within 30 days and I have reviewed it.: Yes Section B - Complete if H&P > 30 days Chief Complaint: lesion of ulnar,carpal tunnel release Allergies: Allergies Allergy/AdvReac Type Severity Reaction Status Date / Time morphine [Morphine] Allergy Unknown PALPITATION, Verified 01/06/24 10:55 tachycardia, tachycardia Plan I have reviewed the history and physical and performed a pertinent physical examination on my patient. No changes have occurred unless specified. Time Spent With Patient Time: Total time managing care of this patient today ____ minutes.
--- NOTE | 2024-01-11 07:38 | W.PM.OPN ---
Operative Note Operative Note Date of Service: 01/11/24 Narrative: Operative Note Narrative: Preop diagnosis: 1. Left Cubital tunnel syndrome 2. Left carpal tunnel syndrome Postop diagnosis: Same Procedure: 1. Left Cubital Tunnel Release 2. Left carpal tunnel release Surgeon: Loren Willams MD Field Nurse Case Manager: None Anesthesia: General Anesthesia Findings: Thickening and fibrosis about the ulnar nerve at the cubital tunnel Implants: none Tourniquet time: 55 minutes EBL: 5.0 ml Specimen: none Drains: None Complications: None Disposition: Brought to the recovery room in stable condition Plan: Follow-up in 10-14 days for wound check, and suture removal Indications: The patient is 33 years old with left cubital tunnel syndrome and left carpal tunnel syndrome . The risks and benefits of operative treatment, including but not limited to risk of damage to blood vessels, nerves, tendons, infection, recurrence, persistent pain or numbness, incomplete resolution of preoperative symptoms, or need for further surgery were discussed with the patient and they wished to proceed with surgery. Procedure: Once consent was obtained patient was brought back to the operating suite and placed in the operating table in a supine position. Perioperative antibiotics and anesthesia was administered by the anesthesia team. The limb was prepped and draped in a standard surgical fashion, and a sterile tourniquet applied to the proximal aspect of the left upper extremity. The limb was elevated exsanguinated with Esmarch bandage and the tourniquet inflated to 250 mm of mercury for a total tourniquet time of 55 minutes. Once assured that we had a good block, a 2.0 cm longitudinal incision was made centered over the left carpal tunnel. The incision was made through the skin to the subcutaneous tissues using a #15 blade. Dissection was made down to the level of the transverse carpal ligament with care being taken to protect the palmar cutaneous nerve. Once the transverse carpal ligament was clearly visualized, a longitudinal incision was made in the transverse carpal ligament 1st using a #15 blade, then using tenotomy scissors under direct visualization. Care was taken to look for and protect the motor branch of the median nerve when seen in this area. Once satisfied with our carpal tunnel release the wound was irrigated with normal saline. The skin edges were reapproximated with some 4-0 Prolene suture. A 6 cm gently curved but longitudinally oriented incision was made centered over the cubital tunnel of the left upper extremity. Incision was made through the skin to the subcutaneous tissues using a # 15 Blade. I then dissected down to the level of the medial epicondyle and the cubital tunnel using tenotomy scissors. Care was taken to protect the medial antebrachial cutaneous nerve. The ulnar nerve was identified just posterior to the medial intermuscular septum. The ulnar nerve was released in a proximal to distal direction using tenotomy in iris scissors while directly visualizing and protecting the ulnar nerve. Thickening and fibrosis was appreciated about the ulnar nerve as it passed through the cubital tunnel. The ulnar nerve was assessed as I passed the elbow through full flexion and extension and was found to remain stable within its groove. At this point the tourniquet was deflated and hemostasis obtained with a brief period of local pressure and bipolar electrocautery. The wound was copiously irrigated with normal saline. The subcutaneous layer was closed with 4-0 Vicryl suture, and the skin edges were reapproximated with a running 4-0 Monocryl subcuticular closure. Steri-Strips and Mastisol were also applied.. The wound was infiltrated with some 1% lidocaine with epinephrine for postop pain control and sterile dressings and a posterior splint was applied. The patient appears to have tolerated the procedure well and with no complications. All digits were well vascularized at the conclusion of the case.
[2024-01-11] MEDS: fentaNYL citrate/PF 100 MCG/2 ML VIAL 50 MCG IVPUSH (09:57)
[2024-01-11] MEDS: oxyCODONE HCl Immed Release 5 MG TABLET PO (09:58)
== END 2024-01-11 10:50 | disposition home or self-care (01) ==
PROVIDERS: PCP Internal Medicine; Visit Provider Orthopaedic Surgery
PROC: (CPT 64718; principal; 2024-01-11 07:30)
PROC: (CPT 64721; 2024-01-11 07:30)
DX: G56.02 Carpal tunnel syndrome, left upper limb (principal); G56.22 Lesion of ulnar nerve, left upper limb; Z88.5 Allergy status to narcotic agent; R20.0 Anesthesia of skin; J45.20 Mild intermittent asthma, uncomplicated; Z98.84 Bariatric surgery status; Z90.49 Acquired absence of other specified parts of digestive tract; Z79.1 Long term (current) use of non-steroidal anti-inflammatories (NSAID)
CPT/HCPCS: 64721; 64718; J0131; J0690; J1100; J2003; J2004; J2250; J2405; J2704; J3010

== ENCOUNTER → 2024-01-11 05:49 | Outpatient (BNV) | payer OTHER, SELFPAY | PROVIDERS: PCP Internal Medicine; Visit Provider Orthopaedic Surgery | DX: G56.22 Lesion of ulnar nerve, left upper limb (principal); G56.02 Carpal tunnel syndrome, left upper limb | CPT/HCPCS: 64718; 64721 ==

== ENCOUNTER 2024-01-27 13:38 | Outpatient (AMB) | payer OTHER, SELFPAY ==
--- NOTE | 2024-01-27 13:43 | A.OFFVIS_ITS ---
Intake Visit Reasons: PO LT Cubital/CTR 01/11/24 AR Intake Note: Morris is a 33 year old right hand dominant male who presents today post operatively s/p left carpal tunnel and cubital tunnel release w/ Dr Willams DOS: 01/11/2024. Patient reports he has been having a burning sensation at the elbow that started 5 days after the surgery. Patient states his left forearm has been twitching for about a week now. He has been working on ROM at home. Stitches removed in office and steri strips applied on the left wrist. Allergies morphine [Morphine] Allergy (Unknown, Verified 01/27/24 13:44) PALPITATION, tachycardia, tachycardia HPI HPI PO LT Cubital/CTR 01/11/24 AR: Details: Patient is a 33-year-old male presents for postoperative evaluation status post left cubital and carpal tunnel releases, DOS 01/11/2024. Today, the patient reports that he is feeling well, and then the numbness and tingling in his left hand has completely resolved. However, the patient does report he is still experiencing some pain around both incision site, and then he noticed a particular sensation where his left elbow got very very hot unexpectedly, but with no erythema or edema. The patient reports that the Steri-Strips holding down the buried sutures on his left elbow came off, and the sutures were catching on things such as clothing and blankets, so his cut them down to the skin approximately 3-4 days ago. No other acute complaints or concerns at this time. ON LICENSE OF [facility] Medical History Decreased hearing of left ear Obesity Fatty liver Hypertriglyceridemia GERD (gastroesophageal reflux disease) Obstructive sleep apnea History of gastrectomy Asthma Surgical History History of tonsillectomy History of sleeve gastrectomy Hx laparoscopic cholecystectomy Family History Father Hypertension High cholesterol Mother Rheumatoid arthritis Maternal Grandmother Breast cancer Paternal Grandmother Breast cancer Pancreatic cancer Paternal Grandfather Colon cancer Son Mental health disorder Social History Housing: House Alcohol intake: current Alcohol intake frequency: holidays/special occasions only Patient Tobacco Use Status: Never used Tobacco e-Cigarette/Vaping Use: Never Used Second Hand Smoke Exposure: No service: No Current occupational status: employed 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 Neuro: Normal sensation of the tips of all digits of the left hand at this time Vascular: Cap refill brisk Pain: Patient reports tenderness to palpation of both incision sites on the left wrist and elbow Ucevt-nf-[id number] testing painless ROM: Patient is able to make a closed fist and extend0 all digits of the left hand fully and without difficulty Patient is able to flex the elbow to approximately 150 degrees and extend to 0 without difficulty Skin: Well Approximated and well healing incision sites on the volar aspect of the left wrist and the medial epicondyle of the left elbow General: No ecchymosis, erythema, or evidence of infection. Psych: Appears grossly normal Affect normal Attitude cooperative Assessment & Plan Assessment & Plan (1) Cubital tunnel syndrome on left: Code(s): G56.22 - Lesion of ulnar nerve, left upper limb Category: Medical (2) Left carpal tunnel syndrome: Comment: [id number] bilateral ulnar neuropathy across cubital tunnel. 2. Mild left median neuropathy across carpal tunnel. Code(s): G56.02 - Carpal tunnel syndrome, left upper limb Category: Medical Plan 1. Left cubital tunnel syndrome status post cubital tunnel release 2. carpal tunnel syndrome status post carpal tunnel release DOS 01/11 24 Patient appears to be recovering well postoperatively Patient is educated about the typical recovery course Patient is educated that he should not alter the sutures if possible when he has surgery on the right side Patient states understanding of this As it pertains to the patient's sensation of heat near the incision site in the elbow, there is no erythema, edema, significant tenderness, or area of fluctuance to suggest infection at this time Patient understands this Patient will follow-up in 4 weeks for lzhdj-jy-dstcpi check and to discuss praneeth elvis of the right side, sooner with any acute concerns Coding Level of Care Code Global (18606) Diagnoses Cubital tunnel syndrome on left G56.22 Left carpal tunnel syndrome G56.02
== END 2024-01-27 14:13 | disposition home or self-care (01) ==
LOC: HO.HOS 13:38
PROVIDERS: PCP Internal Medicine
DX: G56.22 Lesion of ulnar nerve, left upper limb (principal); G56.02 Carpal tunnel syndrome, left upper limb
CPT/HCPCS: 99024

== ENCOUNTER → 2024-01-27 13:38 | Outpatient (BNVA) | payer OTHER, SELFPAY | PROVIDERS: PCP Internal Medicine | DX: R20.8 Other disturbances of skin sensation (principal); Z48.811 Encounter for surgical aftercare following surgery on the nervous system; Z98.890 Other specified postprocedural states | CPT/HCPCS: 99212 ==

== ENCOUNTER 2024-02-01 17:30 | Outpatient (AMB) | payer OTHER, SELFPAY ==
[2024-02-01 17:33] VITALS: BP 128/80; BMI 48.0
--- NOTE | 2024-02-01 17:33 | A.OFFPC_ITS ---
Vital Signs 02/01/24 17:33 Height 5 ft 8 in Weight 316 lb BMI 48.0 BP 128/80 Blood Pressure Location Lt brachial Position Sitting Intake Visit Reasons: Annual PE Intake Note: Patient here for an Annual Physical Exam Ground Control Approach Technician Required: No Accompanied by: Self / Same As Patient Allergies morphine [Morphine] Allergy (Unknown, Verified 02/01/24 17:37) PALPITATION, tachycardia, tachycardia Medication List - Last Reconciled 02/01/24 by Svetlana Hickman MD albuterol sulfate 90 mcg/actuation (ProAir HFA) 2 puffs inhalation Q4-6H PRN budesonide-formoterol 80-4.5 mcg/actuation (Symbicort) 2 puffs inhalation BID cyclobenzaprine 7.5 mg PO TID PRN ibuprofen 600 mg PO TID PRN nystatin 1 appl topical BID omeprazole 20 mg PO DAILY Tobacco use date assessed: 08/31/23 Dental Screening Dental Screen Date: 02/01/24 Did you have a dental visit in the last 12 months?: No Did you have a dental problem in the last 6 months where you did not have access to dental care?: No Was dental information given to patient?: Patient has dentist HPI Annual PE HPI Details 33-year-old morbidly obese male with hyp ercholesterolemia and GERD coming in for physical exam. Last seen in August 2023. Review of the notes has been seeing Orthopedics status post left carpal tunnel and cubital tunnel release under Dr. Willams January 10. Patient has been seen by Rheumatology also. [facility] Medical History (Updated 02/01/24 @ 18:04 by Svetlana Hickman MD) Hand pain Numbness in both hands Decreased hearing of left ear Obesity Fatty liver Hypertriglyceridemia GERD (gastroesophageal reflux disease) Obstructive sleep apnea History of gastrectomy Asthma Surgical History History of tonsillectomy History of sleeve gastrectomy Hx laparoscopic cholecystectomy Family History (Updated 02/01/24 @ 17:51 by Svetlana Hickman MD) Father Hypertension High cholesterol Mother Rheumatoid arthritis Maternal Grandmother Breast cancer Paternal Grandmother Breast cancer Pancreatic cancer Myocardial infarct Paternal Grandfather Colon cancer Myocardial infarct Son Mental health disorder Social History (Updated 02/01/24 @ 17:52 by Svetlana Hickman MD) Housing: House Alcohol intake: current Comment: once a year bottle Patient Tobacco Use Status: Never used Tobacco e-Cigarette/Vaping Use: Never Used Second Hand Smoke Exposure: No service: No Current occupational status: employed 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 1. Little interest or pleasure in doing things: not at all 2. Feeling down, depressed, or hopeless: not at all 3. Trouble falling or staying asleep, or sleeping too much: not at all 4. Feeling tired or having little energy: more than half the days 5. Poor appetite or overeating: more than half the days 6. Feeling bad about yourself - or that you are a failure or have let yourself or your family down: not at all 7. Trouble concentrating on things, such as reading the newspaper or watching television: not at all 8. Moving or speaking so slowly that other people could have noticed. Or the opposite - being so fidgety or restless that you have been moving around a lot more than usual: not at all 9. Thoughts that you would be better off or of hurting yourself in some way: not at all Total score: 4 Source: Developed by Drs. Louie Giles, Ruthann Hollingsworth, Freddie Jasso and colleagues, with an educational reinier from [employer]. Thrive Questionnaire Date Thrive assessed: 02/01/24 I am a: Patient What is your living situation today?: I have a steady place to live Within the past 12 months, did the food you bought not last and you didn't have the money to get more?: Never true Within the past 12 months, did you worry whether your food would run out before you got money to buy more?: Never true Do you have trouble paying for medicines?: No Do you have trouble getting transportation to medical appointments?: No Do you have trouble paying your heating and electricity bill?: No Do you have trouble taking care of your child, family member or friend?: No Do you have trouble with day-to-day activities such as bathing, preparing meals, shopping, managing finances, etc.?: No Are you currently unemployed and looking for a job?: No Are you interested in more education?: No Please select the resources that you would like help with: None Currently or been in a relationship where the following occur: I choose not to answer THRIVE Score: 0 AUDIT C Alcohol Use Questionnaire (AUDIT-C) 1. How often do you have a drink containing alcohol?: Never Total Score: 0 JERROD-7 AMB Questionnaire JERROD-7 Date JERROD - 7 assessed: 08/31/23 Feeling nervous, anxious, or on edge: 0 = Not at all Not being able to stop or control worryin = Not at all Worrying too much about different things: 0 = Not at all Trouble relaxin = Not at all Being so restless that it is hard to sit still: 0 = Not at all Becoming easily annoyed or irritable: 0 = Not at all Feeling afraid as if something awful might happen: 0 = Not at all Total JERROD-7 score (0-4 normal; 5-9 mild; 10-14 moderate; 15-21 severe): 0 Source: Developed by Drs. Louie Giles, Ruthann Hollingsworth, Freddie Jasso and colleagues, with an educational reinier from [employer]. Review of Systems Const Denies poor appetite and Denies weakness Eyes Denies no additional complaints ENT Reports Normal hearing present, Denies dizziness, Denies nasal congestion, Denies tinnitus and Denies sore throat Card Denies chest pain, Denies syncope, Denies rapid heart rate and Denies dyspnea Resp Denies cough and Denies dyspnea GI Denies change in stool character, Reports constipation, Denies diarrhea, Denies nausea and Denies vomiting Denies dysuria and Denies urinary frequency Neuro Reports Normal hearing present, Denies confusion, Denies dizziness, Denies syncope and Denies weakness Psych Denies confusion Physical exam (Primary Care) Vital Signs: Last Vital Signs BP 128/80 02/01/24 17:33 BMI result Body Mass Index 48.0 Tobacco/Smoking Status: Tobacco use Status Tobacco use date assessed 08/31/23 02/01/24 17:39 Patient Tobacco Use Status Never used Tobacco 02/01/24 17:39 e-Cigarette/Vaping Use Never Used 02/01/24 17:39 PHQ-9: PHQ-9 Score PHQ-9: Total score 4 02/01/24 17:39 Thrive Assessment: Date of Thrive Assessment Date Thrive assessed 02/01/24 02/01/24 17:39 Currently or been in a relationship where the following occur: I choose not to answer Const General: alert and awake; No confusion Orientation/consciousness: No confusion HENMT Head: Yes normocephalic Ears: external ears normal and TM's normal bilaterally Face and sinus: Yes normal facial exam Mouth: moist mucous membranes Throat: Yes tonsils normal Eyes Conjunctivae: conjunctivae normal Pupils: Equal, round and reactive pupils present and Pupil accommodation reflex normal Direct Ophthalmoscopy: normal light reflex Neck Neck: No lymphadenopathy Thyroid: Thyroid normal Chest Chest palpation & inspection: normal inspection of the chest Resp Effort & Inspection: normal respiratory effort and no audible wheezes Auscultation: clear to auscultation bilaterally, no crackles, no wheezes and lung sounds not diminished Cardio Rate: regular rate Rhythm: regular rhythm Peripheral pulses: radial pulses present and dorsalis pedis present GI Other: Visual rectal exam is negative Palpation (GI): no masses Auscultation: normal bowel sounds and normoactive bowel sounds Rectal Exam - Male: Yes deferred Male General Exam: Yes normal external exam Skin General skin exam: no rashes or lesions noted Rashes: no rashes Neuro General: deep tendon reflexes 2+ bilaterally and No confusion Cranial nerves: Yes Equal, round and reactive pupils present, Yes Midline tongue present, Yes Normal hearing present and Yes Ability to bilaterally elevate shoulders present Cognition (Neuro): normal cognition Gait exam (Neuro): Normal gait present Motor exam (neuro): 5/5 motor strength present throughout Deep tendon reflexes (DTR's): Right brachioradialis reflex intensity grade: 2+, Left brachioradialis reflex intensity grade: 2+, Right patellar reflex intensity grade: 2+ and Left patellar reflex intensity grade: 2+ Extrem General: No edema Coding Level of Care Code Est Pt Prev Care 18-39y(30505) Diagnoses Annual physical exam Z00.00 Obstructive sleep apnea G47.33 Gastroesophageal reflux disease without esophagitis K21.9 Esophagitis presence: without esophagitis Mild intermittent asthma without complication J45.20 Asthma severity: mild Asthma persistence: intermittent Asthma complication type: uncomplicated Hypercholesterolemia E78.00 History of sleeve gastrectomy Z90.3 Cubital tunnel syndrome on right G56.21 Ulnar neuropathy at elbow, unspecified laterality G56.20 Laterality: unspecified laterality Left carpal tunnel syndrome G56.02 Morbid obesity E66.01 Anemia, unspecified type D64.9 Anemia type: unspecified type Assessment & Plan Assessment & Plan (1) Annual physical exam: Code(s): Z00.00 - Encounter for general adult medical examination without abnormal findings Category: Medical Plan: Patient is advised to eat healthy, keep well hydrated, keep active and have adequate sleep. (2) Obstructive sleep apnea: Comment: Moderate obstructive sleep apnea 2016 post surgery resolved but advised to monitor Code(s): G47.33 - Obstructive sleep apnea (adult) (pediatric) Category: Medical Plan: Continuing to monitor. Advised patient to lose the weight. (3) GERD (gastroesophageal reflux disease): Code(s): K21.9 - Gastro-esophageal reflux disease without esophagitis Category: Medical Qualifiers: Esophagitis presence: without esophagitis Qualified Code(s): K21.9 - Gastro-esophageal reflux disease without esophagitis Plan: Avoid the foods that causes that usually spicy foods, tomato products, juices, coffee, soda and foods that your sensitive to. After eating do not lie down, allow 3-4 hours before in lie down. And keep the head of bed above 30 degrees to avoid the acid from going up. (4) Asthma: Code(s): J45.909 - Unspecified asthma, uncomplicated Category: Medical Qualifiers: Asthma severity: mild Asthma persistence: intermittent Asthma complication type: uncomplicated Qualified Code(s): J45.20 - Mild intermittent asthma, uncomplicated Plan: Patient presently on albuterol inhaler and Symbicort (5) Hypercholesterolemia: Code(s): E78.00 - Pure hypercholesterolemia, unspecified Category: Medical Plan: Avoid fried foods, chicken skin, eggs, butter margarine, pastries and meat. Be it pork or beef they have a lot of cholesterol LDL goal of less than 130 and triglyceride of less than 150 (6) History of sleeve gastrectomy: Comment: 10/2016 Code(s): Z90.3 - Acquired absence of stomach [part of] Category: Surgical Plan: Continue to follow-up with bariatric surgeon. Keep active. Patient is following up with the bariatric surgeon for possible procedure (7) Cubital tunnel syndrome on right: Code(s): G56.21 - Lesion of ulnar nerve, right upper limb Category: Medical Plan: Monitor. (8) Ulnar neuropathy at elbow: Comment: September 2023 Ivid-me-pxbgdnbf bilateral ulnar neuropathy across cubital tunnel. 2. Mild left median neuropathy across carpal tunnel. Code(s): G56.20 - Lesion of ulnar nerve, unspecified upper limb Category: Medical Qualifiers: Laterality: unspecified laterality Qualified Code(s): G56.20 - Lesion of ulnar nerve, unspecified upper limb Plan: Continue to monitor. (9) Left carpal tunnel syndrome: Comment: [id number] bilateral ulnar neuropathy across cubital tunnel. 2. Mild left median neuropathy across carpal tunnel. Code(s): G56.02 - Carpal tunnel syndrome, left upper limb Category: Medical Plan: Patient follows up with ortho after January 04 status post release cubital and carpal tunnel syndrome. (10) Morbid obesity: Code(s): E66.01 - Morbid (severe) obesity due to excess calories Category: Medical Plan: Diet and exercise (11) Anemia: Code(s): D64.9 - Anemia, unspecified Category: Medical Qualifiers: Anemia type: unspecified type Qualified Code(s): D64.9 - Anemia, unspecified Plan: Blood work for follow-up requested Orders: Orders Complete Blood Count Auto Diff Today D64.9 - Anemia, unspecified Comprehensive Met. Panel Today D64.9 - Anemia, unspecified Ferritin Today D64.9 - Anemia, unspecified Vitamin B12 and Folate Today D64.9 - Anemia, unspecified Lipid Panel Today D64.9 - Anemia, unspecified, E78.00 - Pure hypercholesterolemia, unspecified IRON PROFILE Today D64.9 - Anemia, unspecified Free T4 (Free Thyroxine) Today D64.9 - Anemia, unspecified Reticulocyte Count Today D64.9 - Anemia, unspecified Thyroid Stimulating Hormone Today D64.9 - Anemia, unspecified Hemoglobin A1c Today D64.9 - Anemia, unspecified
== END 2024-02-01 18:07 | disposition home or self-care (01) ==
PROVIDERS: PCP Internal Medicine; Visit Provider Internal Medicine
DX: Z00.00 Encounter for general adult medical examination without abnormal findings (principal); G47.33 Obstructive sleep apnea (adult) (pediatric); E66.01 Morbid (severe) obesity due to excess calories; Z68.42 Body mass index [BMI] 45.0-49.9, adult; K21.9 Gastro-esophageal reflux disease without esophagitis; J45.20 Mild intermittent asthma, uncomplicated; E78.00 Pure hypercholesterolemia, unspecified; Z90.3 Acquired absence of stomach [part of]; G56.21 Lesion of ulnar nerve, right upper limb; G56.02 Carpal tunnel syndrome, left upper limb; D64.9 Anemia, unspecified

== ENCOUNTER → 2024-02-01 17:30 | Outpatient (BNVA) | payer OTHER, SELFPAY | PROVIDERS: PCP Internal Medicine; Visit Provider Internal Medicine | DX: Z00.00 Encounter for general adult medical examination without abnormal findings (principal); Z23 Encounter for immunization; G47.33 Obstructive sleep apnea (adult) (pediatric); K21.9 Gastro-esophageal reflux disease without esophagitis; J45.20 Mild intermittent asthma, uncomplicated; E78.00 Pure hypercholesterolemia, unspecified; G56.03 Carpal tunnel syndrome, bilateral upper limbs; E66.01 Morbid (severe) obesity due to excess calories; D64.9 Anemia, unspecified; Z90.3 Acquired absence of stomach [part of] | CPT/HCPCS: 90471; 90656; 96127; 99395 ==

== ENCOUNTER 2024-02-22 11:24 | Outpatient (AMB) | payer OTHER, SELFPAY ==
--- NOTE | 2024-02-22 11:30 | A.OFFVIS_ITS ---
Vital Signs 02/22/24 11:34 Height 5 ft 8 in Weight 316 lb BMI 48.0 Handedness Right Intake Visit Reasons: PO LT Cubital/CTR 01/11/24 AR Intake Note: Morris is a 33 year old right hand dominant male who presents today post operatively and for a range of motion check s/p left carpal tunnel and cubital tunnel release w/ Dr Willasm DOS: 01/11/2024. Patient reports he has aching pain in his left elbow and left wrist. Depending on his activities like pushing activities with his hand he says he gets a sharp pain around his incision site and into the elbow. When he attempts to grab soemthing he expresses not having his full strength. Denies numbness and tingling. Allergies morphine [Morphine] Allergy (Unknown, Verified 02/22/24 11:35) PALPITATION, tachycardia, tachycardia HPI HPI PO LT Cubital/CTR 01/11/24 AR: Details: Patient is a 33-year-old male who presents for postoperative evaluation status post left cubital and carpal tunnel releases, DOS 01/11/2024. Today, the patient reports that he is feeling better, however he is still noticing some out of proportion pain to light touch of the incision sites. The patient also states that he does not feel he has full range of motion or strength of his left wrist or hand. Patient expresses interest in occupational therapy at this time. No other acute complaints or concerns at this time. [facility] Medical History Hand pain Numbness in both hands Decreased hearing of left ear Obesity Fatty liver Hypertriglyceridemia GERD (gastroesophageal reflux disease) Obstructive sleep apnea History of gastrectomy Asthma Surgical History History of tonsillectomy History of sleeve gastrectomy Hx laparoscopic cholecystectomy Family History Father Hypertension High cholesterol Mother Rheumatoid arthritis Maternal Grandmother Breast cancer Paternal Grandmother Breast cancer Pancreatic cancer Myocardial infarct Paternal Grandfather Colon cancer Myocardial infarct Son Mental health disorder Social History Housing: House Alcohol intake: current Comment: once a year bottle Patient Tobacco Use Status: Never used Tobacco e-Cigarette/Vaping Use: Never Used Second Hand Smoke Exposure: No service: No Current occupational status: employed 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 Neuro: Normal sensation of the tips of all digits of the left hand at this time Vascular: Cap refill brisk Pain: Patient reports tenderness to palpation of both incision sites on the left wrist and elbow Sdeky-kp-ehxkyc testing painless ROM: Patient is able to make a closed fist and extend0 all digits of the left hand fully and without difficulty Patient is able to flex the elbow to approximately 150 degrees and extend to 0 without difficulty Skin: Well Approximated and well healing incision sites on the volar aspect of the left wrist and the medial epicondyle of the left elbow General: No ecchymosis, erythema, or evidence of infection. Psych: Appears grossly normal Affect normal Attitude cooperative Assessment & Plan Assessment & Plan (1) Cubital tunnel syndrome on left: Code(s): G56.22 - Lesion of ulnar nerve, left upper limb Category: Medical (2) Left carpal tunnel syndrome: Comment: [id number] bilateral ulnar neuropathy across cubital tunnel. 2. Mild left median neuropathy across carpal tunnel. Code(s): G56.02 - Carpal tunnel syndrome, left upper limb Category: Medical Plan 1. Left cubital tunnel syndrome status post cubital tunnel release 2. carpal tunnel syndrome status post carpal tunnel release DOS 01/11 24 Patient appears to be recovering well postoperatively Patient is educated about the typical recovery course Patient is educated that he should not alter the sutures if possible when he has surgery on the right side Patient states understanding of this Patient appears to be developing a hypersensitivity reaction around both incision sites on the left, and we will be referred to occupational therapy for range of motion strengthening and desensitization of left carpal and left cubital tunnel release sites Patient understands this Patient will follow-up when he feels he has recovered adequately from left-sided surgery to discuss surgery on the right, sooner with any acute concerns Coding Level of Care Code Global (73427) Diagnoses Cubital tunnel syndrome on left G56.22 Left carpal tunnel syndrome G56.02
[2024-02-22 11:34] VITALS: BMI 48.0
== END 2024-02-22 11:42 | disposition home or self-care (01) ==
PROVIDERS: PCP Internal Medicine
DX: G56.22 Lesion of ulnar nerve, left upper limb (principal); G56.02 Carpal tunnel syndrome, left upper limb
CPT/HCPCS: 99024

== ENCOUNTER → 2024-02-22 11:24 | Outpatient (BNVA) | payer OTHER, SELFPAY | PROVIDERS: PCP Internal Medicine | DX: M25.532 Pain in left wrist (principal); M25.522 Pain in left elbow; Z09 Encounter for follow-up examination after completed treatment for conditions other than malignant neoplasm; Z98.890 Other specified postprocedural states; Z86.69 Personal history of other diseases of the nervous system and sense organs | CPT/HCPCS: 99212 ==

== ENCOUNTER 2024-07-26 10:46 | Outpatient (AMB) | payer OTHER, SELFPAY ==
[2024-07-26 10:51] VITALS: BP 124/76; PULSE 80; O2SAT 98; BMI 49.3
--- NOTE | 2024-07-26 10:51 | A.OFFPC_ITS ---
Vital Signs 07/26/24 10:51 Height 5 ft 8 in Weight 324 lb BMI 49.3 BP 124/76 Blood Pressure Location Lt brachial Position Sitting Pulse 80 Pulse Source Pulse Oximeter Pulse Oximetry (%) 98 Oxygen Delivery Method Room Air Intake Visit Reasons: morbid obesity, gerd, asthma Allergies morphine [Morphine] Allergy (Unknown, Verified 07/26/24 10:52) PALPITATION, tachycardia, tachycardia Medication List - Last Reconciled 07/26/24 by Svetlana Hickman MD albuterol sulfate 90 mcg/actuation (ProAir HFA) 2 puffs inhalation Q4-6H PRN budesonide-formoterol 80-4.5 mcg/actuation (Symbicort) 2 puffs inhalation BID ibuprofen 600 mg PO TID PRN loratadine 10 mg PO DAILY nystatin 1 appl topical BID omeprazole 20 mg PO DAILY Tobacco use date assessed: 07/26/24 Dental Screening Dental Screen Date: 07/26/24 Did you have a dental visit in the last 12 months?: No Did you have a dental problem in the last 6 months where you did not have access to dental care?: No Was dental information given to patient?: Patient has dentist HPI morbid obesity, gerd, asthma HPI Details August 24 schedule for bypass conversion [facility] Medical History (Updated 07/26/24 @ 11:03 by Svetlana Hickman MD) Hand pain Numbness in both hands Decreased hearing of left ear Fatty liver Hypertriglyceridemia GERD (gastroesophageal reflux disease) Obstructive sleep apnea History of gastrectomy Asthma Surgical History History of tonsillectomy History of sleeve gastrectomy Hx laparoscopic cholecystectomy Family History Father Hypertension High cholesterol Mother Rheumatoid arthritis Maternal Grandmother Breast cancer Paternal Grandmother Breast cancer Pancreatic cancer Myocardial infarct Paternal Grandfather Colon cancer Myocardial infarct Son Mental health disorder Social History Housing: House Alcohol intake: current Comment: once a year bottle Patient Tobacco Use Status: Never used Tobacco Tobacco use type: Cigarette e-Cigarette/Vaping Use: Never Used Second Hand Smoke Exposure: No service: No Current occupational status: employed 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 1. Little interest or pleasure in doing things: not at all 2. Feeling down, depressed, or hopeless: not at all 3. Trouble falling or staying asleep, or sleeping too much: not at all 4. Feeling tired or having little energy: not at all 5. Poor appetite or overeating: not at all 6. Feeling bad about yourself - or that you are a failure or have let yourself or your family down: not at all 7. Trouble concentrating on things, such as reading the newspaper or watching television: not at all 8. Moving or speaking so slowly that other people could have noticed. Or the opposite - being so fidgety or restless that you have been moving around a lot more than usual: not at all 9. Thoughts that you would be better off or of hurting yourself in some way: not at all Total score: 0 Depression Screening Interpretation: Negative Depression Screening Done: Yes 50506 - PHQ-9 Billing: Yes Source: Developed by Drs. Louie Giles, Ruthann Hollingsworth, Freddie Jasso and colleagues, with an educational reinier from [employer] Thrive Questionnaire Date Thrive assessed: 07/26/24 I am a: Patient What is your living situation today?: I have a steady place to live Within the past 12 months, did the food you bought not last and you didn't have the money to get more?: Never true Within the past 12 months, did you worry whether your food would run out before you got money to buy more?: Never true Do you have trouble paying for medicines?: No Do you have trouble getting transportation to medical appointments?: Yes Do you have trouble paying your heating and electricity bill?: No Do you have trouble taking care of your child, family member or friend?: No Do you have trouble with day-to-day activities such as bathing, preparing meals, shopping, managing finances, etc.?: No Are you currently unemployed and looking for a job?: No Are you interested in more education?: No Please select the resources that you would like help with: None Currently or been in a relationship where the following occur: No concerns reported THRIVE Score: 1 AUDIT C Alcohol Use Questionnaire (AUDIT-C) 1. How often do you have a drink containing alcohol?: Never Total Score: 0 JERROD-7 AMB Questionnaire JERROD-7 Date JERROD - 7 assessed: 07/26/24 Feeling nervous, anxious, or on edge: 0 = Not at all Not being able to stop or control worryin = Not at all Worrying too much about different things: 0 = Not at all Trouble relaxin = Not at all Being so restless that it is hard to sit still: 0 = Not at all Becoming easily annoyed or irritable: 0 = Not at all Feeling afraid as if something awful might happen: 0 = Not at all Total JERROD-7 score (0-4 normal; 5-9 mild; 10-14 moderate; 15-21 severe): 0 Source: Developed by Drs. Louie Giles, Ruthann Hollingsworth, Freddie Jasso and colleagues, with an educational reinier from [employer] Physical exam (Primary Care) Vital Signs: Last Vital Signs Pulse 80 07/26/24 10:51 BP 124/76 07/26/24 10:51 Pulse Ox 98 07/26/24 10:51 Oxygen Delivery Method Room Air 07/26/24 10:51 BMI result Body Mass Index 49.3 Tobacco/Smoking Status: Tobacco use Status Tobacco use date assessed 07/26/24 07/26/24 10:57 Patient Tobacco Use Status Never used Tobacco 07/26/24 10:57 Tobacco use type Cigarette 07/26/24 10:57 e-Cigarette/Vaping Use Never Used 07/26/24 10:57 PHQ-9: PHQ-9 Score PHQ-9: Total score 0 07/26/24 11:07 Depression Screening Interpretation: Negative Thrive Assessment: Date of Thrive Assessment Date Thrive assessed 07/26/24 07/26/24 10:57 Currently or been in a relationship where the following occur: No concerns reported Const General: alert; No acute distress Eyes Conjunctivae: conjunctivae normal Resp Auscultation: clear to auscultation bilaterally Cardio Rate: regular rate Rhythm: regular rhythm GI Inspection: Yes normal to inspection Extrem General: Yes normal to inspection and No edema Coding Level of Care Code Est Pt Level 4 (72505) Diagnoses Morbid obesity E66.01 History of sleeve gastrectomy Z90.3 Gastroesophageal reflux disease without esophagitis K21.9 Esophagitis presence: without esophagitis Mild intermittent asthma without complication J45.20 Asthma complication type: uncomplicated Asthma persistence: intermittent Asthma severity: mild Additional Codes PHQ-9 - 26354 - PHQ-9 Billing: Yes ([id number]) Assessment & Plan Assessment & Plan (1) Morbid obesity: Code(s): E66.01 - Morbid (severe) obesity due to excess calories Category: Medical Plan: Patient follows up with bariatric surgery (2) History of sleeve gastrectomy: Comment: 10/2016 Code(s): Z90.3 - Acquired absence of stomach [part of] Category: Surgical Plan: Continue to follow-up with bariatric surgeon and planned conversion of the sleeve gastrectomy to bypass (3) GERD (gastroesophageal reflux disease): Code(s): K21.9 - Gastro-esophageal reflux disease without esophagitis Category: Medical Qualifiers: Esophagitis presence: without esophagitis Qualified Code(s): K21.9 - Gastro-esophageal reflux disease without esophagitis Plan: Avoid the foods that causes that usually spicy foods, tomato products, juices, coffee, soda and foods that your sensitive to. After eating do not lie down, allow 3-4 hours before in lie down. And keep the head of bed above 30 degrees to avoid the acid from going up. On omeprazole (4) Asthma: Code(s): J45.909 - Unspecified asthma, uncomplicated Category: Medical Qualifiers: Asthma complication type: uncomplicated Asthma persistence: intermittent Asthma severity: mild Qualified Code(s): J45.20 - Mild intermittent asthma, uncomplicated Plan: Patient on Symbicort as well as short-acting albuterol Plan History of Present Illness The patient is a 34-year-old male presenting with follow-up care for the management of morbid obesity, GERD, and post-surgical symptoms related to left carpal tunnel release. His history includes a sleeve gastrectomy in October 2016, primarily aimed at managing obesity and sleep apnea. Although post-surgery, his sleep apnea resolved, GERD has persisted. He is evaluating surgical conversion to gastric bypass with his bariatric surgeon as a more effective treatment for his reflux symptoms. In addition, the patient recently underwent a left carpal tunnel release surgery in December, aimed at alleviating symptoms of carpal tunnel syndrome. Despite improvement in numbness, there is persistent pain in the elbow region, especial ly noticeable when performing physical activities. The patient is attempting to follow up with orthopedics for further evaluation but experienced a rescheduled appointment. His recent medical evaluations indicate controlled hypercholesterolemia and inactive anemia management, suggesting continued monitoring may be beneficial. Health Maintenance - Regular monitoring of cholesterol levels - Follow-up concerning iron deficiency anemia and potential blood work to evaluate current status - Recent review of vaccination status indicates tetanus and pneumonia shots are up to date Social History - Activity level is constrained due to persistent pain post carpal tunnel surgery - Allergy to pollen leading to increased use of inhalers and exploration of medication for management - Patient is aware of the need for fasting prior to blood work for upcoming evaluations Review of Systems - Respiratory: Reports increased use of inhalers due to allergies; denies respiratory distress. - Dermatological/Allergies: Reports seasonal allergies exacerbated by pollen; denies other skin issues. - Neurological: Reports persistence of elbow pain post-surgery; denies numbness. - Gastrointestinal: Reports recurring reflux symptoms; denies other gastrointestinal disturbances. - Urinary: Denies dysuria or other urinary issues. - Cardiovascular: Denies chest pain or palpitations. - Musculoskeletal: Reports pain in elbow during physical activities. Physical Exam - Respiratory- Clear breath sounds, no wheezing or respiratory distress noted. - Cardiovascular- Regular rate and rhythm, no murmurs detected. - Gastrointestinal- Abdomen soft, non-tender, bowel sounds present. - Musculoskeletal- Persistent pain in the left elbow noted, particularly with extension and lifting movements. Results - Labs: Previous report of mild anemia with microcytic RBCs; cholesterol levels in target range. - Tests: None specifically completed during this visit. Plan The patient will maintain follow-up care with the bariatric surgeon to pursue surgical options for GERD. Continuation of omeprazole will help manage reflux symptoms meanwhile. The patient will attempt to reschedule with orthopedics to assess ongoing elbow pain post-surgery and evaluate further rehabilitation or intervention needs for carpal tunnel syndrome. Current hypercholesterolemia management appears adequate; continued monitoring is necessary. Blood work will be facilitated to assess potential anemia efficiently. An action plan to manage allergic symptoms is in place, with loratadine now added to his regimen. Follow- up on inhaler usage and continuation of omeprazole is advised until symptoms significantly improve. Patient was informed and verbally consented to the use of an ambient scribe for clinic note documentation during this visit. Discussion Notes I discussed the potential benefits of converting sleeve gastrectomy to gastric bypass with the patient to better address GERD. Risks include surgical complications but may provide superior reflux control. Omeprazole was noted to help with symptom control. We discussed the follow-up with orthopedics post carpal tunnel surgery and the necessity for rescheduling due to the missed appointment to evaluate persistent elbow pain. I provided education on managing hypercholesterolemia effectively with diet and medication adherence. The patient was counseled on iron deficiency anemia, emphasizing the importance of upcoming blood work to rule out any active deficiency. Allergic rhinitis management includes the newly prescribed loratadine for alleviating allergy symptoms, especially during pollen spikes. The patient will be alerted on the role of vascular health and the management of systemic consequences of uncontrolled cholesterol and respiratory conditions. Follow-ups will be arranged according to necessity, ensuring attention to all aspects of his care. Patient Instructions - Continue taking omeprazole as directed for GERD - Reschedule and attend orthopedic appointment for elbow pain evaluation - Follow up with blood work as planned, remembering to fast - Take loratadine daily for allergy management - Monitor cholesterol levels by adhering to medication instruction and lifestyle advice - Use inhalers as needed for respiratory symptoms and maintain oral hygiene after usage Medications: New loratadine 10 mg PO DAILY 30 tabs 4RF
--- OUTSIDE RECORDS SUMMARY | 2024-07-26 12:26 | XMS_ITS | Encounter Summary ---
Author Organization [facility] Address [address] [place] [phone] Phone Care Team Providers Care Manager Civil Name Role Phone Morgan Arvizu MD Primary Care Provider Unavailabl e Encounter Details Date Type Department Care Team (Late st Contact Info) Description 11/06/2016 Conversion Encounter [facility] - [address] [address] Social History Tobacco Use Types Packs/Day Years Used Date Smoking Tobacco: Never Assessed Sex and Gender Information Value Date Recorded Sex Assigned at Not on file Legal Sex Male 4:28 PM EDT Gender Identity Not on file Sexual Orientation Not on file documented as of this encounter Plan of Treatment Not on file documented as of this encounter Visit Diagnoses Not on filedocumented in this encounter Care Teams Manager Civil Relationship Specialty Start Date End Date Morgan Arvizu MD PCP - General 10/31/16 documented as of this encounter
--- OUTSIDE RECORDS SUMMARY | 2024-07-26 12:26 | XMS_ITS | Clinical Summary ---
Author Organization [address] [place] [address] Address [address] [place] [address] Phone Care Team Providers Care Administrative Library Assistant Name Role Phone Svetlana Hickman MD Primary Care Provider [phone] Allergies Active Allergy Reactions Criticality Noted Date Comments Morphine 08/27/2021 Medications omeprazole (PriLOSEC) [address] capsule Take 1 capsule (20 mg total) by mouth 1 (one) time each day. 05/06/2024 Active ibuprofen (ADVIL,MOTRIN) 100 mg/5 mL suspension Take 40 mL (800 mg total) by mouth if needed. Active Symbicort 80-4.5 mcg/actuation inhaler Inhale 2 puffs by mouth 2 (two) times a day. 05/11/2024 Active Active Problems Problem Noted Date Diagnosed Date Morbid obesity (CMS/[facility] V24, CMS/[facility] V28) 2024 Encounters Date Type Department Care Team Description 07/12/2024 Telephone Bariatric Surgery [address] [phone] Panfilo Tenorio MD insurance (Insurance) 06/21/2024 9:15 AM EDT Office Visit Bariatric Surgery [address] [phone] Panfilo Tenorio MD Class 3 severe obesity due to excess calories with body mass index (BMI) of 45.0 to 49.9 in adult, unspecified whether serious comorbidity present (CMS/HCC V24, CMS/[facility] V28) (Primary Dx) from Last 3 Months Surgical History Surgery Date Site/Laterality Comments OTHER SURGICAL HISTORY PROCEDURE: ---- OTHER ----; COMMENT: gastric sleeve TONSILLECTOMY ADENOIDECTOMY, BILATERAL MYRINGOTOMY AND TUBES PROCEDURE: PA TONSILLECTOMY & ADENOIDECTOMY <AGE 11 CHOLECYSTECTOMY PROCEDURE: PA LAPAROSCOPY SURG CHOLECYSTECTOMY Medical History Medical History Date Comments Asthma DX:Asthma Social History Tobacco Use Types Packs/Day Years Used Date Smoking Tobacco: Never Smokeless Tobacco: Never Alcohol Use Standard Drinks/Week Comments Yes 0 (1 standard drink = 0.6 oz pur e alcohol) Sex and Gender Information Value Date Recorded Sex Assigned at Not on file Legal Sex Male 4:38 AM EST Gender Identity Not on file Sexual Orientation Not on file Obstetrics History Last Filed Vital Signs Vital Sign Reading Time Taken Comments Blood Pressure 133/82 06/21/2024 9:07 AM EDT Pulse 64 06/21/2024 9:07 AM EDT Temperature 36.9 ??C (98.4 ??F) 06/21/2024 9:07 AM ED T Respiratory Rate - - Oxygen Saturation - - Inhaled Oxygen Concentration - - Weight 147 kg (324 lb) 06/21/2024 9:07 AM EDT Height 172.7 cm (5' 8 ) 06/21/2024 9:07 AM EDT Body Mass Index 49.26 06/21/2024 9:07 AM EDT Plan of Treatment Upcoming Encounters Date Type Department Care Team (Latest Contact Info) Description 08/01/2024 10:00 AM EDT Pre-Admission Testing [facility] Pre-Admission Testing [address] [place] [phone] 08/24/2024 11:00 AM EDT Hospital Encounter [facility] Main OR [address] [place] [phone] Panfilo Tenorio MD [address] [address] 08/24/2024 11:00 AM EDT - 08/24/2024 1:30 PM EDT Surgery [facility] OR [address] [place] [phone] Panfilo Tenorio MD [address] [address] LAURE CONVERSION OF SLEEVE TO BYPASS [50346 (CPT??)] Scheduled Procedures Name Priority Associated Diagnoses Date/Ti me BYPASS GASTRIC ROBOT Morbid obesity ([facility] V24, [facility] V28) 08/24/2024 11:00 AM EDT Health Maintenance Due Date Last Done Comments Cholesterol Screening (Lipid Panel) 02/23/2022 Depression Screening 02/23/2022 HIV Screening 02/23/2022 Hepatitis C Screening 02/23/2022 Social Influencers of Health Screening 02/23/2022 COVID-19 Vaccine ( season) 2023 01/03/2021, 06/29/2020, 06/05/2020 DTaP,Tdap,and Td Vaccines (11 - Td or Tdap) 11/03/2030 11/03/2020, 12/29/2019, 07/25/2014, Additional history exists HIB Vaccines Completed 01/12/1991 IPV Vaccines Completed 12/27/1993, 04/24, 02/19/1990, Additional history exists MMR Vaccines Completed 12/27/1993, 01/12/1991 Hepatitis B Vaccines Completed 12/06/1997, 03/06/1997, 01/31/1997 Meningococcal ACWY Vaccine Completed 11/26/2006 Pneumococcal Vaccine: Pediatrics (0 to 5 Years) and At-Risk Patients (6 to 64 Years) Aged Out 03/08/2019 No longer eligible based on patient's age to complete this topic Influenza Vaccine Completed 02/01/2024, , 12/24/2016, Additional history exists HPV Vaccines Aged Out No longer eligi ble based on patient's age to complete this topic Hepatitis A Vaccines Aged Out No long er eligible based on patient's age to complete this topic Meningococcal B Vaccine Aged Out No l onger eligible based on patient's age to complete this topic RSV Immunization Patients Under 20 months Aged Out No longer eligible based on patient's age to complete this topic Varicella Vaccines Aged Out No longer eligible based on patient's age to complete this topic Insurance [facility] Care Teams Administrative Library Assistant Relationship Specialty Start Date End Date Svetlana Hickman MD [address] [place] [address] [address] [facility] [place], [place] [id number] PCP - General Internal Medicine 06/20/24
--- OUTSIDE RECORDS SUMMARY | 2024-07-26 12:26 | XMS_ITS | Encounter Summary ---
Author Organization [facility] Address [address] [place] [address] Phone Care Team Providers Care Automotive Machinist Apprentice Name Role Phone Mrogan Arvizu MD Primary Care Provider Unavailabl e Encounter Details Date Type Department Care Team (Late st Contact Info) Description 07/10/2009 Documentation EM Family Medicine [address] [place] [address] Family Medicine, Physician [address] [place], [place] [phone] Social History Tobacco Use Types Packs/Day Years [...] on filedocumented in this encounter Care Teams Automotive Machinist Apprentice Relationship Specialty Start Date End Date Morgan Arvizu MD PCP - General 10/31/16 documented as of this encounter
--- OUTSIDE RECORDS SUMMARY | 2024-07-26 12:26 | XMS_ITS | Encounter Summary ---
Author Organization [facility] Address [address] [place] [phone] Phone Care Team Providers Care Bobbin Sorter Name Role Phone Morgan Arvizu MD Primary Care Provider Unavailabl e Encounter Details Date Type Department Care Team (Late st Contact Info) Description 07/10/2009 Documentation EM Family Medicine [address] [place] [address] Family Medicine, Physician [address] [place], [place] [phone] Social History Tobacco Use Types Packs/Day Years [...] on filedocumented in this encounter Care Teams Bobbin Sorter Relationship Specialty Start Date End Date Morgan Arvizu MD PCP - General 10/31/16 documented as of this encounter
--- OUTSIDE RECORDS SUMMARY | 2024-07-26 12:26 | XMS_ITS | Clinical Summary ---
Author Organization [facility] Address [address] [place] [phone] Phone Care Team Providers Care Remote Sensing Advisor Name Role Phone Morgan Arvizu MD Primary Care Provider Unavailabl e Immunizations Immunization Administration Dates Next Due DTP 12/27/1993, 1,05/20/1990,02/19,1989 H1N1 02/22/2009 Hep B, ped/adol 12/06/1997,03/06/1997,01/31/1997 Hib (PRP-T) 01/12/1991 IPV 05/20/1990,02/19/1990,1989 Influenza, injectable, trivalent 02/22/2009,04/23,01/28/2007 MMR 12/27/1993,01/12/1991 Meningococcal Conj (Menactra) MCV4P 11/26/2006 OPV 12/27/1993 Td (adult) (MBL), 2 Lf tetan us toxoid, PF, adsorbed 10/06/2002 Tdap 05/11/2008 Family History Relation Name Status Comments Brother 1 Alive Brother: Alive and well, Alive and well Brother 2 Alive Brother: Alive and well, Alive and well Father Alive Father: Alive a nd well Mother Alive Mother: Alive a nd well Other Family history of Diabetes mellitus, Family history of Obesity Social History Tobacco Use Types Packs/Day Years Used Date Smoking Tobacco: Never Assessed Sex and Gender Information Value Date Recorded Sex Assigned at Not on file Legal Sex Male 4:28 PM EDT Gender Identity Not on file Sexual Orientation Not on file Last Filed Vital Signs Vital Sign Reading Time Taken Comments Blood Pressure 122/80 07/06/2009 12:00 AM EDT Pulse - - Temperature - - Respiratory Rate - - Oxygen Saturation - - Inhaled Oxygen Concentration - - Weight 129 kg (284 lb 8 oz) 07/06/2009 12:00 AM EDT Height 172.1 cm (5' 7.75 ) 07/06/2009 12:00 AM E DT Body Mass Index 43.58 07/06/2009 12:00 AM EDT Plan of Treatment Health Maintenance Due Date Last Done Comments Varicella Vaccines (1 of 2 - 13+ 2-dose series) 2002 DTaP,Tdap,and Td Vaccines (7 - Td or Tdap) 05/11/2018 05/11/2008, 10/06/2002, 12/27/1993, Additional history exists Influenza Vaccines (#1) 2023 02/23/20, 05/11/2008, 01/28/2007 COVID-19 Vaccine ( season) 2023 HIB Vaccines Completed 01/12/1991 IPV Vaccines Completed 12/27/1993, 04/24, 02/19/1990, Additional history exists MMR Vaccines Completed 12/27/1993, 01/12/1991 Hepatitis B Vaccines Completed 12/06/1997, 03/06/1997, 01/31/1997 Meningococcal Vaccine Completed 11/26/2006 HPV Vaccines Aged Out No longer eligi ble based on patient's age to complete this topic Hepatitis A Vaccines Aged Out No long er eligible based on patient's age to complete this topic Men B Vaccine Aged Out No longer elig ible based on patient's age to complete this topic Pneumococcal Vaccine Aged Out No long er eligible based on patient's age to complete this topic Care Teams Remote Sensing Advisor Relationship Specialty Start Date End Date Morgan Arvizu MD PCP - General 10/31/16
== END 2024-07-26 11:15 | disposition home or self-care (01) ==
LOC: HO.HMCH 10:47
PROVIDERS: PCP Internal Medicine; Visit Provider Internal Medicine
DX: K21.9 Gastro-esophageal reflux disease without esophagitis (principal); E66.01 Morbid (severe) obesity due to excess calories; Z68.42 Body mass index [BMI] 45.0-49.9, adult; Z90.3 Acquired absence of stomach [part of]; J45.20 Mild intermittent asthma, uncomplicated

== ENCOUNTER → 2024-07-26 10:46 | Outpatient (BNVA) | payer OTHER, SELFPAY | PROVIDERS: PCP Internal Medicine; Visit Provider Internal Medicine | DX: E66.01 Morbid (severe) obesity due to excess calories (principal); Z68.42 Body mass index [BMI] 45.0-49.9, adult; K21.9 Gastro-esophageal reflux disease without esophagitis; J45.20 Mild intermittent asthma, uncomplicated; Z79.899 Other long term (current) drug therapy; Z90.3 Acquired absence of stomach [part of] | CPT/HCPCS: 96127; 99212 ==

== ENCOUNTER 2024-11-01 15:46 | Outpatient (AMB) | payer OTHER, SELFPAY ==
--- NOTE | 2024-11-01 15:54 | A.OFFPC_ITS ---
Vital Signs 11/01/24 15:55 Height 5 ft 8 in Weight 294 lb 8 oz BMI 44.8 BP 130/80 Blood Pressure Location Lt brachial Position Sitting Pulse 63 Pulse Source Pulse Oximeter Temp 97.5 F Temp Source Temporal Artery Scan Pulse Oximetry (%) 96 Oxygen Delivery Method Room Air Intake Visit Reasons: [facility] 10/18 loss of consciousness Intake Note: Patient is here to follow-up after a visit the emergency department at [facility] on 10/18/24. Process Improvement Analyst Required: No Assembler Golf Wood Head: Not Required per policy Accompanied by: Self / Same As Patient Allergies morphine (Morphine) Allergy (Unknown, Verified 11/01/24 15:55) PALPITATION, tachycardia, tachycardia Tobacco use date assessed: 11/01/24 Dental Screening Dental Screen Date: 07/26/24 HPI [facility] 10/18 loss of consciousness HPI Details October 18, 2024 woke up in the hospital and lost memory patient passed out. R occipital trauma .,was told everything was good. [facility] Medical History (Updated 11/01/24 @ 16:25 by Svetlana Hickman MD) Hand pain Numbness in both hands Decreased hearing of left ear Fatty liver Hypertriglyceridemia GERD (gastroesophageal reflux disease) Obstructive sleep apnea History of gastrectomy Asthma Surgical History (Updated 11/01/24 @ 16:19 by Svetlana Hickman MD) History of gastric bypass History of tonsillectomy History of sleeve gastrectomy Hx laparoscopic cholecystectomy Family History Father Hypertension High cholesterol Mother Rheumatoid arthritis Maternal Grandmother Breast cancer Paternal Grandmother Breast cancer Pancreatic cancer Myocardial infarct Paternal Grandfather Colon cancer Myocardial infarct Son Mental health disorder Social History Housing: House Alcohol intake: current Comment: once a year bottle Patient Tobacco Use Status: Never used Tobacco Tobacco use type: Cigarette e-Cigarette/Vaping Use: Never Used Second Hand Smoke Exposure: No service: No Current occupational status: employed 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, 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 Cognitive needs: No Hearing needs: No Vision needs: Yes (glasses) Questionnaire Thrive Questionnaire Date Thrive assessed: 07/26/24 I am a: Patient What is your living situation today?: I have a steady place to live Within the past 12 months, did the food you bought not last and you didn't have the money to get more?: Never true Within the past 12 months, did you worry whether your food would run out before you got money to buy more?: Never true Do you have trouble paying for medicines?: No Do you have trouble getting transportation to medical appointments?: Yes Do you have trouble paying your heating and electricity bill?: No Do you have trouble taking care of your child, family member or friend?: No Do you have trouble with day-to-day activities such as bathing, preparing meals, shopping, managing finances, etc.?: No Are you currently unemployed and looking for a job?: No Are you interested in more education?: No Please select the resources that you would like help with: None Currently or been in a relationship where the following occur: No concerns reported THRIVE Score: 1 JERROD-7 AMB Questionnaire JERROD-7 Date JERROD - 7 assessed: 07/26/24 Source: Developed by Drs. Louie Giles, Ruthann Hollingsworth, Freddie Jasso and colleagues, with an educational reinier from [employer]. Physical exam (Primary Care) Vital Signs: Last Vital Signs Temp 97.5 F 11/01/24 15:55 Pulse 63 11/01/24 15:55 BP 130/80 11/01/24 15:55 Pulse Ox 96 11/01/24 15:55 Oxygen Delivery Method Room Air 11/01/24 15:55 BMI result Body Mass Index 44.8 Tobacco/Smoking Status: Tobacco use Status Tobacco use date assessed 11/01/24 11/01/24 16:04 Patient Tobacco Use Status Never used Tobacco 11/01/24 16:04 Tobacco use type Cigarette 11/01/24 16:04 e-Cigarette/Vaping Use Never Used 11/01/24 16:04 Thrive Assessment: Date of Thrive Assessment Date Thrive assessed 07/26/24 11/01/24 16:04 Currently or been in a relationship where the following occur: No concerns reported Const General: alert; No acute distress Eyes Conjunctivae: conjunctivae normal Resp Auscultation: clear to auscultation bilaterally Cardio Rate: regular rate Rhythm: regular rhythm GI Inspection: Yes normal to inspection Extrem General: Yes normal to inspection and No edema Coding Level of Care Code Est Pt Level 4 (57126) Complex EM visit Add On G2211 Diagnoses History of sleeve gastrectomy Z90.3 Morbid obesity E66.01 Gastroesophageal reflux disease without esophagitis K21.9 Esophagitis presence: without esophagitis Mild intermittent asthma without complication J45.20 Asthma complication type: uncomplicated Asthma persistence: intermittent Asthma severity: mild Generalized anxiety disorder F41.1 Memory deficit R41.3 Assessment & Plan Assessment & Plan (1) History of sleeve gastrectomy: Comment: 10/2016 conversion from sleeve to bypass August [address]24 Dr. Tenorio Code(s): Z90.3 - Acquired absence of stomach [part of] Category: Surgical Plan: Patient continues to follow-up with bariatric surgeon with the recent conversion from sleeve to bypass August 2024. note 30 lbs weight loss from 07/2024 (2) Morbid obesity: Code(s): E66.01 - Morbid (severe) obesity due to excess calories Category: Medical Plan: Diet and exercise (3) GERD (gastroesophageal reflux disease): Code(s): K21.9 - Gastro-esophageal reflux disease without esophagitis Category: Medical Qualifiers: Esophagitis presence: without esophagitis Qualified Code(s): K21.9 - Gastro-esophageal reflux disease without esophagitis Plan: Avoid the foods that causes that usually spicy foods, tomato products, juices, coffee, soda and foods that your sensitive to. After eating do not lie down, allow 3-4 hours before in lie down. And keep the head of bed above 30 degrees to avoid the acid from going up. (4) Asthma: Code(s): J45.909 - Unspecified asthma, uncomplicated Category: Medical Qualifiers: Asthma complication type: uncomplicated Asthma persistence: intermittent Asthma severity: mild Qualified Code(s): J45.20 - Mild intermittent asthma, uncomplicated Plan: Continue with Symbicort and albuterol inhaler (5) Generalized anxiety disorder: Comment: Declined any referral for counseling December 2020 Code(s): F41.1 - Generalized anxiety disorder Category: Medical Plan: Stable (6) Memory deficit: Code(s): R41.3 - Other amnesia Category: Medical Plan History of Present Illness The patient is a 34-year-old male presenting with follow-up after a recent David-en-Y gastric bypass surgery and to address memory loss and head injury concerns. The patient has a history of obstructive sleep apnea, asthma, generalized anxiety disorder, and hypercholesterolemia. He underwent a sleeve gastrectomy in 2016 and recently had a conversion to a David-en-Y gastric bypass in August 2024. The patient experienced a head injury at home, resulting in memory loss and a brief loss of consciousness. He was transferred to [facility], where tests including blood work, X-ray, and CT scan were conducted, all of which returned normal results. The patient reports ongoing issues with memory, including repeating himself and difficulty recalling recent events. Health Maintenance Social History Review of Systems - Neurological: Reports memory loss and repeating himself. Denies other neurological deficits. - Gastrointestinal: Denies constipation or diarrhea. Physical Exam - Neurological: Patient able to follow commands, spell words forwards and back wards, recall objects, identify objects, and repeat phrases. - Neurological: Demonstrated ability to squeeze fingers and follow motor commands. Results - Labs: Blood work conducted at [facility], results normal. - Imaging: X-ray and CT scan conducted at [facility], results normal. Plan The patient will be referred to neurology for further evaluation of memory loss and potential neurological deficits. An EEG will be conducted to assess for any seizure activity. The patient is advised to continue following up with the bariatric surgeon and to maintain adherence to prescribed medications and supplements. Patient was informed and verbally consented to the use of an ambient scribe for clinic note documentation during this visit. Discussion Notes I discussed with the patient the importance of following up with neurology to address the memory loss and potential neurological issues. We also talked about the need for an EEG to rule out seizure activity. I emphasized the importance of continuing follow-up with the bariatric surgeon and maintaining adherence to medications and supplements. The patient was informed about the normal results of the tests conducted at [facility] and was advised to monitor for any new symptoms. Patient Instructions - Follow up with neurology as scheduled. - Continue taking prescribed medications and supplements daily. - Monitor for any new symptoms and report them promptly. Orders: Orders EEG ambulatory Today R41.3 - Other amnesia Referrals Neurology Referral R41.3 - Other amnesia
[2024-11-01 15:55] VITALS: BP 130/80; PULSE 63; TEMP 36.4; O2SAT 96; BMI 44.8
--- OUTSIDE RECORDS SUMMARY | 2024-11-01 16:27 | XMS_ITS | Clinical Summary ---
Author Organization [address] [facility] Address [address] [place] [address] Phone Care Team Providers Care Securities And Real Estate Director Name Role Phone Svetlana Hickman MD Primary Care Provider Allergies Active Allergy Reactions Criticality Noted Date Comments Morphine Palpitations Low 08/27/2021 Medications omeprazole (PriLOSEC) [address] capsule Take 1 capsule (20 mg total) by mouth 1 (one) time each day. 05/06/2024 Active Symbicort 80-4.5 mcg/actuation inhaler Inhale 2 puffs by mouth 2 (two) times a day. 05/11/2024 Active acetaminophen (TYLENOL) 500 mg tablet Take 2 tablets (1,000 mg total) by mouth every 8 (eight) hours. 180 tablet 08/08/2024 Active simethicone (MYLICON) 80 mg chewable tablet Chew 1 tablet (80 mg total) every 6 (six) hours if needed for flatulence. 120 tablet 08/08/2024 Active wheat dextrin 3 gram/3.5 gram powder in packet Take 1 packet by mouth 1 (one) time each day. 30 packet 08/08/2024 Active albuterol HFA (PROAIR HFA ; PROVENTIL HFA ; VENTOLIN HFA) 90 mcg/actuation inhaler Inhale 2 puffs by mouth every 6 (six) hours if needed for wheezing. Active oxyCODONE (ROXICODONE) 5 mg immediate release tabletIndicatio ns:Morbid obesity (CMS/HCC V24, CMS/HCC V28) Take 1 tablet (5 mg total) by mouth every 6 (six) hours if needed for severe pain. Max Daily Amount: 20 mg 12 tablet 08/25/2024 Active Active Problems Problem Noted Date Diagnosed Date S/P bariatric surgery 09/29/2024 Morbid obesity ([facility] V24, [facility] V28) 2024 Encounters Date Type Department Care Team Description 09/29/2024 10:30 AM EDT Telemedicine Bariatric Surgery - [address] [phone] S/P bariatric surgery (Primary Dx) 09/13/2024 9:45 AM EDT Office Visit Bariatric Surgery - [address] [phone] Jeannie Arthur PA Morbid obesity ([facility] V24, [facility] V28) (Primary Dx); Bariatric surgery status 08/24/2024 11:00 AM EDT - 08/24/2024 1:30 PM EDT Surgery [facility] Main OR [address] [place] [phone] Panfilo Tenorio MD [facility] CONVERSION OF SLEEVE TO BYPASS [49700 (CPT )] 08/24/2024 10:54 AM EDT Anesthesia Event [facility] OR [address] [place] [address] [phone] Jim Anderson MD McAdams, Megan, [facility] 08/24/2024 9:27 AM EDT - 08/25/2024 11:30 AM EDT Hospital Encounter [facility] Medical Surgical Unit [address] [place] [phone] Panfilo Tenorio MD Morbid obesity ([facility] V24, [facility] V28) (Primary Dx) Discharge Disposition: Home or Self Care 08/08/2024 1:45 PM EDT Consult Bariatric Surgery - [address] [phone] Jeannie Arthur PA Morbid obesity ([facility] V24, [facility] V28) (Primary Dx); History of sleeve gastrectomy 08/01/2024 10:36 AM EDT - 08/01/2024 11:59 PM EDT Hospital Encounter [facility] Xray [address] [place] [address] Discharge Disposition: Home or Self Care from Last 3 Months Surgical History Surgery Date Site/Laterality Comments OTHER SURGICAL HISTORY PROCEDURE: ---- OTHER ----; COMMENT: gastric sleeve TONSILLECTOMY ADENOIDECTOMY, BILATERAL MYRINGOTOMY AND TUBES PROCEDURE: IN TONSILLECTOMY & ADENOIDECTOMY <AGE 11 CHOLECYSTECTOMY PROCEDURE: IN LAPAROSCOPY SURG CHOLECYSTECTOMY BARIATRIC SURGERY CARPAL TUNNEL RELEASE ULNAR NERVE REPAIR Medical History Medical History Date Comments Asthma DX:Asthma GERD (gastroesophageal reflux disease) Sleep apnea Social History Tobacco Use Types Packs/Day Years Used Date Smoking Tobacco: Never Smokeless Tobacco: Never Alcohol Use Standard Drinks/Week Comments Yes 0 (1 standard drink = 0.6 oz pur e alcohol) Interpersonal Safety Answer Date Record ed Physical Abuse 08/24/2024 Verbal Abuse 08/24/2024 Sex and Gender Information Value Date Recorded Sex Assigned at Not on file Legal Sex Male 4:38 AM EST Gender Identity Not on file Sexual Orientation Not on file Obstetrics History Last Filed Vital Signs Vital Sign Reading Time Taken Comments Blood Pressure 114/67 09/13/2024 9:50 AM EDT Pulse 59 09/13/2024 9:50 AM EDT Temperature 36.6 C (97.8 F) 09/13/2024 9:50 AM EDT Respiratory Rate 20 08/25/2024 7:55 AM EDT Oxygen Saturation 98% 08/25/2024 8:56 AM EDT Inhaled Oxygen Concentration - - Weight 141 kg (311 lb) 09/29/2024 10:00 AM EDT Height 172.7 cm (5' 8 ) 09/13/2024 9:50 AM EDT Body Mass Index 47.29 09/13/2024 9:50 AM EDT Plan of Treatment Upcoming Encounters Date Type Department Care Team (Late st Contact Info) Description 11/08/2024 10:15 AM EDT Office Visit Bariatric Surgery - [place] [address] [facility] [address] [place] [phone] Jeannie Arthur, PA [address] [address] 12/16/2024 10:00 AM EDT Telemedicine Bariatric Surgery - [place] [address] [phone] Lisa Mckenna, RD [address] [phone] Health Maintenance Due Date Last Done Comments Pneumococcal Vaccine: Pediatrics (0 to 5 Years) and At-Risk Patients (6 to 49 Years) (2 of 2 - PCV) 03/08/2020 03/08/2019 Cholesterol Screening (Lipid Panel) 02/23/2022 HIV Screening 02/23/2022 Hepatitis C Screening 02/23/2022 Social Influencers of Health Screening 02/23/2022 COVID-19 Vaccine ( season) 2023 01/03/2021, 06/29/2020, 06/05/2020 Depression Screening 03/23/2024 Influenza Vaccine (#1) 2024 , 03/04/2019, 12/24/2016, Additional history exists DTaP,Tdap,and Td Vaccines (11 - Td or Tdap) 11/03/2030 11/03/2020, 12/29/2019, 07/25/2014, Additional history exists HIB Vaccines Completed 01/12/1991 IPV Vaccines Completed 12/27/1993, 04/24, 02/19/1990, Additional history exists MMR Vaccines Completed 12/27/1993, 01/12/1991 Hepatitis B Vaccines Completed 12/06/1997, 03/06/1997, 01/31/1997 Meningococcal ACWY Vaccine Completed 11/26/2006 HPV Vaccines Aged Out [...] on patient's age to complete this topic Procedures Procedure Name Priority Date/Time Associated Diagnosis Comments CBC WITH AUTO DIFFERENTIAL Routine 08/25/2024 5:42 AM EDT CBC AND DIFFERENTIAL Routine 08/25/2024 5:42 AM EDT BASIC METABOLIC PANEL Routine 08/25/2024 5:41 AM EDT MAGNESIUM Routine 08/25/2024 5:41 AM EDT POCT GLUCOSE BLOOD Routine 08/24/2024 8: 39 PM EDT TH AN ENDOTRACHEAL(NO CHARGE) Routine 08/24/2024 11:24 AM EDT IN LAP SURG GASTRIC REST PROC W GSTR BYPASS & NIKKI-EN-Y GASTROENTEROSTOMY 08/24/2024 10:57 AM EDT Morbid obesity (CMS/HCC V24, CMS/HCC V28) XR CHEST 2 VIEWS Routine 08/01/2024 10:5 9 AM EDT Obesity, Class III, BMI 40-49.9 (morbid obesity) ECG 12-LEAD Routine 08/01/2024 10:28 AM EDT Obesity, Class III, BMI 40-49.9 (morbid obesity) CBC WITH AUTO DIFFERENTIAL Routine 08/01/2024 10:17 AM EDT Obesity, Class III, BMI 40-49.9 (morbid obesity) BASIC METABOLIC PANEL Routine 08/01/2024 10:17 AM EDT Obesity, Class III, BMI 40-49.9 (morbid obesity) CBC AND DIFFERENTIAL Routine 08/01/2024 10:17 AM EDT Obesity, Class III, BMI 40-49.9 (morbid obesity) MAGNESIUM Routine 08/01/2024 10:17 AM EDT Obesity, Class III, BMI 40-49.9 (morbid obesity) PROTHROMBIN TIME WITH INR Routine 2024 10:17 AM EDT Obesity, Class III, BMI 40-49.9 (morbid obesity) TYPE AND SCREEN Routine 08/01/2024 10:17 AM EDT Obesity, Class III, BMI 40-49.9 (morbid obesity) from Last 3 Months Results * (ABNORMAL) CBC auto differential (08/25/2024 5:42 AM EDT) Only the most recent of2 resultswithin the time period is included. [facility] WBC 10.1 4.8 - 10.8 K/mcL LAB HEMETOLOGY METHOD 08/25/2024 6:35 AM [facility] RBC 5.30 4.50 - 5.50 M/mcL LAB HEMETOLOGY METHOD 08/25/2024 6:35 AM [facility] Hemoglobin 13.9 13.5 - 17.5 g/dL LAB HEMETOLOGY METHOD 08/25/2024 6:35 AM [facility] Hematocrit 43.0 42.0 - 54.0 % LAB HEMETOLOGY METHOD 08/25/2024 6:35 AM [facility] MCV 80.8 79.0 - 98.0 FL LAB HEMETOLOGY METHOD 08/25/2024 6:35 AM [facility] MCH 26.1(L) 27.0 - 32.0 pcg LAB HEMETOLOGY METHOD 08/25/2024 6:35 AM [facility] MCHC 32.3 32.0 - 37.0 g/dL LAB HEMETOLOGY METHOD 08/25/2024 6:35 AM [facility] RDW 13.8 11.0 - 15.0 % LAB HEMETOLOGY METHOD 08/25/2024 6:35 AM [facility] Platelets 346 130 - 400 K/mcL LAB HEMETOLOGY METHOD 08/25/2024 6:35 AM [facility] MPV 9.2 7.0 - 11.0 FL LAB HEMETOLOGY METHOD 08/25/2024 6:35 AM [facility] NRBC 0.0 <1.0 % LAB HEMETOLOGY METHOD 08/25/2024 6:35 AM [facility] NRBC Absolute 0.00 <0.10 K/mcL LAB HEMETOLOGY METHOD 08/25/2024 6:35 AM [facility] Neutrophils Relative 70.3 % LAB HEMETOLOGY METHOD 08/25/2024 6:35 AM [facility] Lymphocytes Relative 21.2 % LAB HEMETOLOGY METHOD 08/25/2024 6:35 AM [facility] Monocytes Relative 7.8 % LAB HEMETOLOGY METHOD 08/25/2024 6:35 AM [facility] Eosinophils Relative 0.2 % LAB HEMETOLOGY METHOD 08/25/2024 6:35 AM [facility] Basophils Relative 0.2 % LAB HEMETOLOGY METHOD 08/25/2024 6:35 AM [facility] Immature Granulocytes Relative 0.3 % LAB HEMETOLOGY METHOD 08/25/2024 6:35 AM [facility] Neutrophils Absolute 7.11(H) 1.50 - 7.00 K/mcL LAB HEMETOLOGY METHOD 08/25/2024 6:35 AM [facility] Lymphocytes Absolute 2.15 1.00 - 5.00 K/mcL LAB HEMETOLOGY METHOD 08/25/2024 6:35 AM [facility] Monocytes Absolute 0.79 0.20 - 1.00 K/mcL LAB HEMETOLOGY METHOD 08/25/2024 6:35 AM [facility] Eosinophils Absolute 0.02 0.00 - 0.50 K/mcL LAB HEMETOLOGY METHOD 08/25/2024 6:35 AM EDT [facility] Basophils Absolute 0.02 0.00 - 0.20 K/[facility] LAB HEMETOLOGY METHOD 08/25/2024 6:35 AM EDT [facility] Immature Granulocytes Absolute 0.03 0.00 - 0.03 K/[facility] LAB HEMETOLOGY METHOD 08/25/2024 6:35 AM EDT [facility] Blood Venous blood specimen / Unknown Venipuncture / Unknown 08/25/2024 5:42 AM EDT 08/25/2024 6:15 AM EDT Jeannie DREW LAB BLOOD ORDERABLES Final R esult Performing Organization Address [facility] Co de Phone Number [facility] [address] [place] [address], [place] [phone] * Magnesium (08/25/2024 5:41 AM EDT) Only the most recent of2 resultswithin the time period is included. Magnesium 2.3 1.9 - 2.6 mg/dL LAB CHEMISTRY METHOD 08/25/2024 6:49 AM EDT [facility] Blood Venous blood specimen / Unknown Venipuncture / Unknown 08/25/2024 5:41 AM EDT 08/25/2024 6:15 AM EDT Jeannie DREW LAB BLOOD ORDERABLES Final R esult Performing Organization Address City/[facility]/ZIP Co de Phone Number [facility] [address] [place] [address], [place] [phone] * Basic metabolic panel (08/25/2024 5:41 AM EDT) Only the most recent of2 resultswithin the time period is included. Sodium 135 133 - 145 mmol/L LAB CHEMISTRY METHOD 08/25/2024 6:49 AM [facility] Potassium 3.9 3.5 - 5.5 mmol/L LAB CHEMISTRY METHOD 08/25/2024 6:49 AM [facility] Chloride 102 96 - 110 mmol/L LAB CHEMISTRY METHOD 08/25/2024 6:49 AM [facility] CO2 27 21 - 32 mmol/L LAB CHEMISTRY METHOD 08/25/2024 6:49 AM [facility] Anion Gap 6 3 - 11 LAB CHEMISTRY METHOD 08/25/2024 6:49 AM [facility] Glucose 96 70 - 100 mg/dL LAB CHEMISTRY METHOD 08/25/2024 6:49 AM [facility] BUN 16 5 - 25 mg/dL LAB CHEMISTRY METHOD 08/25/2024 6:49 AM [facility] Creatinine 0.76 0.70 - 1.30 mg/dL LAB CHEMISTRY METHOD 08/25/2024 6:49 AM [facility] eGFR 120 >=60 mL/min/1. 73m2 LAB CHEMISTRY METHOD 08/25/2024 6:49 AM [facility] Comment:Calculation based on the Chronic Kidney Disease Epidemiology Collaboration (CKD-EPI) equation refit without adjustment for race. BUN/Creatinine Ratio 21.1 LAB CHEMISTRY METHOD 08/25/2024 6:49 AM [facility] Calcium 9.6 8.5 - 10.5 mg/dL LAB CHEMISTRY METHOD 08/25/2024 6:49 AM [facility] Blood Venous blood specimen / Unknown Venipuncture / Unknown 08/25/2024 5:41 AM EDT 08/25/2024 6:15 AM EDT us Jeannie DREW LAB BLOOD ORDERABLES Final R esult [facility] [address] [place] [address], [place] [phone] * (ABNORMAL) POCT Glucose, blood (08/24/2024 8:39 PM EDT) Glucose POCT 117(H) 70 - 100 mg/dL 08/24/2024 8:41 PM EDT [facility] Blood Capillary blood specimen / Unknown 08/24/2024 8:39 PM EDT 08/24/2024 8:42 PM EDT us Panfilo Tenorio MD LAB POINT OF CARE TE ST DOCKED DEVICE UNSOLICITED RESULTS Final Result [facility] [address] [place] [address], [place] [phone] * TH AN ENDOTRACHEAL(NO CHARGE) (08/24/2024 11:24 AM EDT) Narrative Krupa Aldridge CRNA - 08/24/2024 11:24 AM EDT Krupa Aldridge CRNA 08/24/2024 11:26 AM General Information and Staff Patient location during procedure: OR Anesthesiologist: Jim Anderson MD Resident/P[employer]OT PLANT RESEARCH TECHNICIAN: Krupa Aldridge CRNA Performed by: Krupa Aldridge CRNA Authorized by: Jim Anderson MD Intubation Airway not difficult Urgency: elective Final Airway Details Successful airway: ETT Cuffed: yes Successful intubation technique: video laryngoscopy Endotracheal tube insertion site: oral Blade: Krysta Blade size: #3 ETT size (mm): 7.5 Cormack-Lehane Classification: grade I - full view of glottis Placement verified by: chest auscultation and capnometry Cuff volume (mL): 8 Measured from: gums ETT to gums (cm): 22 Number of attempts at approach: 1Final airway type: endotracheal airway Indications and Patient Condition Indications for airway management: anesthesia Spontaneous Ventilation: absent Sedation level: Yes Preoxygenated: yes Soft Tissue Damage: No Dentition Unchanged: Yes Patient position: neutral MILS maintained throughout Mask difficulty assessment: 1 - vent by mask us Jim Anderson MD ANESTHESIA ORDERABLES Final Re sult * XR Chest 2 Views (08/01/2024 10:59 AM EDT) Anatomical Region Laterality Modality Body Radiographic Ela ging 08/01/2024 11:0 5 AM EDT Impressions 08/01/2024 11:07 AM EDT Suboptimal depth of inspiration. Otherwise, normal examination. Code 59679 -------- FINAL REPORT -------- Dictated By: Morgan Romero Dictated Date: 08/01/2024 11:05 ET Assigned Physician: Morgan Romero Reviewed and Electronically Signed By: Morgan Romero Signed Date: 08/01/2024 11:07 ET Workstation ID: [id number] Transcribed By: Self Edit Transcribed Date: 08/01/2024 11:05 ET Narrative 08/01/2024 11:07 AM EDT HISTORY: The patient is a 34-year-old male undergoing evaluation prior to bariatric surgery. The patient has a history of asthma. FINDINGS: PA and lateral radiographs of the chest, without previous for comparison, demonstrate somewhat limited depth inspiration. The bony structures are of normal appearance. The cardiac and mediastinal contours are within normal limits. The lungs and costophrenic angles are clear. Procedure Note Morgan Romero MD - 08/01/2024 HISTORY: The patient is a 34-year-old male undergoing evaluation prior tobariatric surgery. The patient has a history of asthma. FINDINGS: PA and lateral radiographs of the chest, without previous forcomparison, demonstrate somewhat limited depth inspiration. The bonystructures are of normal appearance. The cardiac and mediastinal contoursare within normal limits. The lungs and costophrenic angles are clear. IMPRESSION: Suboptimal depth of inspiration. Otherwise, normal examination. Code 28662 -------- FINAL REPORT -------- Dictated By: Morgan Romero Dictated Date: 08/01/2024 11:05 ET Assigned Physician: Morgan Romero Reviewed and Electronically Signed By: Morgan Romero Signed Date: 08/01/2024 11:07 ET Workstation ID: [id number] Transcribed By: Self Edit Transcribed Date: 08/01/2024 11:05 ET us Jeannie DREW IMG XR PROCEDURES Final Resu lt * ECG 12 lead (08/01/2024 10:28 AM EDT) [facility] Ventricular Rate ECG 61 BPM GEMUSE Atrial Rate 61 BPM GEMUSE P-R Interval 154 ms GEMUSE QRS Duration 82 ms GEMUSE Q-T Interval 376 ms GEMUSE QTc 378 ms GEMUSE P Wave Gustine 36 degrees GEMUSE R Gustine -7 degrees GEMUSE T Gustine 1 degrees GEMUSE ECG Interpretation Normal sinus rhythm Normal ECG No previous ECGs available Confirmed by Gwendolyn JIM JOHN ([id number]) on 08/01/2024 7:41:41 PM GEMUSE 08/01/2024 10:2 8 AM EDT 08/01/2024 7:41 PM EDT us Jeannie DREW ECG ORDERABLES Final Result Performing Organization Address City/[facility] Co de Phone Number GEMUSE * Prothrombin time with INR (08/01/2024 10:17 AM EDT) [facility] Protime 11.7 10.6 - 13.9 sec LAB COAGULATION METHOD 08/01/2024 10:46 AM EDT [facility] INR 0.9 LAB COAGULATION METHOD 08/01/2024 10:46 AM EDT [facility] Blood Venous blood specimen / Unknown Venipuncture / Unknown 08/01/2024 10:17 AM EDT 08/01/2024 10:36 AM EDT us Jeannie DREW LAB BLOOD ORDERABLES Final R esult Performing Organization Address City/[facility]/ZIP Co de Phone Number [facility] [address] [place] [address], [place] [phone] * Type and screen (08/01/2024 10:17 AM EDT) [facility] ABO Group A 08/01/2024 1:36 PM EDT [facility] Rh Type Positive 08/01/2024 1:36 PM EDT [facility] Antibody Screen Negative 08/01/2024 1:36 PM EDT [facility] Blood Venous blood specimen / Unknown Venipuncture / Unknown 08/01/2024 10:17 AM EDT 08/01/2024 10:35 AM EDT us Jeannie DREW LAB BLOOD BANK TEST ORDERABL ES Final Result [facility] [address] [place] [address], from Last 3 Months Insurance [facility] [employer] Advance Directives Documents on File Type Date Recorded Patient Show Card Letterer Expl anation Advance Directives and Livin g Will 08/25/2024 11:50 AM PROXY * Full Code - Default (Latest Code Status on File) Date Activated Date Inactivated Comments 08/24/2024 9:36 AM 08/25/2024 1:36 PM This is order is used when code status has not been discussed with the patient, or code status is otherwise unknown/unconfirmed To update the patient's code status, place a code status order. Do not modify or discontinue any currently active code status orders. Care Teams Securities And Real Estate Director Relationship Specialty Start Date End Date Svetlana Hickman MD [address] [place] [address] [address] [facility] [place] [id number] PCP - General Internal Medicine 06/20/24
--- OUTSIDE RECORDS SUMMARY | 2024-11-01 16:27 | XMS_ITS | Encounter Summary ---
Author Organization [facility] Address [address] [place] [phone] Phone Care Team Providers Care Health Information Administrator Name Role Phone Morgan Arvizu MD Primary Care Provider Unavailabl e Encounter Details Date Type Department Care Team (Late st Contact Info) Description 11/06/2016 Conversion Encounter [facility] - [address] [address] Social History Tobacco Use Types Packs/Day Years [...] on filedocumented in this encounter Care Teams Health Information Administrator Relationship Specialty Start Date End Date Morgan Arvizu MD PCP - General 10/31/16 documented as of this encounter
== END 2024-11-01 16:34 | disposition home or self-care (01) ==
LOC: HO.HMCH 15:47
PROVIDERS: PCP Internal Medicine; Visit Provider Internal Medicine
DX: K21.9 Gastro-esophageal reflux disease without esophagitis (principal); Z90.3 Acquired absence of stomach [part of]; E66.01 Morbid (severe) obesity due to excess calories; Z68.41 Body mass index [BMI] 40.0-44.9, adult; J45.20 Mild intermittent asthma, uncomplicated; F41.1 Generalized anxiety disorder; R41.3 Other amnesia

== ENCOUNTER → 2024-11-01 15:46 | Outpatient (BNVA) | payer OTHER, SELFPAY | PROVIDERS: PCP Internal Medicine; Visit Provider Internal Medicine | DX: E66.01 Morbid (severe) obesity due to excess calories (principal); K21.9 Gastro-esophageal reflux disease without esophagitis; J45.20 Mild intermittent asthma, uncomplicated; F41.1 Generalized anxiety disorder; R41.3 Other amnesia; G47.33 Obstructive sleep apnea (adult) (pediatric); E78.00 Pure hypercholesterolemia, unspecified; Z90.3 Acquired absence of stomach [part of]; Z68.41 Body mass index [BMI] 40.0-44.9, adult | CPT/HCPCS: 99212 ==

== ENCOUNTER 2024-11-29 14:50 | Outpatient (AMB) | payer OTHER, SELFPAY ==
--- NOTE | 2024-11-29 15:20 | A.OFFVIS_ITS ---
Vital Signs 11/29/24 15:25 Height 5 ft 8 in Weight 293 lb BMI 44.5 Intake Visit Reasons: OV-LT Cubital/CTR 01/11/24 AR-F/U Right elbow pain Intake Note: Morris is a 34 year old male who presents today as a left Cubital/CTR 01/11/24 AR-F/U Right elbow pain. At today's visit he states that the left elbow is in constant pain, feels like it's getting stuck when he extends . He states that his ROM is limited due to the pain and discomfort. He added that he does take NSAIDs to relieve the pain but only gives mild relief. He states that the pain does not radiate down to the hand like it did in the past. Allergies morphine (Morphine) Allergy (Unknown, Verified 11/29/24 15:25) PALPITATION, tachycardia, tachycardia HPI HPI OV-LT Cubital/CTR 01/11/24 AR-F/U Right elbow pain: Details: Morris is a 34 year old male who presents today as a left Cubital/CTR 01/11/24 AR-F/U Right elbow pain. At today's visit he states that the left elbow is in constant pain, feels like it's getting stuck when he extends . He states that his ROM is limited due to the pain and discomfort. He added that he does take NSAIDs to relieve the pain but only gives mild relief. He states that the pain does not radiate down to the hand like it did in the past. [facility] Medical History (Updated 11/29/24 @ 15:50 by RAJENDRA Quezada) Hand pain Numbness in both hands Decreased hearing of left ear Fatty liver Hypertriglyceridemia GERD (gastroesophageal reflux disease) Obstructive sleep apnea History of gastrectomy Asthma Surgical History (Updated 11/01/24 @ 16:19 by Svetlana Hickman MD) History of gastric bypass History of tonsillectomy History of sleeve gastrectomy Hx laparoscopic cholecystectomy Family History Father Hypertension High cholesterol Mother Rheumatoid arthritis Maternal Grandmother Breast cancer Paternal Grandmother Breast cancer Pancreatic cancer Myocardial infarct Paternal Grandfather Colon cancer Myocardial infarct Son Mental health disorder Social History Housing: House Alcohol intake: current Comment: once a year bottle Patient Tobacco Use Status: Never used Tobacco Tobacco use type: Cigarette e-Cigarette/Vaping Use: Never Used Second Hand Smoke Exposure: No service: No Current occupational status: employed 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 Neuro: Normal sensation of the tips of all digits of the left hand at this time Vascular: Cap refill brisk Pain: Patient reports no tenderness to palpation of both incision sites on the left wrist and elbow Iglxv-wh-[id number] testing painless ROM: Patient is able to make a closed fist and extend0 all digits of the left hand fully and without difficulty Patient is able to flex the elbow to approximately 150 degrees, can extend to 0 degrees, but reports a feeling of ?catching? when attempting to flex after this Skin: Well Approximated and well healed incision sites on the volar aspect of the left wrist and the medial epicondyle of the left elbow General: No ecchymosis, erythema, or evidence of infection. Psych: Appears grossly normal Affect normal Attitude cooperative Results Reviewed Results Reviewed: X-rays obtained in the office today and independently reviewed by me, Jt Christensen PA-C, demonstrate [id number] osteoarthritic changes of the elbow joint. Assessment & Plan Assessment & Plan (1) Osteoarthritis of left elbow: Code(s): M19.022 - Primary osteoarthritis, left elbow Category: Medical Plan 1. Osteoarthritis of left elbow Patient is educated about this condition Patient is educated about the typical treatment course At this time, patient is referred to occupational therapy for range of motion and strengthening of the left elbow Patient is educated that this is an hope of restoring normal function and range of motion to the left elbow without need for any further intervention Patient is educated that if therapy is not helpful for him, he can call us for reassessment and discussion of any further treatment options that might be indicated Patient understands this in his amenable to this plan Follow-up as needed with any acute concerns Orders: Orders XR elbow LT min 3V 11/29/24 M25.522 - Pain in left elbow OT Evaluation and Treatment 11/29/24 M19.022 - Primary osteoarthritis, left elbow Coding Level of Care Code Est Pt Level 3 (91782) Diagnoses Osteoarthritis of left elbow M19.022
[2024-11-29 15:25] VITALS: BMI 44.5
--- OUTSIDE RECORDS SUMMARY | 2024-11-29 17:18 | XMS_ITS | Clinical Summary ---
Author Organization [facility] Address [address] [place] [address] Phone Care Team Providers Care Chart Changer Name Role Phone Svetlana Hickman MD Primary Care Provider [phone] Allergies Active Allergy Reactions Criticality Noted Date [...] Amount: 20 mg 12 tablet 08/25/2024 Active ferrous sulfate 325 mg (65 mg iron) EC tabletIndicatio ns:S/P bariatric surgery Take 1 tablet (325 mg total) by mouth 1 (one) time each day. Do not crush, chew, or split. 30 each 11/12/2024 Active ergocalciferol (VITAMIN D-2) 1,250 mcg (50,000 unit) capsuleIndicati ons:Vitamin D deficiency Take 1 capsule (50,000 Units total) by mouth 1 (one) time per week for 8 doses. 8 each 11/12/2024 Active Active Problems Problem Noted Date Diagnosed Date S/P bariatric surgery 09/29/2024 Morbid obesity ([facility] V24, [facility] V28) 2024 Encounters Date Type Department Care Team Description 11/08/2024 10:15 AM EDT Office Visit Bariatric Surgery - [address] [phone] Jeannie Arthur PA Obesity, Class III, BMI 40-49.9 (morbid obesity) (Primary Dx); Bariatric surgery status 09/29/2024 10:30 AM EDT Telemedicine Bariatric Surgery - [address] [phone] S/P bariatric surgery (Primary Dx) 09/13/2024 9:45 AM EDT Office Visit Bariatric Surgery - [address] [phone] Jeannie Arthur PA Morbid obesity ([facility] V24, [facility] V28) (Primary Dx); Bariatric surgery status from Last 3 Months Surgical History Surgery Date Site/Laterality Comments OTHER SURGICAL HISTORY PROCEDURE: ---- OTHER ----; COMMENT: gastric sleeve TONSILLECTOMY ADENOIDECTOMY, BILATERAL MYRINGOTOMY AND TUBES PROCEDURE: [place] TONSILLECTOMY & ADENOIDECTOMY <AGE 11 CHOLECYSTECTOMY PROCEDURE: [place] LAPAROSCOPY SURG CHOLECYSTECTOMY BARIATRIC SURGERY CARPAL TUNNEL [...] Sign Reading Time Taken Comments Blood Pressure 125/78 11/08/2024 10:12 AM EDT Pulse 70 11/08/2024 10:12 AM EDT Temperature 36.6 C (97.8 F) 09/13/2024 9:50 AM EDT Respiratory Rate 20 08/25/2024 7:55 AM EDT Oxygen Saturation 98% 08/25/2024 8:56 AM EDT Inhaled Oxygen Concentration - - Weight 135 kg (298 lb 6.4 oz) 11/08/2024 10:12 A M EDT Height 172.7 cm (5' 8 ) 11/08/2024 10:12 AM EDT Body Mass Index 45.37 11/08/2024 10:12 AM EDT Plan of Treatment Upcoming Encounters Date Type Department Care Team (Late st Contact Info) Description 12/16/2024 10:00 AM EDT Telemedicine Bariatric Surgery [facility] [address] [phone] Lisa Mkcenna, RD [address] [phone] 02/14/2025 1:45 PM EST Office Visit Bariatric Surgery [facility] [address] [phone] Jeannie Arthur PA [address] [place] [phone] Health Maintenance Due Date Last Done Comments Pneumococcal Vaccine: Pediatrics (0 to 5 Years) and At-Risk Patients (6 to 49 Years) (2 of 2 - PCV) 03/08/2020 03/08/2019, 11/08/2016 HIV Screening 02/23/2022 Hepatitis C Screening 02/23/2022 Social Influencers of Health Screening 02/23/2022 Depression Screening 03/23/2024 COVID-19 Vaccine ( season) 2024 01/03/2021, 06/29/2020, 06/05/2020 Influenza Vaccine (#1) 2024 4, 03/04/2019, 12/24/2016, Additional history exists Cholesterol Screening (Lipid Panel) 11/08/2029 11/08/2024 DTaP,Tdap,and Td Vaccines (11 - Td or [...] Procedure Name Priority Date/Time Associated Diagnosis Comments BILIRUBIN DUPLICATE PROCEDURE TO ORDER Routine 11/08/2024 10:32 AM EDT Class 3 severe obesity due to excess calories with body mass index (BMI) of 45.0 to 49.9 in adult, unspecified whether serious comorbidity present (CMS/HCC V24, CMS/HCC V28) LIPID PANEL WITH REFLEX TO DIRECT LDL Routine 11/08/2024 10:32 AM EDT Class 3 severe obesity due to excess calories with body mass index (BMI) of 45.0 to 49.9 in adult, unspecified whether serious comorbidity present (CMS/HCC V24, CMS/[facility] V28) THYROID STIMULATING HORMONE Routine 11/08/2024 10:32 AM EDT Class 3 severe obesity due to excess calories with body mass index (BMI) of 45.0 to 49.9 in adult, unspecified whether serious comorbidity present (CMS/HCC V24, CMS/HCC V28) HEMOGLOBIN A1C Routine 11/08/2024 10:32 AM EDT Class 3 severe obesity due to excess calories with body mass index (BMI) of 45.0 to 49.9 in adult, unspecified whether serious comorbidity present (CMS/HCC V24, CMS/[facility] V28) COMPREHENSIVE METABOLIC PANEL Routine 11/08/2024 10:32 AM EDT Obesity, Class III, BMI 40-49.9 (morbid obesity) COPPER, SERUM Routine 11/08/2024 10:32 AM EDT Obesity, Class III, BMI 40-49.9 (morbid obesity) FOLATE Routine 11/08/2024 10:32 AM EDT Obesity, Class III, BMI 40-49.9 (morbid obesity) IRON AND TIBC Routine 11/08/2024 10:32 AM EDT Obesity, Class III, BMI 40-49.9 (morbid obesity) ZINC Routine 11/08/2024 10:32 AM EDT Obesity, Class III, BMI 40-49.9 (morbid obesity) VITAMIN D 25 HYDROXY Routine 11/08/2024 10:32 AM EDT Obesity, Class III, BMI 40-49.9 (morbid obesity) VITAMIN B6 Routine 11/08/2024 10:32 AM EDT Obesity, Class III, BMI 40-49.9 (morbid obesity) VITAMIN B12 Routine 11/08/2024 10:32 AM EDT Obesity, Class III, BMI 40-49.9 (morbid obesity) VITAMIN B1 Routine 11/08/2024 10:32 AM EDT Obesity, Class III, BMI 40-49.9 (morbid obesity) VITAMIN A Routine 11/08/2024 10:32 AM EDT Obesity, Class III, BMI 40-49.9 (morbid obesity) SELENIUM SERUM Routine 11/08/2024 10:32 AM EDT Obesity, Class III, BMI 40-49.9 (morbid obesity) from Last 3 Months Results * Bilirubin duplicate procedure to order (11/08/2024 10:32 AM EDT) Total Bilirubin 0.4 0.0 - 1.4 mg/dL LAB CHEMISTRY METHOD 11/08/2024 3:02 PM EDT [facility] Bilirubin, Direct 0.1 0.0 - 0.3 mg/dL LAB CHEMISTRY METHOD 11/08/2024 3:02 PM EDT [facility] Bilirubin, Indirect 0.3 0.0 - 1.1 mg/dL LAB CHEMISTRY METHOD 11/08/2024 3:02 PM EDT [facility] Blood Venous blood specimen / Unknown Venipuncture / Unknown 11/08/2024 10:32 AM EDT 11/08/2024 10:32 AM EDT us Panfilo Tenorio MD LAB BLOOD ORDERABLES Final R esult [facility] [address] [place] [address], * (ABNORMAL) Lipid panel with reflex to direct LDL (11/08/2024 10:32 AM EDT) Cholesterol 111 0 - 200 mg/dL LAB CHEMISTRY METHOD 11/08/2024 2:37 PM EDT [facility] Triglycerides 132 0 - 150 mg/dL LAB CHEMISTRY METHOD 11/08/2024 2:37 PM EDT [facility] HDL 33(L) >=40 mg/dL LAB CHEMISTRY METHOD 11/08/2024 2:37 PM EDT [facility] LDL Calculated 52 0 - 100 mg/dL LAB CHEMISTRY METHOD 11/08/2024 2:37 PM EDT [facility] Comment:Estimated LDL Calcul ated using equation: Total cholesterol - HDL cholesterol - (Triglycerides/5) VLDL Cholesterol Ronnie 26.4 mg/dL LAB CHEMISTRY METHOD 11/08/2024 2:37 PM EDT [facility] Non HDL Chol. (LDL+VLDL) 78 <145 mg/dL LAB CHEMISTRY METHOD 11/08/2024 2:37 PM EDT [facility] Chol/HDL Ratio 3.4 0.0 - 4.4 LAB CHEMISTRY METHOD 11/08/2024 2:37 PM EDT [facility] Blood Venous blood specimen / Unknown Venipuncture / Unknown 11/08/2024 10:32 AM EDT 11/08/2024 10:32 AM EDT us Panfilo Tenorio MD LAB BLOOD ORDERABLES Final R esult [facility] [address] [place] [address], * (ABNORMAL) Iron and TIBC (11/08/2024 10:32 AM EDT) Iron 48(L) 50 - 160 mcg/dL LAB CHEMISTRY METHOD 11/08/2024 3:02 PM EDT [facility] TIBC 364 250 - 450 mcg/dL LAB CHEMISTRY METHOD 11/08/2024 3:02 PM EDT [facility] Iron Saturation 13(L) 20 - 50 % LAB CHEMISTRY METHOD 11/08/2024 3:02 PM EDT [facility] Blood Venous blood specimen / Unknown Venipuncture / Unknown 11/08/2024 10:32 AM EDT 11/08/2024 10:32 AM EDT Jeannie DREW LAB BLOOD ORDERABLES Final R esult Performing Organization Address [facility]/ZIP Co de Phone Number [facility] [address] [place] [address], [place] [phone] * Copper, serum (11/08/2024 10:32 AM EDT) Copper 1229 665 - 1480 ug/L 11/14/2024 7:44 AM EDT [facility] Comment: Elevated results may be due to sample collected in a non-certified trace element-free tube. This test was developed and the performance characteristics determined by [facility] [employer] It has not been cleared or approved by the FDA. The laboratory is regulated under CLIA as qualified to perform high-complexity testing. This test is used for patient testing purposes. It should not be regarded as investigational or for research. Test performed at [facility], [address] , [place] [address] Jessica Smith MD, PhD - [employer] Blood Venous blood specimen / Unknown Venipuncture / Unknown 11/08/2024 10:32 AM EDT 11/08/2024 10:32 AM EDT Jeannie DREW LAB BLOOD ORDERABLES Final R esult Performing Organization Address City/[facility]/ZIP Co de Phone Number [facility] [address] [place] [address] * Zinc (11/08/2024 10:32 AM EDT) Zinc 67 60 - 130 ug/dL 11/11/2024 9:10 AM EDT [facility] Comment: Elevated results may be due to sample collected in a non-certified trace element-free tube. This test was developed and the performance characteristics determined by [facility]. It has not been cleared or approved by the FDA. The laboratory is regulated under CLIA as qualified to perform high-complexity testing. This test is used for patient testing purposes. It should not be regarded as investigational or for research. Test performed at [facility], [address] [place] [address] Jessica Smith MD, PhD - [employer] Work[employer] Blood Venous blood specimen / Unknown Venipuncture / Unknown 11/08/2024 10:32 AM EDT 11/08/2024 10:32 AM EDT Jeannie DREW LAB BLOOD ORDERABLES Final R esult Performing Organization Address [facility] Co de Phone Number [facility] [address] [place] [address] * Vitamin A (11/08/2024 10:32 AM EDT) Vitamin A 38 38 - 106 ug/dL 11/14/2024 6:10 AM EDT [facility] Comment: This test was developed and the performance characteristics determined by [facility]. It has not been cleared or approved by the FDA. The laboratory is regulated under CLIA as qualified to perform high-complexity testing. This test is used for patient testing purposes. It should not be regarded as investigational or for research. Test performed at [facility], [address] [place] [address] Jessica Smith MD, PhD - [employer] Blood Venous blood specimen / Unknown Venipuncture / Unknown 11/08/2024 10:32 AM EDT 11/08/2024 10:32 AM EDT Jeannie DREW LAB BLOOD ORDERABLES Final R esult Performing Organization Address [facility] Co de Phone Number [facility] [address] [place] [address] * Selenium serum (11/08/2024 10:32 AM EDT) Selenium 133 63 - 160 mcg/L 11/12/2024 11:13 PM EDT [facility] Comment: This test was developed and its analytical performance characteristics have been determined by [facility] [place] [place]. It has not been cleared or approved by the U.S. Food and Drug Administration. This assay has been validated pursuant to the CLIA regulations and is used for clinical purposes. Test Performed by [facility], [address] [place] [address] Jan Buck M.D., Ph.D., Director of Laboratories , CLIA [id number] Blood Venous blood specimen / Unknown Venipuncture / Unknown 11/08/2024 10:32 AM EDT 11/08/2024 10:32 AM EDT Jeanine DREW LAB BLOOD ORDERABLES Final R [facility] Performing Organization Address City/[facility]/ZIP Co de Phone Number [facility] [address] [place] [address] * (ABNORMAL) Vitamin D 25 hydroxy (11/08/2024 10:32 AM EDT) [facility] Vit D, 25-Hydroxy 27.6(L) 30.0 - 80.0 ng/mL LAB CHEMISTRY METHOD 11/08/2024 3:40 PM EDT [facility] Blood Venous blood specimen / Unknown Venipuncture / Unknown 11/08/2024 10:32 AM EDT 11/08/2024 10:32 AM EDT Jeannie DREW LAB BLOOD ORDERABLES Final R esult [facility] [address] [place] [address], [place] [phone] * Thyroid stimulating hormone (11/08/2024 10:32 AM EDT) [facility] TSH 1.26 0.40 - 4.00 mcIU/mL LAB CHEMISTRY METHOD 11/08/2024 3:40 PM EDT [facility] Blood Venous blood specimen / Unknown Venipuncture / Unknown 11/08/2024 10:32 AM EDT 11/08/2024 10:32 AM EDT Panfilo Tenorio MD LAB BLOOD ORDERABLES Final R esult [facility] [address] [place] [address], * Vitamin B1 (11/08/2024 10:32 AM EDT) Vitamin B1 Whole Blood 58 38 - 122 ug/L 11/14/2024 6:29 AM EDT [facility] Comment: This test was developed and the performance characteristics determined by [facility]. It has not been cleared or approved by the FDA. The laboratory is regulated under CLIA as qualified to perform high-complexity testing. This test is used for patient testing purposes. It should not be regarded as investigational or for research. Test performed at [facility], [address] , [place] [address] Jessica Smith MD, PhD - [employer] Blood Venous blood specimen / Unknown Venipuncture / Unknown 11/08/2024 10:32 AM EDT 11/08/2024 10:32 AM EDT us Jeannie DREW LAB BLOOD ORDERABLES Final R esult [facility] [address] [place] [address] * Vitamin B6 (11/08/2024 10:32 AM EDT) Vitamin B6 (Pyridoxine) Level 29 5 - 50 ug/L 11/14/2024 9:19 AM EDT [facility] Comment: This test was developed and the performance characteristics determined by [facility]. It has not been cleared or approved by the FDA. The laboratory is regulated under CLIA as qualified to perform high-complexity testing. This test is used for patient testing purposes. It should not be regarded as investigational or for research. Test performed at [facility], [address] , [place] [address] Jessica Smith MD, PhD - [employer] Blood Venous blood specimen / Unknown Venipuncture / Unknown 11/08/2024 10:32 AM EDT 11/08/2024 10:32 AM EDT Jeannie DREW LAB BLOOD ORDERABLES Final R esult [facility] [address] [place] [address] * Hemoglobin A1c (11/08/2024 10:32 AM EDT) Pathologist [facility] Hemoglobin A1C 5.3 <6.5 % LAB CHEMISTRY METHOD 11/08/2024 9:22 PM EDT [facility] Mean Bld Glu Estim. 105 mg/dL LAB CHEMISTRY METHOD 11/08/2024 9:22 PM EDT [facility] Blood Venous blood specimen / Unknown Venipuncture / Unknown 11/08/2024 10:32 AM EDT 11/08/2024 10:32 AM EDT Panfilo Tenorio MD LAB BLOOD ORDERABLES Final R esult [facility] [address] [place] [address], * Folate (11/08/2024 10:32 AM EDT) Pathologist [facility] Folate 11.7 2.8 - 17.0 ng/ml LAB CHEMISTRY METHOD 11/08/2024 3:02 PM EDT [facility] Blood Venous blood specimen / Unknown Venipuncture / Unknown 11/08/2024 10:32 AM EDT 11/08/2024 10:32 AM EDT Jeannie DREW LAB BLOOD ORDERABLES Final R esult Performing Organization Address [facility]/ZIP Co de Phone Number [facility] [address] [place] [address], [place] [phone] * (ABNORMAL) Vitamin B12 (11/08/2024 10:32 AM EDT) [facility] Vitamin B-12 951(H) 250 - 900 pcg/mL LAB CHEMISTRY METHOD 11/08/2024 3:02 PM EDT [facility] Blood Venous blood specimen / Unknown Venipuncture / Unknown 11/08/2024 10:32 AM EDT 11/08/2024 10:32 AM EDT Jeannie DREW LAB BLOOD ORDERABLES Final R esult Performing Organization Address City/[facility]/ZIP Co de Phone Number [facility] [address] [place] [address], [place] [phone] * (ABNORMAL) Comprehensive metabolic panel (11/08/2024 10:32 AM EDT) [facility] Sodium 140 133 - 145 mmol/L LAB CHEMISTRY METHOD 11/08/2024 3:02 PM EDT [facility] Potassium 3.8 3.5 - 5.5 mmol/L LAB CHEMISTRY METHOD 11/08/2024 3:02 PM T [facility] Chloride 108 96 - 110 mmol/L LAB CHEMISTRY METHOD 11/08/2024 3:02 PM EDT [facility] CO2 28 21 - 32 mmol/L LAB CHEMISTRY METHOD 11/08/2024 3:02 PM T [facility] Anion Gap 4 3 - 11 LAB CHEMISTRY METHOD 11/08/2024 3:02 PM EDT [facility] Glucose 81 70 - 100 mg/dL LAB CHEMISTRY METHOD 11/08/2024 3:02 PM [facility] BUN 14 5 - 25 mg/dL LAB CHEMISTRY METHOD 11/08/2024 3:02 PM [facility] Creatinine 0.59(L) 0.70 - 1.30 mg/dL LAB CHEMISTRY METHOD 11/08/2024 3:02 PM [facility] eGFR 130 >=60 mL/min/1. 73m2 LAB CHEMISTRY METHOD 11/08/2024 3:02 PM [facility] Comment:Calculation based on the Chronic Kidney Disease Epidemiology Collaboration (CKD-EPI) equation refit without adjustment for race. BUN/Creatinine Ratio 23.7 LAB CHEMISTRY METHOD 11/08/2024 3:02 PM [facility] Calcium 9.0 8.5 - 10.5 mg/dL LAB CHEMISTRY METHOD 11/08/2024 3:02 PM [facility] AST (SGOT) 14 10 - 42 unit/L LAB CHEMISTRY METHOD 11/08/2024 3:02 PM [facility] ALT (SGPT) 38 10 - 60 unit/L LAB CHEMISTRY METHOD 11/08/2024 3:02 PM [facility] Alkaline Phosphatase 66 42 - 121 unit/L LAB CHEMISTRY METHOD 11/08/2024 3:02 PM [facility] Total Protein 6.7 6.0 - 8.0 g/dL LAB CHEMISTRY METHOD 11/08/2024 3:02 PM [facility] Albumin 3.7 3.2 - 5.0 g/dL LAB CHEMISTRY METHOD 11/08/2024 3:02 PM [facility] Total Bilirubin 0.4 0.0 - 1.4 mg/dL LAB CHEMISTRY METHOD 11/08/2024 3:02 PM [facility] Blood Venous blood specimen / Unknown Venipuncture / Unknown 11/08/2024 10:32 AM EDT 11/08/2024 10:32 AM EDT us Jeannie DREW LAB BLOOD ORDERABLES Final R esult [facility] ([facility]) [facility] [address] [place] [address], from Last 3 Months Insurance [facility] [employer] Advance Directives Documents on File Type Date Recorded Patient Security Guard Dispatcher Expl anation Advance Directives and Livin g [...] currently active code status orders. Care Teams Chart Changer Relationship Specialty Start Date End Date Svetlana Hickman MD [address] [place] [address] Dr [address] [facility] [place] [address] PCP - General Internal Medicine 06/20/24
== END 2024-11-29 15:51 | disposition home or self-care (01) ==
LOC: HO.HOS 14:50
PROVIDERS: PCP Internal Medicine
DX: M19.022 Primary osteoarthritis, left elbow (principal)
CPT/HCPCS: 99213

== ENCOUNTER 2024-11-29 14:50 | Outpatient (REF) | payer OTHER, SELFPAY ==
--- NOTE | ~2024-11-29 | XR_ITS ---
EXAMINATION: XR ELBOW, LEFT CLINICAL INFORMATION: M25.522 - Pain in left elbow COMPARISON: None available. TECHNIQUE: AP, lateral, and oblique views of the left elbow. FINDINGS: There is a small olecranon osteophyte at the triceps tendon attachment. Fat pads are not displaced. No fractures are seen. XR/XR elbow LT min 3V IMPRESSION: Small olecranon enthesophyte of uncertain significance. Electronically signed by: Rick Nolan MD 11/29/2024 03:45 PM EDT
--- OUTSIDE RECORDS SUMMARY | 2024-11-29 17:42 | XMS_ITS | Encounter Summary ---
Author Organization [facility] Address [address] [place] [phone] Phone Care Team Providers Care Tractor Driver Teamster Name Role Phone Morgan Arvizu MD Primary Care Provider Unavailabl e Encounter Details Date Type Department Care Team (Late st Contact Info) Description 11/06/2016 Conversion Encounter [facility] - [address] [address] Social History Tobacco Use Types Packs/Day Years [...] on filedocumented in this encounter Care Teams Tractor Driver Teamster Relationship Specialty Start Date End Date Morgan Arvizu MD PCP - General 10/31/16 documented as of this encounter
--- OUTSIDE RECORDS SUMMARY | 2024-11-29 17:43 | XMS_ITS | Encounter Summary ---
Author Organization [facility] Address [address] [place] [phone] Phone Care Team Providers Care Lip And Gate Builder Name Role Phone Morgan Arvizu MD Primary Care Provider Unavailabl e Encounter Details Date Type Department Care Team (Late st Contact Info) Description 07/10/2009 Documentation EM Family Medicine [address] [place] [address] Family Medicine, Physician [address] [place], [place] [id number] Social History Tobacco Use Types Packs/Day Years [...] on filedocumented in this encounter Care Teams Lip And Gate Builder Relationship Specialty Start Date End Date Morgan Arvizu MD PCP - General 10/31/16 documented as of this encounter
--- OUTSIDE RECORDS SUMMARY | 2024-11-29 17:43 | XMS_ITS | Clinical Summary ---
Author Organization [facility] Address [address] [place] [phone] Phone Care Team Providers Care Public Information Director Name Role Phone Morgan Arvizu MD Primary [...] of 2 - 13+ 2-dose series) 2002 HPV Vaccines (1 - 3-dose SCDM series) 2016 DTaP,Tdap,and Td Vaccines (7 - Td or Tdap) 05/11/2018 05/11/2008, 10/06/2002, 12/27/1993, Additional history exists Influenza Vaccines (#1) 2024 02/23/20, 05/11/2008, 01/28/2007 COVID-19 Vaccine ( season) 2024 HIB Vaccines Completed 01/12/1991 IPV Vaccines Completed 12/27/1993, 04/24, 02/19/1990, Additional history exists MMR Vaccines Completed 12/27/1993, 01/12/1991 Hepatitis B Vaccines Completed 12/06/1997, 03/06/1997, 01/31/1997 Meningococcal Vaccine Completed 11/26/2006 Hepatitis A Vaccines Aged Out No long er eligible based on patient's age to complete this topic Men B Vaccine Aged Out No longer elig ible based on patient's age to complete this topic Pneumococcal Vaccine Aged Out No long er eligible based on patient's age to complete this topic Care Teams Public Information Director Relationship Specialty Start Date End Date Morgan Arvizu MD PCP - General 10/31/16
--- OUTSIDE RECORDS SUMMARY | 2024-11-29 17:43 | XMS_ITS | Encounter Summary ---
Author Organization [facility] Address [address] [place] [address] Phone Care Team Providers Care Dressmaker Garment Fitter Name Role Phone Morgan Arvizu MD Primary Care Provider Unavailabl e Encounter Details Date Type Department Care Team (Late st Contact Info) Description 07/10/2009 Documentation EM Family Medicine [address] [place] [address] Family Medicine, Physician [address] [place], [place] [phone] Social History Tobacco Use Types Packs/Day Years [...] on filedocumented in this encounter Care Teams Dressmaker Garment Fitter Relationship Specialty Start Date End Date Morgan Arvizu MD PCP - General 10/31/16 documented as of this encounter
== END 2024-11-29 14:51 | disposition home or self-care (01) ==
LOC: HO.HOSX 14:50
PROVIDERS: PCP Internal Medicine
DX: M19.022 Primary osteoarthritis, left elbow (principal); Z79.1 Long term (current) use of non-steroidal anti-inflammatories (NSAID)
CPT/HCPCS: 73080; 99212

== ENCOUNTER → 2024-11-29 15:34 | Outpatient (BNV) | payer OTHER, SELFPAY | PROVIDERS: PCP Internal Medicine; Visit Provider Radiology Diagnostic Radiology | DX: M25.522 Pain in left elbow (principal); M25.722 Osteophyte, left elbow | CPT/HCPCS: 73080 ==

== ENCOUNTER 2025-01-17 11:48 | Outpatient (AMB) | payer OTHER, SELFPAY ==
--- OUTSIDE RECORDS SUMMARY | 2025-01-13 13:30 | XMS_ITS | Encounter Summary ---
Author Organization [facility] Address [address] [place] [address] Care Team Providers Care Ms Access Database Developer Name Role Phone Svetlana Hickman MD Primary Care Provider [phone] Reason for Visit * Reason Comments Post-op Visit Encounter Details Date Type Department Care Team (Late st Contact Info) Description 01/13/2025 1:30 PM EDT Telemedicine Bariatric Surgery - [address] [address] Lisa Mckenna, MAYE [address] [address] Bariatric surgery status (Primary Dx) Social History Tobacco Use Types Packs/Day Years Used Date Smoking Tobacco: Never Smokeless Tobacco: Never Alcohol Use Standard Drinks/Week Comments Yes 0 (1 standard drink = 0.6 oz pur e alcohol) Interpersonal Safety Answer Date Record ed Physical Abuse Unrecognized value 08/24/2024 Verbal Abuse Unrecognized value 08/24/2024 Sex and Gender Information Value Date Recorded Sex Assigned at Not on file Legal Sex Male 4:38 AM EST Gender Identity Not on file Sexual Orientation Not on file documented as of this encounter Last Filed Vital Signs Vital Sign Reading Time Taken Comments Blood Pressure - - Pulse - - Temperature - - Respiratory Rate - - Oxygen Saturation - - Inhaled Oxygen Concentration - - Weight 135 kg (298 lb) 01/13/2025 2:00 PM EDT Height - - Body Mass Index 45.31 11/08/2024 10:12 AM EDT documented in this encounter Progress Notes * Lisaryan Mckenna RD - 01/13/2025 1:30 PM EDT Patient-created Goals: 64 oz of water daily - preferably sipping throughout the day (no carbonation or sugar) -Incorporate healthy fats, vegetables, and fruit (day) into meals 75-100 grams protein If tolerated from lean protein sources such as chicken, turkey, fish, beans, [place]an yogurt (Brands: Okios, Ratio; 20-25 g protein), cottage cheese, eggs, tuna 20-35 grams protein each meal; 7-15 grams each snack A minimum of 3 meals per day. Preferably 3 small meals and 2 snacks spaced out over the course of the day (every 3-5 hours) Each meal and snack should include protein Protein shakes can replace a meal or snack, look for 20-30 grams of protein, less than 5 grams of added sugar (orgain, premiere) 30-45 minutes of moderate intensity exercise 4-5 times a week (cardio and strength training) utube is a great resource! =Start with 10-20 minutes strength training for beginners (utube) * Lisa Mckenna RD - 01/13/2025 1:30 PM EDT The patient received guidance on receiving healthcare through telehealth, including the use of HIPAA privacy -compliant technology for remote communication and its associated privacy risks. The patient was also informed of the limitations of treatment provided through telehealth and that in the event of a lost or failed video connection, the provider may call back or reschedule the visit. Alternatively, the patient may opt for an in-person visit. The patient gave consent for the use of video communication and provided care and confirmed that they were in a quiet and private location to discuss their health freely. The patient understands the visit will be submitted to their insurance and that they are responsible for any copay or deductible charges. Additionally, if the patient is LimitedEnglish Proficient, deaf, or hard of hearing, speech impaired, or has another disability which impairs their ability to communicate, the services of a qualified translator interpreter will be provided during the visit. Patients Location: home Total Time: 30 minutes NUTRITION FOLLOW-UP NOTE: Patient Name: Morrsi Love Date of : 1990 Date of Service: 01/13/2025 SURGEON: Panfilo Tenorio MD DESIRED SURGERY: s/p conversion of sleeve to bypass 08/24/2024 CHIEF COMPLAINT: Obesity HISTORY: Morris Love is a 34 y.o. male who presents for nutrition visit for post-op 3rd Ht Readings from Last 1 Encounters: 11/08/24 1.727 m (68 ) Wt today: Wt Readings from Last 7 Encounters: 01/13/25 135 kg (298 lb) 12/16/24 135 kg (298 lb) 11/08/24 135 kg (298 lb 6.4 oz) 09/29/24 141 kg (311 lb) 09/13/24 141 kg (311 lb) 08/24/24 145 kg (318 lb 14.3 oz) 08/08/24 149 kg (328 lb) Body mass index is 45.31 kg/m??. Wt at initial: Wt prior to surgery: 328 Wt change since surgery: -30 Pt unable to provide accurate weight this encounter RD recommended pt come in to office for weight check EBW = current - wt at BMI of 25: 298 - 160 = 148 GI issues: Diarrhea Cholecystectomy BM: 2x -3, softer not watery Challenges: always hungry Changes since last visit: tolerating foods, exercising EATING HABITS/DIET RECALL: wake up: 6:30-7 am; Sleep: 9:00-9:30 pm Breakfast: (9 am): 2 hard boiled eggs (12-14 grams) Snack: okios Lunch: (12 pm): can of tuna (20 g) , canned chicken breast with hard boiled egg Snack: protein shake (30) or protein bar (12 grams) Dinner: (5 pm): 6 -8 ounces protein (chicken, steak (3-4oz) with broccoli Snacks: 2-3 x week may have yogurt Beverages: Water (64 oz) M/V: daily Dines out: No Exercise: Sit ups (3-4x a week) walking (daily (15 -20 minutes) Reasons pt cannot exercise: none Nutrition diagnosis: Class Class III obesity related to Inadequate Physical Activity as evidenced by A BMI 43 Patient-created Goals: 64 oz of water daily - preferably sipping throughout the day (no carbonation or sugar) -Incorporate healthy fats, vegetables, and fruit (day) into meals 75-100 grams protein If tolerated from lean protein sources such as chicken, turkey, fish, beans, [place]an yogurt (Brands: Okios, Ratio; 20-25 g protein), cottage cheese, eggs, tuna 20-35 grams protein each meal; 7-15 grams each snack A minimum of 3 meals per day. Preferably 3 small meals and 2 snacks spaced out over the course of the day (every 3-5 hours) Each meal and snack should include protein Protein shakes can replace a meal or snack, look for 20-30 grams of protein, less than 5 grams of added sugar (orgain, premiere) 30-45 minutes of moderate intensity exercise 4-5 times a week (cardio and strength training) utube is a great resource! =Start with 10-20 minutes strength training for beginners (utube) Literature Provided: Goal sheets and RD contact information Interventions: Discuss the importance of eating at least 3 meals/day and the impact on metabolism, Discussed the importance of including protein with each meal and snack, and Discussed the importanceof exercise (strength and cardiovascular) Nutrition assessment: Pt is 34 y.o. Male with h/o has a past medical history of Asthma, GERD (gastroesophageal reflux disease), and Sleep apnea. Obesity class III Stage of change/Barriers to understanding: Pt is motivated to make changes to diet and lifestyle and No barriers to understanding Concerns regarding considerations for bariatric surgery: No surgery plan for pt a this time Monitoring/Evaluation: Monitor weight Patient nutritionally ready for surgery: s/p RD to see patient for follow-up nutrition visit in 2 months Visit Time: Total time of the visit was spent face to face in medical nutritional therapy was [address] [facility] documented in this encounter Plan of Treatment Upcoming Encounters Date Type Department Care Team (Late st Contact Info) Description 02/14/2025 1:45 PM EST Office Visit Bariatric Surgery - [address] [address] Jeannie Arthur PA [address] [place] [phone] 03/24/2025 9:30 AM EST Telemedicine Bariatric Surgery - [address] [address] Lisa Mckenna, RD 175 [facility] [address] [place] [address] documented as of this encounter Visit Diagnoses Diagnosis Bariatric surgery status- Primary documented in this encounter Care Teams Ms Access Database Developer Relationship Specialty Start Date End Date Vick, MD Svetlana [address] [place] [address] [address] [facility] [place] [address] PCP - General Internal Medicine 06/20/24 documented as of this encounter
--- NOTE | 2025-01-17 12:03 | MHC.OFFVIS ---
Intake Visit Reasons: Amnesia Allergies morphine (Morphine) Allergy (Unknown, Verified 11/29/24 15:25) PALPITATION, tachycardia, tachycardia HPI Comments Details: This is a 34-year-old right-handed man with a history of morbid obesity bronchial asthma who has had 2 bariatric surgeries with a gastric sleeve 5 years ago and a gastric bypass in August 2024. On the 10/23/2024 he got up from a desk and apparently had a syncopal episode falling and striking his head on a bookshelf and had a scalp laceration. He was unconscious for an extended period of time and did not wake up until he was in the [facility] Emergency room. Since then he has had retrograde amnesia going all the way back to 05/06/2024 and some spotty amnesia going back to 02/10/2024. He has not syncopal episode or seizure. Two years earlier he was playing with his child and slipped and fell and also hit his head and had an amnesia for a couple of weeks but gradually recovered from it. He was seen at [facility] in October and had a CAT scan MRI and labs all of which were normal. In general he is back to his baseline although he still loses train of thoughts sometimes in his conversations and forgets words. He sometimes repeats himself and asks his the same question again. He is scheduled for a 24 hour ambulatory EEG. [facility] Medical History (Updated 01/17/25 @ 12:35 by Naldo Acuña MD) Hand pain Numbness in both hands Decreased hearing of left ear Fatty liver Hypertriglyceridemia GERD (gastroesophageal reflux disease) Obstructive sleep apnea History of gastrectomy Asthma Surgical History (Updated 01/02/25 @ 12:58 by Svetlana Hickman MD) History of gastric bypass History of tonsillectomy History of sleeve gastrectomy Hx laparoscopic cholecystectomy Family History Father Hypertension High cholesterol Mother Rheumatoid arthritis Maternal Grandmother Breast cancer Paternal Grandmother Breast cancer Pancreatic cancer Myocardial infarct Paternal Grandfather Colon cancer Myocardial infarct Son Mental health disorder Social History Housing: House Alcohol intake: current Comment: once a year bottle Patient Tobacco Use Status: Never used Tobacco Tobacco use type: Cigarette e-Cigarette/Vaping Use: Never Used Second Hand Smoke Exposure: No service: No Current occupational status: employed 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 Orientation:?Knows correct year, month, date, day and season.?Knows correct city, county and state. Knows correct location and floor.? Registration:?Able to register 3 objects.? Attention:?Serial 7's performed accurately.? Recall:?Able to recall 2 out of 3 objects.? Language:?Normal spontaneous speech, fluency, repetition, naming, comprehension, reading, and writing.? Total Score:?29/30.? Neurological Abnormal neurological findings:??2/3 recall in 3 minutes.? Mental Status:?Alert and oriented X 3.?Normal attention, orientation, memory, and affect.? Cranial Nerves:?Pupils are equal, round and reactive to light. Fundoscopy shows normal disc bilaterally. External occular muscles are intact. Visual alcaraz are full, no ptosis. Face is symmetrical, no facial weakness or droop. Facial sensations are normal. Tongue protrudes in midline. Palate elevates symmetrically. Shoulder shrugging is normal.? Motor Examination:?Normal muscle tone, bulk and strength.?No atrophy or fasciculations.?No drift of the extended upper extremities.?Deep tendon reflexes are 2+.?Plantars are flexor.? Motor Strength:? Proximal Muscles (out of 5):?5 Distal Muscles (out of 5):?5 Neck Flexors (out of 5):?5 Neck Extensors (out of 5):?5 Deltoid (out of 5):?5 Biceps (out of 5):?5 Triceps (out of 5):?5 Serratus Anterior (out of 5):?5 Wrist Extensors (out of 5):?5 APB (out of 5):?5 Finger Spread (out of 5):?5 Ileopsoas (out of 5):?5 Quadriceps (out of 5):?5 Hamstrings (out of 5):?5 Tibialis Anterior (out of 5):?5 Peronei (out of 5):?5 EDB (out of 5):?5 Gastrocnemius (out of 5):?5 Straight Leg Raising:?90 degrees.? Sensory Exam:?Normal light touch, temperature, pinprick, vibration and joint-position sensations.?Rhomberg sign is absent.? Coordination:?No ataxia,?no titubation,?ubcdje-fn-xurm, zfbm-hrmj-tbkk test, and rapid alternating movements were normal.? Gait Exam:?Within normal limits.? Cerebellar Signs:?Fzzbhk-bd-gstw and tzuw-wa-kpdn is normal.?No dysdiadochokinesia.? Extrapyramidal System:?No tremor or?rigidity, normal facial expressions.?No bradykinesia. No bradyphrenia. Normal arm swing and posture. No propulsion or retropulsion.? Speech:?Normal,?no dysphasia or dysarthria.? General Examination GENERAL APPEARANCE:??normal,?in no acute distress?,?normal,?in no acute distress.? HEAD:??normocephalic,?atraumatic.? EYES:??sclera non-icteric,?conjunctiva clear.? EARS:??auditory canal clear,?tympanic membrane intact, clear.? NOSE:??no lesions.? ORAL CAVITY:??gums normal,?mucosa moist,?no lesions.? THROAT:??clear.? NECK/THYROID:??no cervical lymphadenopathy,?thyroid normal,?neck supple, full range of motion,?no carotid bruit.? SKIN:??no rashes,?no significant birthmarks.? HEART:??S1, S2 normal,?no murmurs?,?S1, S2 normal,?no murmurs.? LUNGS:??clear anteriorly and posteriorly?,?clear anteriorly and posteriorly.? CHEST:??no gross rib deformity,?clear to auscultation.? BACK:??normal exam of spine.? MUSCULOSKELETAL:??normal.? EXTREMITIES:??no edema?,?no edema.? PERIPHERAL PULSES:??normal.? PSYCH:??alert, oriented,?cognitive function intact,?cooperative with exam?,?alert, oriented,?cognitive function intact,?cooperative with exam.? 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 Between October 23 going back to May 06. Some of his dizziness is probably due to damage to his inner ear balance mechanisms. 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
--- OUTSIDE RECORDS SUMMARY | 2025-01-17 15:14 | XMS_ITS | Clinical Summary ---
Author Organization [facility] Address [address] [place] [address] Phone Care Team Providers Care Creative/Art Director Name Role Phone Morgan Arvizu MD [...] (#1) 2024 02/23/20, 05/11/2008, 01/28/2007 COVID-19 Vaccine (2024- season) 2024 HIB Vaccines Completed 01/12/1991 IPV [...] age to complete this topic Care Teams Creative/Art Director Relationship Specialty Start Date End Date Morgan Arvizu MD PCP - General 10/31/16
--- OUTSIDE RECORDS SUMMARY | 2025-01-17 15:14 | XMS_ITS | Encounter Summary ---
Author Organization [facility] Address [address] [place] [phone] Phone Care Team Providers Care Ambulatory Analyst Name Role Phone Morgan Arvizu MD Primary Care Provider Unavailabl e Encounter Details Date Type Department Care Team (Late st Contact Info) Description 07/10/2009 Documentation EM Family Medicine [address] [place] [address] Family Medicine, Physician [address] [place], [place] [address] Social History Tobacco Use Types Packs/Day Years [...] on filedocumented in this encounter Care Teams Ambulatory Analyst Relationship Specialty Start Date End Date Morgan Arvizu MD PCP - General 10/31/16 documented as of this encounter
--- OUTSIDE RECORDS SUMMARY | 2025-01-17 15:14 | XMS_ITS | Encounter Summary ---
Author Organization [facility] Address [address] [place] [address] Phone Care Team Providers Care Stage Set Designer Name Role Phone Morgan Arvizu MD Primary Care Provider Unavailabl e Encounter Details Date Type Department Care Team (Late st Contact Info) Description 07/10/2009 Documentation EM Family Medicine [address] [place] [address] Family Medicine, Physician [address] [place], [place] [phone] Social History Tobacco Use Types Packs/Day Years [...] on filedocumented in this encounter Care Teams Stage Set Designer Relationship Specialty Start Date End Date Morgan Arvizu MD PCP - General 10/31/16 documented as of this encounter
--- OUTSIDE RECORDS SUMMARY | 2025-01-17 15:14 | XMS_ITS | Encounter Summary ---
Author Organization [facility] Address [address] [place] [phone] Phone Care Team Providers Care Farm Hand Name Role Phone Morgan Arvizu MD Primary Care Provider Unavailabl e Encounter Details Date Type Department Care Team (Late st Contact Info) Description 11/06/2016 Conversion Encounter [facility] - [address] [address] Social History Tobacco Use Types Packs/Day Years [...] on filedocumented in this encounter Care Teams Farm Hand Relationship Specialty Start Date End Date Morgan Arvizu MD PCP - General 10/31/16 documented as of this encounter
--- OUTSIDE RECORDS SUMMARY | 2025-01-17 15:14 | XMS_ITS | Clinical Summary ---
Author Organization [facility] Address [address] [place] [address] Phone Care Team Providers Care Bridges Supervisor Name Role Phone Svetlana Hickman MD Primary Care Provider [phone] Allergies Active Allergy Reactions Criticality Noted Date Comments Morphine Palpitations Low 08/27/2021 Medications omeprazole (PriLOSEC) [address] capsule Take 1 capsule (20 mg total) by mouth 1 (one) time each day. 5 Active Symbicort 80-4.5 mcg/actuation inhaler Inhale 2 puffs by mouth 2 (two) times a day. 5 Active acetaminophen (TYLENOL) 500 mg tablet Take 2 tablets (1,000 mg total) by mouth every 8 (eight) hours. 180 tablet 5 Active simethicone (MYLICON) 80 mg chewable tablet Chew 1 tablet (80 mg total) every 6 (six) hours if needed for flatulence. 120 tablet 5 Active wheat dextrin 3 gram/3.5 gram powder in packet Take 1 packet by mouth 1 (one) time each day. 30 packet 5 Active albuterol HFA (PROAIR HFA ; PROVENTIL HFA ; VENTOLIN HFA) 90 mcg/actuation inhaler Inhale 2 puffs by mouth every 6 (six) hours if needed for wheezing. Active oxyCODONE (ROXICODONE) 5 mg immediate release tabletIndicati ons:Morbid obesity (CMS/HCC V24, CMS/HCC V28) Take 1 tablet (5 mg total) by mouth every 6 (six) hours if needed for severe pain. Max Daily Amount: 20 mg 12 tablet 5 Active ergocalciferol (VITAMIN D-2) 1,250 mcg (50,000 unit) capsuleIndicat ions:Vitamin D deficiency Take 1 capsule (50,000 Units total) by mouth 1 (one) time per week. 12 capsule 5 03/20/20 25 Active ferrous sulfate 325 mg (65 mg iron) EC tabletIndicati ons:S/P bariatric surgery TAKE ONE TABLET BY MOUTH EVERY DAY DO NOT CRUSH, CHEW, OR SPLIT 30 tablet 5 Active ferrous sulfate 325 mg (65 mg iron) EC tabletIndicati ons:S/P bariatric surgery Take 1 tablet (325 mg total) by mouth 1 (one) time each day. Do not crush, chew, or split. 30 each 5 01/06/20 25 Discontinued ergocalciferol (VITAMIN D-2) 1,250 mcg (50,000 unit) capsuleIndicat ions:Vitamin D deficiency Take 1 capsule (50,000 Units total) by mouth 1 (one) time per week for 8 doses. 8 each 5 12/27/19 25 Discontinued Vitamin D2 1,250 mcg (50,000 unit) capsuleIndicat ions:Vitamin D deficiency TAKE ONE CAPSULE BY MOUTH ONCE A WEEK 8 capsule 5 12/27/19 25 Discontinued Active Problems Problem Noted Date Diagnosed Date S/P bariatric surgery 09/29/2024 Morbid obesity ([facility] V24, [facility] V28) 2024 Encounters Date Type Department Care Team Description 01/13/2025 1:30 PM EDT Telemedicine Bariatric Surgery - [address] [phone] Bariatric surgery status (Primary Dx) 01/11/2025 Telephone Bariatric Surgery - [address] [phone] Jeannie Arthur PA 12/26/2024 Telephone Bariatric Surgery [address] [address] Panfilo Tenorio MD 12/16/2024 10:00 AM EDT Telemedicine Bariatric Surgery - [address] [place] [address] Bariatric surgery status (Primary Dx) 11/08/2024 10:15 AM EDT Office Visit Bariatric Surgery - [address] [address] Jeannie Arthur PA Obesity, Class III, BMI 40-49.9 (morbid obesity) (Primary Dx); Bariatric surgery status from Last 3 Months Surgical History Surgery Date Site/Laterality Comments OTHER SURGICAL HISTORY PROCEDURE: ---- OTHER ----; COMMENT: gastric sleeve TONSILLECTOMY ADENOIDECTOMY, BILATERAL MYRINGOTOMY AND TUBES PROCEDURE: CA TONSILLECTOMY & ADENOIDECTOMY <AGE 11 CHOLECYSTECTOMY PROCEDURE: [place] LAPAROSCOPY SURG CHOLECYSTECTOMY BARIATRIC SURGERY CARPAL TUNNEL [...] (298 lb) 01/13/2025 2:00 PM EDT Height 172.7 cm (5' 8 ) 11/08/2024 10:12 AM EDT Body Mass Index 45.31 11/08/2024 10:12 AM EDT Plan of Treatment Upcoming Encounters Date Type Department Care Team (Late st Contact Info) Description 02/14/2025 1:45 PM EST Office Visit Bariatric Surgery - [place] [address] [phone] Jeannie Arthur PA [address] [place] [id number] 03/24/2025 9:30 AM EST Telemedicine Bariatric Surgery - [place] [address] [phone] Lisa Mckenna, MAYE [address] [address] Health Maintenance Due Date Last Done Comments HPV Vaccines (1 - 3-dose SCDM series) 2016 HIV Screening 02/23/2022 Hepatitis C Screening 02/23/2022 Social Influencers of Health Screening 02/23/2022 Depression Screening 03/23/2024 COVID-19 Vaccine ( season) 2024 01/03/2021, 06/29/2020, 06/05/2020 Influenza Vaccine (#1) 2024 , 03/04/2019, 12/24/2016, Additional history exists Cholesterol Screening (Lipid Panel) 11/08/2029 11/08/2024 DTaP,Tdap,and Td Vaccines (11 - Td or Tdap) 11/03/2030 11/03/2020, 12/29/2019, 07/25/2014, Additional history exists RSV Immunization Adult Patients (1 - 1-dose 75+ series) 2064 HIB Vaccines Completed 01/12/1991 IPV Vaccines Completed 12/27/1993, 04/24, 02/19/1990, Additional history exists MMR Vaccines Completed 12/27/1993, 01/12/1991 Hepatitis B Vaccines Completed 12/06/1997, 03/06/1997, 01/31/1997 Meningococcal ACWY Vaccine Completed 11/26/2006 Pneumococcal Vaccine: Pediatrics (0 to 5 Years) and At-Risk Patients (6 to 49 Years) Aged Out 03/08/2019, 11/08/2016 No longer eligibl e based on patient's age to complete this [...] serious comorbidity present (CMS/HCC V24, CMS/HCC V28) THYROID STIMULATING HORMONE Routine 11/08/2024 10:32 [...] serious comorbidity present (CMS/HCC V24, CMS/HCC V28) COMPREHENSIVE METABOLIC PANEL Routine 11/08/2024 10:32 [...] LAB CHEMISTRY METHOD 11/08/2024 3:02 PM EDT [facility] Bilirubin, Direct 0.1 0.0 - 0.3 mg/dL LAB CHEMISTRY METHOD 11/08/2024 3:02 PM EDT [facility] Bilirubin, Indirect 0.3 0.0 - 1.1 mg/dL LAB CHEMISTRY METHOD 11/08/2024 3:02 PM EDT [facility] Blood Venous blood specimen / Unknown Venipuncture / Unknown 11/08/2024 10:32 AM EDT 11/08/2024 10:32 AM EDT us Panfilo Tenorio MD LAB BLOOD ORDERABLES Final R esult [facility] [address] [place] [address], [place] [phone] * (ABNORMAL) Lipid panel with reflex to direct LDL (11/08/2024 10:32 AM EDT) Cholesterol 111 0 - 200 mg/dL LAB CHEMISTRY METHOD 11/08[facility]2024 2:[facility] Triglycerides 132 0 - 150 mg/dL LAB CHEMISTRY METHOD 11/08/2024 2:37 PM [facility] HDL 33(L) >=40 mg/dL LAB CHEMISTRY METHOD 11/08/2024 2:37 PM [facility] LDL Calculated 52 0 - 100 mg/dL LAB CHEMISTRY METHOD 11/08/2024 2:37 PM T [facility] Comment:Estimated LDL Calcul ated using equation: Total cholesterol - HDL cholesterol - (Triglycerides/5) VLDL Cholesterol Ronnie 26.4 mg/dL LAB CHEMISTRY METHOD 11/08/2024 2:37 PM T [facility] Non HDL Chol. (LDL+VLDL) 78 <145 mg/dL LAB CHEMISTRY METHOD 11/08/2024 2:37 PM [facility] Chol/HDL Ratio 3.4 0.0 - 4.4 LAB CHEMISTRY METHOD 11/08/2024 2:37 PM [facility] Blood Venous blood specimen / Unknown Venipuncture / Unknown 11/08/2024 10:32 AM EDT 11/08/2024 10:32 AM EDT Panfilo Tenorio MD LAB BLOOD ORDERABLES Final R esult Performing Organization Address [facility] Co de Phone Number [facility] [address] [place] [address], [place] [phone] * (ABNORMAL) Iron and TIBC (11/08/2024 10:32 AM EDT) Iron 48(L) 50 - 160 mcg/dL LAB CHEMISTRY METHOD 11/08/2024 3:02 PM EDT [facility] TIBC 364 250 - 450 mcg/dL LAB CHEMISTRY METHOD 11/08/2024 3:02 PM EDT [facility] Iron Saturation 13(L) 20 - 50 % LAB CHEMISTRY METHOD 11/08/2024 3:02 PM EDT [facility] Blood Venous blood specimen / Unknown Venipuncture / Unknown 11/08/2024 10:32 AM EDT 11/08/2024 10:32 AM EDT Jeannie DREW LAB BLOOD ORDERABLES Final R esult Performing Organization Address [facility] Phone Number [facility] [address] [place] [address], [place] [phone] * Copper, serum (11/08/2024 10:32 AM EDT) Copper 1229 665 - 1480 ug/L 11/14/2024 7:44 AM EDT [facility] Comment: Elevated results may be due to sample collected in a non-certified trace element-free tube. This test was developed and the performance characteristics determined by [facility]. It has not been cleared or approved by the FDA. The laboratory is regulated under CLIA as qualified to perform high-complexity testing. This test is used for patient testing purposes. It should not be regarded as investigational or for research. Test performed at [facility], [address] [place] [address] Jessica Smith MD, PhD - [employer] Blood Venous blood specimen / Unknown Venipuncture / Unknown 11/08/2024 10:32 AM EDT 11/08/2024 10:32 AM EDT Jeannie DREW LAB BLOOD ORDERABLES Final R esult Performing Organization Address City/[facility] Co de Phone Number [facility] [address] [place] [address] * Zinc (11/08/2024 10:32 AM EDT) Zinc 67 60 - 130 ug/dL 11/11/2024 9:10 AM EDT [facility] Comment: Elevated results may be due to sample collected in a non-certified trace element-free tube. This test was developed and the performance characteristics determined by [facility]. It has not been cleared or approved by the FDA. The laboratory is regulated under CLIA as qualified to perform high-complexity testing. This test is used for patient testing purposes. It should not be regarded as investigational or for research. Test performed at [facility], [address] [facility], [place] [address] Jessica Smith MD, PhD - [employer] Blood Venous blood specimen / Unknown Venipuncture / Unknown 11/08/2024 10:32 AM EDT 11/08/2024 10:32 AM EDT Jeannie DREW LAB BLOOD ORDERABLES Final R esult Performing Organization Address [facility] Co de Phone Number [facility] [address] [place] [address] * Vitamin A (11/08/2024 10:32 AM EDT) Vitamin A 38 38 - 106 ug/dL 11/14/2024 6:10 AM EDT [facility] Comment: This test was developed and the performance characteristics determined by [facility]. It has not been cleared or approved by the FDA. The laboratory is regulated under CLIA as qualified to perform high-complexity testing. This test is used for patient testing purposes. It should not be regarded as investigational or for research. Test performed at [facility], [address] , [place] [address] Jessica Smith MD, PhD - [employer] Blood Venous blood specimen / Unknown Venipuncture / Unknown 11/08/2024 10:32 AM EDT 11/08/2024 10:32 AM EDT Jeannie DREW LAB BLOOD ORDERABLES Final R esult Performing Organization Address [facility]/ZIP Co de Phone Number [facility] [address] [place] [address] * Selenium serum (11/08/2024 10:32 AM EDT) [facility] Signature Selenium 133 63 - 160 mcg/L 11/12/2024 11:13 PM EDT [facility] Comment: This test was developed and its analytical performance characteristics have been determined by [place]. It has not been cleared or approved by the U.S. Food and Drug Administration. This assay has been validated pursuant to the CLIA regulations and is used for clinical purposes. Test Performed by [facility], [facility], [address] [place] [address] Jan Buck M.D., Ph.D., Director of Laboratories , CLIA [id number] Blood Venous blood specimen / Unknown Venipuncture / Unknown 11/08/2024 10:32 AM EDT 11/08/2024 10:32 AM EDT Jeannie DREW LAB BLOOD ORDERABLES Final R esult Performing Organization Address [facility]/ZIP Co de Phone Number [facility] [address] [place], [place] [id number] * (ABNORMAL) Vitamin D 25 hydroxy (11/08/2024 10:32 AM EDT) [facility] Vit D, 25-Hydroxy 27.6(L) 30.0 - 80.0 ng/mL LAB CHEMISTRY METHOD 11/08/2024 3:40 PM EDT [facility] Blood Venous blood specimen / Unknown Venipuncture / Unknown 11/08/2024 10:32 AM EDT 11/08/2024 10:32 AM EDT Jeannie DREW LAB BLOOD ORDERABLES Final R esult Performing Organization Address [facility]/ZIP Co de Phone Number [facility] [address] [place] [address], [place] [phone] * Thyroid stimulating hormone (11/08/2024 10:32 AM EDT) [facility] TSH 1.26 0.40 - 4.00 mcIU/mL LAB CHEMISTRY METHOD 11/08/2024 3:40 PM EDT [facility] Blood Venous blood specimen / Unknown Venipuncture / Unknown 11/08/2024 10:32 AM EDT 11/08/2024 10:32 AM EDT Panfilo Tenorio MD LAB BLOOD ORDERABLES Final R esult Performing Organization Address City/[facility]/ZIP Co de Phone Number [facility] [address] [place] [address], [place] [phone] * Vitamin B1 (11/08/2024 10:32 AM EDT) [facility] Vitamin B1 Whole Blood 58 38 - 122 ug/L 11/14/2024 6:29 AM EDT [facility] Comment: This test was developed and the performance characteristics determined by [facility]. It has not been cleared or approved by the FDA. The laboratory is regulated under CLIA as qualified to perform high-complexity testing. This test is used for patient testing purposes. It should not be regarded as investigational or for research. Test performed at [facility], [address] [place] [address] Jessica Smith MD, PhD - [employer] Blood Venous blood specimen / Unknown Venipuncture / Unknown 11/08/2024 10:32 AM EDT 11/08/2024 10:32 AM EDT Jeannie DREW LAB BLOOD ORDERABLES Final R esult [facility] [address] [place] [address] * Vitamin B6 (11/08/2024 10:32 AM EDT) Vitamin B6 (Pyridoxine) Level 29 5 - 50 ug/L 11/14/2024 9:19 AM EDT [facility] Comment: This test was developed and the performance characteristics determined by [facility]. It has not been cleared or approved by the FDA. The laboratory is regulated under CLIA as qualified to perform high-complexity testing. This test is used for patient testing purposes. It should not be regarded as investigational or for research. Test performed at [facility], [address] [facility], [place] [address] Jessica Smith MD, PhD - [employer] Blood Venous blood specimen / Unknown Venipuncture / Unknown 11/08/2024 10:32 AM EDT 11/08/2024 10:32 AM EDT Jeannie DREW LAB BLOOD ORDERABLES Final R esult [facility] [address] [place] [address] * Hemoglobin A1c (11/08/2024 10:32 AM EDT) Hemoglobin A1C 5.3 <6.5 % LAB CHEMISTRY METHOD 11/08/2024 9:22 PM EDT [facility] Mean Bld Glu Estim. 105 mg/dL LAB CHEMISTRY METHOD 11/08/2024 9:22 PM EDT [facility] Blood Venous blood specimen / Unknown Venipuncture / Unknown 11/08/2024 10:32 AM EDT 11/08/2024 10:32 AM EDT Panfilo Tenorio MD LAB BLOOD ORDERABLES Final R esult Performing Organization Address City/[facility]/ZIP Co de Phone Number [facility] [address] [place] [address], [place] [phone] * Folate (11/08/2024 10:32 AM EDT) Pathologist [facility] Folate 11.7 2.8 - 17.0 ng/ml LAB CHEMISTRY METHOD 11/08/2024 3:02 PM EDT [facility] Blood Venous blood specimen / Unknown Venipuncture / Unknown 11/08/2024 10:32 AM EDT 11/08/2024 10:32 AM EDT Jeannie DREW LAB BLOOD ORDERABLES Final R esult Performing Organization Address [facility] Co de Phone Number [facility] [address] [place] [address], [place] [phone] * (ABNORMAL) Vitamin B12 (11/08/2024 10:32 AM EDT) Pathologist [facility] Vitamin B-12 951(H) 250 - 900 pcg/mL LAB CHEMISTRY METHOD 11/08/2024 3:02 PM EDT [facility] Blood Venous blood specimen / Unknown Venipuncture / Unknown 11/08/2024 10:32 AM EDT 11/08/2024 10:32 AM EDT Jeannie DREW LAB BLOOD ORDERABLES Final R esult [facility] [address] [place] [address], [place] [phone] * (ABNORMAL) Comprehensive metabolic panel (11/08/2024 10:32 AM EDT) Sodium 140 133 - 145 mmol/L LAB CHEMISTRY METHOD 11/08/2024 3:02 PM [facility] Potassium 3.8 3.5 - 5.5 mmol/L LAB CHEMISTRY METHOD 11/08/2024 3:02 PM [facility] Chloride 108 96 - 110 mmol/L LAB CHEMISTRY METHOD 11/08/2024 3:02 PM [facility] CO2 28 21 - 32 mmol/L LAB CHEMISTRY METHOD 11/08/2024 3:02 PM [facility] Anion Gap 4 3 - 11 LAB CHEMISTRY METHOD 11/08/2024 3:02 PM [facility] Glucose 81 70 - 100 mg/dL LAB CHEMISTRY METHOD 11/08/2024 3:02 PM [facility] BUN 14 5 - 25 mg/dL LAB CHEMISTRY METHOD 11/08/2024 3:02 PM [facility] Creatinine 0.59(L) 0.70 - 1.30 mg/dL LAB CHEMISTRY METHOD 11/08/2024 3:02 PM [facility] eGFR 130 >=60 mL/min/1. 73m2 LAB CHEMISTRY METHOD 11/08/2024 3:02 PM [facility] Comment:Calculation based on the Chronic Kidney Disease Epidemiology Collaboration (CKD-EPI) equation refit without adjustment for race. BUN/Creatinine Ratio 23.7 LAB CHEMISTRY METHOD 11/08/2024 3:02 PM [facility] Calcium 9.0 8.5 - 10.5 mg/dL LAB CHEMISTRY METHOD 11/08/2024 3:02 PM [facility] AST (SGOT) 14 10 - 42 unit/L LAB CHEMISTRY METHOD 11/08/2024 3:02 PM EDT [facility] ALT (SGPT) 38 10 - 60 unit/L LAB CHEMISTRY METHOD 11/08/2024 3:02 PM EDT [facility] Alkaline Phosphatase 66 42 - 121 unit/L LAB CHEMISTRY METHOD 11/08/2024 3:02 PM EDT [facility] Total Protein 6.7 6.0 - 8.0 g/dL LAB CHEMISTRY METHOD 11/08/2024 3:02 PM EDT [facility] Albumin 3.7 3.2 - 5.0 g/dL LAB CHEMISTRY METHOD 11/08/2024 3:02 PM EDT [facility] Total Bilirubin 0.4 0.0 - 1.4 mg/dL LAB CHEMISTRY METHOD 11/08/2024 3:02 PM EDT [facility] Blood Venous blood specimen / Unknown Venipuncture / Unknown 11/08/2024 10:32 AM EDT 11/08/2024 10:32 AM EDT Jeannie DREW LAB BLOOD ORDERABLES Final R esult [facility] [address] [place] [address], from Last 3 Months Insurance [facility] [employer] Advance Directives Documents on File Type Date Recorded Patient [employer] Expl anation Advance Directives and Javier reis Will 08/25/2024 11:50 AM PROXY * Full [...] currently active code status orders. Care Teams Bridges Supervisor Relationship Specialty Start Date End Date Svetlana Hickman MD [address] [place] [address] Dr [address] [facility] [place] [id number] PCP - General Internal Medicine 06/20/24
== END 2025-01-17 12:29 | disposition home or self-care (01) ==
LOC: HO.HSM 11:49
PROVIDERS: PCP Internal Medicine; Visit Provider Psychiatry & Neurology Neurology
DX: R41.3 Other amnesia (principal); R55 Syncope and collapse
CPT/HCPCS: 99204

== ENCOUNTER → 2025-01-17 11:48 | Outpatient (BNVA) | payer OTHER, SELFPAY | PROVIDERS: PCP Internal Medicine; Visit Provider Psychiatry & Neurology Neurology | DX: R41.3 Other amnesia (principal); R55 Syncope and collapse | CPT/HCPCS: 99202 ==

== ENCOUNTER 2025-01-23 08:57 | Outpatient (REF) | payer OTHER, SELFPAY ==
--- NOTE | 2025-01-23 09:01 | EEG_ITS ---
24 HOUR AMBULATORY EEG Reason for Exam: R41.3 Other amnesia History: History from visit note 34-year-old right-handed man with a history of morbid obesity bronchial asthma who has had 2 bariatric surgeries with a gastric sleeve 5 years ago and a gastric bypass in August 2024. On the 10/23/2024 he got up from a desk and apparently had a syncopal episode falling and striking his head on a bookshelf and had a scalp laceration. He was unconscious for an extended period of time and did not wake up until he was in the [facility] Emergency room. Since then he has had retrograde amnesia going all the way back to 05/06/2024 and some spotty amnesia going back to 02/10/2024. He has not syncopal episode or seizure. Two years earlier he was playing with his child and slipped and fell and also hit his head and had an amnesia for a couple of weeks but gradually recovered from it. He was seen at [facility] in October and had a CAT scan MRI and labs all of which were normal. In general he is back to his baseline although he still loses train of thoughts sometimes in his conversations and forgets words. He sometimes repeats himself and asks his the same question again- H/O gastric bypass, tonsillectomy, sleeve gastrectomy, laparoscopic cholecystectomy Medication: vitamins Technical description: Behavioral state: Pleasant and cooperative State of Consciousness: Awake and asleep Skull defect: no Sedation: no Handedness: right Duration of study: 24 hour study Tech note: During this 24 hour study pt c/o 5 episodes of dizziness Description: The waking background activity consists of low-voltage fast frequencies seen diffusely intermixed with the low-voltage posterior 10 hertz alpha frequency that is seen symmetrically and attenuates well with eye opening. Drowsiness is characterized by diffuse theta slowing. During sleep symmetrical frontocentral sleep spindles, vertex sharp transients and K complexes develop over both hemispheres. During stage III and 4 of sleep delta frequencies was seen over both hemispheres. Arousals were frequent and unremarkable other than increased muscle artifact. Five episodes of dizziness are reported with only muscle artifact and no other abnormalities. There are several episodes lasting from 2- 8 seconds of what appears to be 3.5 hertz small polyspike wave discharge versus a chewing artifact over both hemispheres symmetrically. It is difficult to clearly identified as a paroxysmal discharge are an artifact. Clinical correlation is suggested Impression: This 24 hour ambulatory EEG is probably within normal limits. Five episodes of dizziness reported during which only muscle artifacts are seen. However, there are several episodes lasting from 2-8 seconds with 3.5 hertz small polyspike wave discharges which can not be from chewing artifact versus paroxysmal discharge. Clinical correlation is suggested. MTDD
--- OUTSIDE RECORDS SUMMARY | 2025-01-23 09:39 | XMS_ITS | Encounter Summary ---
Author Organization [facility] Address [address] [place] [address] Phone Care Team Providers Care Doll Surgeon Name Role Phone Morgan Arvizu MD Primary Care Provider Unavailabl e Encounter Details Date Type Department Care Team (Late st Contact Info) Description 11/06/2016 Conversion Encounter [facility] - [address] [address] Social History Tobacco Use Types Packs/Day Years [...] on filedocumented in this encounter Care Teams Doll Surgeon Relationship Specialty Start Date End Date Morgan Arvizu MD PCP - General 10/31/16 documented as of this encounter
--- OUTSIDE RECORDS SUMMARY | 2025-01-23 09:39 | XMS_ITS | Clinical Summary ---
Author Organization [facility] Address [address] [place] [address] Phone Care Team Providers Care Polishing Wheel Repairer Name Role Phone Svetlana Hickman MD Primary Care Provider [phone] Allergies Active Allergy Reactions Criticality Noted Date [...] CHEW, OR SPLIT 30 tablet 5 Active phentermine 15 mg capsuleIndicat ions:Obesity, Class III, BMI 40-49.9 (morbid obesity) ([facility] V28) Take 1 capsule (15 mg total) by mouth 1 (one) time each day before breakfast. Max Daily Amount: 15 mg 30 each 5 04/18/19 26 Active ferrous sulfate 325 mg (65 mg [...] Date S/P bariatric surgery 09/29/2024 Morbid obesity ([facility] V24, [facility] V28) 2024 Encounters Date Type Department Care Team Description 01/13/2025 1:30 PM EDT Telemedicine Bariatric Surgery - [address] [phone] Bariatric surgery status (Primary Dx) 01/11/2025 Telephone Bariatric Surgery - [address] [phone] Jeannie Arthur PA 12/26/2024 Telephone Bariatric Surgery - [address] [phone] Panfilo Tenorio MD 12/16/2024 10:00 AM EDT Telemedicine Bariatric Surgery - [address] [phone] Bariatric surgery status (Primary Dx) 11/08/2024 10:15 AM EDT Office Visit Bariatric Surgery - [address] [phone] Jeannie Arthur PA Obesity, Class III, BMI 40-49.9 (morbid obesity) (Primary Dx); Bariatric surgery status from Last 3 Months Surgical History Surgery Date Site/Laterality Comments OTHER SURGICAL HISTORY PROCEDURE: ---- OTHER ----; COMMENT: gastric sleeve TONSILLECTOMY ADENOIDECTOMY, BILATERAL MYRINGOTOMY AND TUBES PROCEDURE: MD TONSILLECTOMY & ADENOIDECTOMY <AGE 11 CHOLECYSTECTOMY PROCEDURE: MD LAPAROSCOPY SURG CHOLECYSTECTOMY BARIATRIC SURGERY CARPAL TUNNEL [...] PM EST Office Visit Bariatric Surgery - [place] [address] [phone] Jeannie Arthur, PA [address] [place] [phone] 03/24/2025 9:30 AM EST Telemedicine Bariatric Surgery - [place] [address] [phone] Lsia Mckenna, MAYE [address] [phone] Health Maintenance Due Date Last [...] LAB CHEMISTRY METHOD 11/08/2024 3:02 PM EDT [facility] Bilirubin, Direct 0.1 0.0 - 0.3 mg/dL LAB CHEMISTRY METHOD 11/08/2024 3:02 PM EDT [facility] Bilirubin, Indirect 0.3 0.0 - 1.1 mg/dL LAB CHEMISTRY METHOD 11/08/2024 3:02 PM EDT [facility] Blood Venous blood specimen / Unknown Venipuncture / Unknown 11/08/2024 10:32 AM EDT 11/08/2024 10:32 AM EDT us Panfilo Tenorio MD LAB BLOOD ORDERABLES Final R esult [facility] [address] [place] [address], [place] [phone] * (ABNORMAL) Lipid panel with reflex to direct LDL (11/08/2024 10:32 AM EDT) [facility] Cholesterol 111 0 - 200 mg/dL LAB CHEMISTRY METHOD 11/08/2024 2:37 PM EDT [facility] Triglycerides 132 0 - 150 mg/dL LAB CHEMISTRY METHOD 11/08/2024 2:37 PM EDT [facility] HDL 33(L) >=40 mg/dL LAB CHEMISTRY METHOD 11/08/2024 2:37 PM EDT [facility] LDL Calculated 52 0 - 100 mg/dL LAB CHEMISTRY METHOD 11/08/2024 2:37 PM EDT [facility] Comment:Estimated LDL Calcul ated using equation: Total cholesterol - HDL cholesterol - (Triglycerides/5) VLDL Cholesterol Ronnie 26.4 mg/dL LAB CHEMISTRY METHOD 11/08/2024 2:37 PM EDT [facility] Non HDL Chol. (LDL+VLDL) 78 <145 mg/dL LAB CHEMISTRY METHOD 11/08/2024 2:37 PM EDT [facility] Chol/HDL Ratio 3.4 0.0 - 4.4 LAB CHEMISTRY METHOD 11/08/2024 2:37 PM EDT [facility] Blood Venous blood specimen / Unknown Venipuncture / Unknown 11/08/2024 10:32 AM EDT 11/08/2024 10:32 AM EDT Panfilo Tenorio MD LAB BLOOD ORDERABLES Final R esult Performing Organization Address City/[facility]/ZIP Co de Phone Number [facility] [address] [place] [address], [place] [phone] * (ABNORMAL) Iron and TIBC (11/08/2024 10:32 AM EDT) Iron 48(L) 50 - 160 mcg/dL LAB CHEMISTRY METHOD 11/08/2024 3:02 PM EDT [facility] TIBC 364 250 - 450 mcg/dL LAB CHEMISTRY METHOD 11/08/2024 3:02 PM EDT [facility] Iron Saturation 13(L) 20 - 50 % LAB CHEMISTRY METHOD 11/08/2024 3:02 PM EDT [facility] Blood Venous blood specimen / Unknown Venipuncture / Unknown 11/08/2024 10:32 AM EDT 11/08/2024 10:32 AM EDT us Jeannie DERW LAB BLOOD ORDERABLES Final R esult Performing Organization Address City/[facility]/ZIP Co de Phone Number [facility] [address] [place] [address], [place] [phone] * Copper, serum (11/08/2024 10:32 AM EDT) Copper 1229 665 - 1480 ug/L 11/14/2024 7:44 AM EDT [facility] Comment: Elevated results may be due to sample collected in a non-certified trace element-free tube. This test was developed and the performance characteristics determined by [facility]. It has not been cleared or approved by the FDA. The laboratory is regulated under CLIA as qualified to perform high-complexity testing. This test is used for patient testing purposes. It should not be regarded as investigational or for research. Test performed at [facility], [address] [place] [address] Jessica Smith MD, PhD - [employer] Blood Venous blood specimen / Unknown Venipuncture / Unknown 11/08/2024 10:32 AM EDT 11/08/2024 10:32 AM EDT Jeannie DRE[facility] LAB BLOOD ORDERABLES Final R esult Performing Organization Address [facility] Co de Phone Number [facility] [address] [place] [address] * Zinc (11/08/2024 10:32 AM EDT) [facility] Zinc 67 60 - 130 ug/dL 11/11/2024 9:10 AM EDT [facility] Comment: Elevated results may be due to sample collected in a non-certified trace element-free tube. This test was developed and the performance characteristics determined by [facility]. It has not been cleared or approved by the FDA. The laboratory is regulated under CLIA as qualified to perform high-complexity testing. This test is used for patient testing purposes. It should not be regarded as investigational or for research. Test performed at [facility], [address] [place] [address] Jessica Smith MD, PhD - Supervisor [employer] Blood Venous blood specimen / Unknown Venipuncture / Unknown 11/08/2024 10:32 AM EDT 11/08/2024 10:32 AM EDT Jeannie DRE[facility] LAB BLOOD ORDERABLES Final R esult Performing Organization Address City/[facility] Co de Phone Number [facility] [address] [place] [address] * Vitamin A (11/08/2024 10:32 AM EDT) Vitamin A 38 38 - 106 ug/dL 11/14/2024 6:10 AM EDT [facility] Comment: This test was developed and the performance characteristics determined by [facility]. It has not been cleared or approved by the FDA. The laboratory is regulated under CLIA as qualified to perform high-complexity testing. This test is used for patient testing purposes. It should not be regarded as investigational or for research. Test performed at [facility], [address] , [place] [address] Jessica Smith MD, PhD - Super[employer] Blood Venous blood specimen / Unknown Venipuncture / Unknown 11/08/2024 10:32 AM EDT 11/08/2024 10:32 AM EDT Jeannie [facility] LAB BLOOD ORDERABLES Final R esult [facility] [address] [place] [address] * Selenium serum (11/08/2024 10:32 AM EDT) Selenium 133 63 - 160 mcg/L 11/12/2024 11:13 PM EDT [facility] Comment: This test was developed and its analytical performance characteristics have been determined by [facility] [place], [place]. It has not been cleared or approved by the U.S. Food and Drug Administration. This assay has been validated pursuant to the CLIA regulations and is used for clinical purposes. Test Performed by [email or web address], [address] [place], [address] [place], [place] Jan Buck M.D., Ph.D., Director of Laboratories , CLIA [id number] Blood Venous blood specimen / Unknown Venipuncture / Unknown 11/08/2024 10:32 AM EDT 11/08/2024 10:32 AM EDT Jeannie [facility] BLOOD ORDERABLES Final R esult [address] [place] [address] * (ABNORMAL) Vitamin D 25 hydroxy (11/08/2024 10:32 AM EDT) [facility] Vit D, 25-Hydroxy 27.6(L) 30.0 - 80.0 ng/mL LAB CHEMISTRY METHOD 11/08/2024 3:40 PM EDT [facility] Blood Venous blood specimen / Unknown Venipuncture / Unknown 11/08/2024 10:32 AM EDT 11/08/2024 10:32 AM EDT Jeannie [facility] LAB BLOOD ORDERABLES Final R esult Performing Organization Address City/[facility]/ZIP Co de Phone Number [facility] [address] [place] [address], [place] [phone] * Thyroid stimulating hormone (11/08/2024 10:32 AM EDT) [facility] TSH 1.26 0.40 - 4.00 mcIU/mL LAB CHEMISTRY METHOD 11/08/2024 3:40 PM EDT [facility] Blood Venous blood specimen / Unknown Venipuncture / Unknown 11/08/2024 10:32 AM EDT 11/08/2024 10:32 AM EDT Panfilo Tenorio MD LAB BLOOD ORDERABLES Final R esult Performing Organization Address City/[facility]/ZIP Co de Phone Number [facility] [address] [place] [address], [place] [phone] * Vitamin B1 (11/08/2024 10:32 AM EDT) [facility] Vitamin B1 Whole Blood 58 38 - 122 ug/L 11/14/2024 6:29 AM EDT [facility] Comment: This test was developed and the performance characteristics determined by [facility]. It has not been cleared or approved by the FDA. The laboratory is regulated under CLIA as qualified to perform high-complexity testing. This test is used for patient testing purposes. It should not be regarded as investigational or for research. Test performed at [facility], [address] [place] [address] Jessica Smith MD, PhD - Supervisor [employer] Blood Venous blood specimen / Unknown Venipuncture / Unknown 11/08/2024 10:32 AM EDT 11/08/2024 10:32 AM EDT Jeannie [facility] LAB BLOOD ORDERABLES Final R esult Performing Organization Address City/[facility] Co de Phone Number [facility] [address] [place] [address] * Vitamin B6 (11/08/2024 10:32 AM EDT) Vitamin B6 (Pyridoxine) Level 29 5 - 50 ug/L 11/14/2024 9:19 AM EDT [facility] Comment: This test was developed and the performance characteristics determined by [facility]. It has not been cleared or approved by the FDA. The laboratory is regulated under CLIA as qualified to perform high-complexity testing. This test is used for patient testing purposes. It should not be regarded as investigational or for research. Test performed at [facility], [address] [place] [address] Jessica Smith MD, PhD - Super[employer] Blood Venous blood specimen / Unknown Venipuncture / Unknown 11/08/2024 10:32 AM EDT 11/08/2024 10:32 AM EDT Jeannie Mg [facility] LAB BLOOD ORDERABLES Final R esult Performing Organization Address City/[facility]/ZIP Co de Phone Number [facility] [address] [place] [address] * Hemoglobin A1c (11/08/2024 10:32 AM EDT) [facility] Hemoglobin A1C 5.3 <6.5 % LAB CHEMISTRY METHOD 11/08/2024 9:22 PM EDT [facility] Mean Bld Glu Estim. 105 mg/dL LAB CHEMISTRY METHOD 11/08/2024 9:22 PM EDT [facility] Blood Venous blood specimen / Unknown Venipuncture / Unknown 11/08/2024 10:32 AM EDT 11/08/2024 10:32 AM EDT Panfilo Tenorio MD LAB BLOOD ORDERABLES Final R esult Performing Organization Address City/[facility]/ZIP Co de Phone Number [facility] [address] [place] [address], * Folate (11/08/2024 10:32 AM EDT) [facility] Folate 11.7 2.8 - 17.0 ng/ml LAB CHEMISTRY METHOD 11/08/2024 3:02 PM EDT [facility] Blood Venous blood specimen / Unknown Venipuncture / Unknown 11/08/2024 10:32 AM EDT 11/08/2024 10:32 AM EDT Jeannie [facility] LAB BLOOD ORDERABLES Final R esult [facility] [address] [place] [address], * (ABNORMAL) Vitamin B12 (11/08/2024 10:32 AM EDT) [facility] Vitamin B-12 951(H) 250 - 900 pcg/mL LAB CHEMISTRY METHOD 11/08/2024 3:02 PM EDT [facility] Blood Venous blood specimen / Unknown Venipuncture / Unknown 11/08/2024 10:32 AM EDT 11/08/2024 10:32 AM EDT us Jeannie DRE[facility] LAB BLOOD ORDERABLES Final R esult [facility] [address] [place] [address], * (ABNORMAL) Comprehensive metabolic panel (11/08/2024 10:32 AM EDT) Sodium 140 133 - 145 mmol/L LAB CHEMISTRY METHOD 11/08/2024 3:02 PM [facility] Potassium 3.8 3.5 - 5.5 mmol/L LAB CHEMISTRY METHOD 11/08/2024 3:02 PM [facility] Chloride 108 96 - 110 mmol/L LAB CHEMISTRY METHOD 11/08/2024 3:02 PM [facility] CO2 28 21 - 32 mmol/L LAB CHEMISTRY METHOD 11/08/2024 3:02 PM [facility] Anion Gap 4 3 - 11 LAB CHEMISTRY METHOD 11/08/2024 3:02 PM [facility] Glucose 81 70 - 100 mg/dL LAB CHEMISTRY METHOD 11/08/2024 3:02 PM [facility] BUN 14 5 - 25 mg/dL LAB CHEMISTRY METHOD 11/08/2024 3:02 PM [facility] Creatinine 0.59(L) 0.70 - 1.30 mg/dL LAB CHEMISTRY METHOD 11/08/2024 3:02 PM [facility] eGFR 130 >=60 mL/min/1. 73m2 LAB CHEMISTRY METHOD 11/08/2024 3:02 PM [facility] Comment:Calculation based on the Chronic Kidney Disease Epidemiology Collaboration (CKD-EPI) equation refit without adjustment for race. BUN/Creatinine Ratio 23.7 LAB CHEMISTRY METHOD 11/08/2024 3:02 PM [facility] Calcium 9.0 8.5 - 10.5 mg/dL LAB CHEMISTRY METHOD 11/08/2024 3:02 PM [facility] AST (SGOT) 14 10 - 42 unit/L LAB CHEMISTRY METHOD 11/08/2024 3:02 PM [facility] ALT (SGPT) 38 10 - 60 unit/L LAB CHEMISTRY METHOD 11/08/2024 3:02 PM [facility] Alkaline Phosphatase 66 42 - 121 unit/L LAB CHEMISTRY METHOD 11/08/2024 3:02 PM [facility] Total Protein 6.7 6.0 - 8.0 g/dL LAB CHEMISTRY METHOD 11/08/2024 3:02 PM [facility] Albumin 3.7 3.2 - 5.0 g/dL LAB CHEMISTRY METHOD 11/08/2024 3:02 PM [facility] Total Bilirubin 0.4 0.0 - 1.4 mg/dL LAB CHEMISTRY METHOD 11/08/2024 3:02 PM [facility] Blood Venous blood specimen / Unknown Venipuncture / Unknown 11/08/2024 10:32 AM EDT 11/08/2024 10:32 AM EDT us Jeannie [facility] LAB BLOOD ORDERABLES Final R esult [facility] [address] [place] [address], from Last 3 Months Insurance [facility] Advance Directives Documents on File Type Date Recorded Patient Healthcare Educator Expl anation Advance Directives and Livin g [...] currently active code status orders. Care Teams Polishing Wheel Repairer Relationship Specialty Start Date End Date Svetlana Hickman MD [address] [place] [address] Dr [address] [facility] [place] [address] PCP - General Internal Medicine 06/20/24
--- OUTSIDE RECORDS SUMMARY | 2025-01-23 09:39 | XMS_ITS | Clinical Summary ---
Author Organization [facility] Address [address] [place] [phone] Phone Care Team Providers Care Manager Of Patient Name Role Phone Morgan Arvizu MD Primary [...] age to complete this topic Care Teams Manager Of Patient Relationship Specialty Start Date End Date Morgan Arvizu MD PCP - General 10/31/16
--- OUTSIDE RECORDS SUMMARY | 2025-01-23 09:39 | XMS_ITS | Encounter Summary ---
Author Organization [facility] Address [address] [place] [address] Phone Care Team Providers Care Commercial Construction Estimator Name Role Phone Morgan Arvizu MD Primary Care Provider Unavailabl e Encounter Details Date Type Department Care Team (Late st Contact Info) Description 07/10/2009 Documentation EM Family Medicine [address] [place] [address] Family Medicine, Physician [address] [place], [place] [phone] Social History Tobacco Use Types Packs/Day Years [...] on filedocumented in this encounter Care Teams Commercial Construction Estimator Relationship Specialty Start Date End Date Morgan Arvizu MD PCP - General 10/31/16 documented as of this encounter
--- OUTSIDE RECORDS SUMMARY | 2025-01-23 09:39 | XMS_ITS | Encounter Summary ---
Author Organization [facility] Address [address] [place] [phone] Phone Care Team Providers Care Icicle Machine Operator Name Role Phone Morgan Arvizu MD Primary Care Provider Unavailabl e Encounter Details Date Type Department Care Team (Late st Contact Info) Description 07/10/2009 Documentation EM Family Medicine [address] [place] [address] Family Medicine, Physician [address] [place], [place] [address] Social History Tobacco Use Types Packs/Day Years [...] on filedocumented in this encounter Care Teams Icicle Machine Operator Relationship Specialty Start Date End Date Morgan Arvizu MD PCP - General 10/31/16 documented as of this encounter
== END 2025-01-23 08:58 | disposition home or self-care (01) ==
LOC: HO.NEURO 08:57
PROVIDERS: PCP Internal Medicine; Visit Provider Internal Medicine
DX: R41.3 Other amnesia (principal)
CPT/HCPCS: 95700; 95705; 95708

== ENCOUNTER → 2025-01-23 09:01 | Outpatient (BNV) | payer OTHER, SELFPAY | PROVIDERS: PCP Internal Medicine; Visit Provider Psychiatry & Neurology Neurology | DX: R41.3 Other amnesia (principal) | CPT/HCPCS: 95719 ==

== ENCOUNTER 2025-02-03 11:21 | Outpatient (AMB) | payer OTHER, SELFPAY ==
--- NOTE | 2025-02-03 11:23 | MHC.PC.OV ---
Vital Signs 02/03/25 11:24 Height 5 ft 8 in Weight 290 lb BMI 44.1 BP 118/62 Blood Pressure Location Lt brachial Position Sitting Pulse 82 Pulse Source Pulse Oximeter Pulse Oximetry (%) 98 Oxygen Delivery Method Room Air Intake Visit Reasons: annual exam Allergies morphine (Morphine) Allergy (Unknown, Verified 02/03/25 11:25) PALPITATION, tachycardia, tachycardia phentermine Adverse Reaction (Intermediate, Unverified 02/03/25 11:44) Palpitations Medication List - Last Reconciled 02/03/25 by Svetlana Hickman MD albuterol sulfate 90 mcg/actuation 2 puffs inhalation Q4-6H PRN budesonide-formoterol 80-4.5 mcg/actuation (Symbicort) 2 puffs inhalation BID ibuprofen 600 mg PO TID PRN loratadine 10 mg PO DAILY nystatin 1 appl topical BID omeprazole 20 mg PO DAILY phentermine 15 mg PO DAILY Tobacco use date assessed: 11/01/24 Dental Screening Dental Screen Date: 07/26/24 [facility] Medical History (Updated 01/17/25 @ 12:35 by Naldo Acuña MD) Hand pain Numbness in both hands Decreased hearing of left ear Fatty liver Hypertriglyceridemia GERD (gastroesophageal reflux disease) Obstructive sleep apnea History of gastrectomy Asthma Surgical History (Updated 01/02/25 @ 12:58 by Svetlana Hickman MD) History of gastric bypass History of tonsillectomy History of sleeve gastrectomy Hx laparoscopic cholecystectomy Family History Father Hypertension High cholesterol Mother Rheumatoid arthritis Maternal Grandmother Breast cancer Paternal Grandmother Breast cancer Pancreatic cancer Myocardial infarct Paternal Grandfather Colon cancer Myocardial infarct Son Mental health disorder Social History (Updated 02/03/25 @ 11:47 by Svetlana Hickman MD) Housing: House Alcohol intake: current Comment: once a year bottle, 3 x a year holiday max 2 Patient Tobacco Use Status: Never used Tobacco Tobacco use type: Cigarette e-Cigarette/Vaping Use: Never Used Second Hand Smoke Exposure: No service: No Current occupational status: employed 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, 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 Cognitive needs: No Hearing needs: No Vision needs: Yes (glasses) Questionnaire Thrive Questionnaire Date Thrive assessed: 05/06/25 I am a: Patient What is your living situation today?: I have a steady place to live Within the past 12 months, did the food you bought not last and you didn't have the money to get more?: Never true Within the past 12 months, did you worry whether your food would run out before you got money to buy more?: Never true Do you have trouble paying for medicines?: No Do you have trouble getting transportation to medical appointments?: Yes Do you have trouble paying your heating and electricity bill?: No Do you have trouble taking care of your child, family member or friend?: No Do you have trouble with day-to-day activities such as bathing, preparing meals, shopping, managing finances, etc.?: No Are you currently unemployed and looking for a job?: No Are you interested in more education?: No Please select the resources that you would like help with: None Currently or been in a relationship where the following occur: No concerns reported THRIVE Score: 1 JERROD-7 AMB Questionnaire JERROD-7 Date JERROD - 7 assessed: 07/26/24 Source: Developed by Drs. Louie Giles, Ruthann Hollingsworth, Freddie Jasso and colleagues, with an educational reinier from [employer]. Review of Systems Const Denies poor appetite and Denies weakness Eyes Denies no additional complaints ENT Reports Normal hearing present, Denies dizziness, Denies nasal congestion, Denies tinnitus and Denies sore throat Card Denies chest pain, Denies syncope, Denies rapid heart rate and Denies dyspnea Resp Denies cough and Denies dyspnea GI Denies change in stool character, Reports constipation, Denies diarrhea, Denies nausea and Denies vomiting Denies dysuria and Denies urinary frequency Neuro Reports Normal hearing present, Denies confusion, Denies dizziness, Denies syncope and Denies weakness Psych Denies confusion Physical exam (Primary Care) Vital Signs: Last Vital Signs Pulse 82 02/03/25 11:24 BP 118/62 02/03/25 11:24 Pulse Ox 98 02/03/25 11:24 Oxygen Delivery Method Room Air 02/03/25 11:24 BMI result Body Mass Index 44.1 Tobacco/Smoking Status: Tobacco use Status Tobacco use date assessed 11/01/24 02/03/25 11:32 Patient Tobacco Use Status Never used Tobacco 02/03/25 11:47 Tobacco use type Cigarette 02/03/25 11:47 e-Cigarette/Vaping Use Never Used 02/03/25 11:47 Thrive Assessment: Date of Thrive Assessment Date Thrive assessed 07/26/24 02/03/25 11:32 Currently or been in a relationship where the following occur: No concerns reported Const General: alert; No acute distress or confusion Orientation/consciousness: No confusion HENMT Head: Yes normocephalic Ears: external ears normal and TM's normal bilaterally Face and sinus: Yes normal facial exam Mouth: moist mucous membranes Throat: Yes tonsils normal Eyes Conjunctivae: conjunctivae normal Pupils: Equal, round and reactive pupils present and Pupil accommodation reflex normal Direct Ophthalmoscopy: normal light reflex Neck Neck: No lymphadenopathy Thyroid: Thyroid normal Chest Chest palpation & inspection: normal inspection of the chest Resp Effort & Inspection: normal respiratory effort and no audible wheezes Auscultation: clear to auscultation bilaterally Cardio Rate: regular rate Rhythm: regular rhythm Peripheral pulses: radial pulses present and dorsalis pedis present GI Other: Visual rectal area normal Inspection: Yes normal to inspection Palpation (GI): no masses Auscultation: normal bowel sounds and normoactive bowel sounds Rectal Exam - Male: Yes deferred Male General Exam: Yes normal external exam Skin General skin exam: no rashes or lesions noted Rashes: no rashes Neuro General: deep tendon reflexes 2+ bilaterally and No confusion Cranial nerves: Yes Equal, round and reactive pupils present, Yes Midline tongue present, Yes Normal hearing present and Yes Ability to bilaterally elevate shoulders present Cognition (Neuro): normal cognition Gait exam (Neuro): Normal gait present Motor exam (neuro): 5/5 motor strength present throughout Deep tendon reflexes (DTR's): Right brachioradialis reflex intensity grade: 2+, Left brachioradialis reflex intensity grade: 2+, Right patellar reflex intensity grade: 2+ and Left patellar reflex intensity grade: 2+ Extrem General: Yes normal to inspection and No edema Office Procedures Flu Questionnaire Does the patient have a severe egg allergy?: No Does the patient have severe life threatening allergies?: No Does the patient have a fever or illness today?: No Has the patient ever had Guillain-Laf[place] Syndrome?: No Has the patient ever had any past reaction to a flu shot?: No Immunizations Fluarix [id number] (PF) 45 mcg (15 mcg x 3)/0.5 mL IM syringe Performing Provider: Svetlana Hickman MD Performing Location: [facility] Administered by: Callie Pagan CMA on 02/03/25 12:07 Dose Route Admin Location Dispensed Lot Number Expiration Date NDC [employer] 0.5 mL IM Left Deltoid 0.5 mL [id number] 09/19/25 27685-229-25 [employer] VIS Given Date VIS Provided VIS Publication Date 02/03/25 Single Vaccine 24 Eligibility Eligibility Date Funding Source Not [facility] Eligible 02/03/25 Private Coding Level of Care Code Est Pt Level 4 (25430) Complex EM visit Add On G2211 Diagnoses History of sleeve gastrectomy Z90.3 Gastroesophageal reflux disease without esophagitis K21.9 Esophagitis presence: without esophagitis 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 Tenorio Code(s): Z90.3 - Acquired absence of stomach [part of] Category: Surgical Plan: Continue to follow-up with bariatric. medication for weight loss sent but advise to hold off from using until work up for cardiac and neurological done (2) GERD (gastroesophageal reflux disease): Code(s): K21.9 - Gastro-esophageal reflux disease without esophagitis Category: Medical Qualifiers: Esophagitis presence: without esophagitis Qualified Code(s): K21.9 - Gastro-esophageal reflux disease without esophagitis Plan: Avoid the foods that causes that usually spicy foods, tomato products, juices, coffee, soda and foods that your sensitive to. After eating do not lie down, allow 3-4 hours before in lie down. And keep the head of bed above 30 degrees to avoid the acid from going up. 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 Between October 23 going back to May 06. Some of his dizziness is probably due to damage to his inner ear balance mechanisms. If it persists, he may need some meclizine Code(s): R41.3 - Other amnesia Category: Medical Plan: Patient is seeing Neurology and MRI requested, EEG revealed negative results (5) Generalized anxiety disorder: Comment: Declined any referral for counseling December 2020 Code(s): F41.1 - Generalized anxiety disorder Category: Medical Plan: Continue with present medication (6) Annual physical exam: Code(s): Z00.00 - Encounter for general adult medical examination without abnormal findings Category: Medical Plan History of Present Illness The patient is a 34-year-old morbidly obese male presenting for a physical examination and management of chronic conditions. His past medical history is significant for obstructive sleep apnea, asthma, generalized anxiety disorder, and hypercholesterolemia. He underwent gastric bypass surgery in August 2024 and continues to follow up with bariatrics, with reported weight loss. The patient has a history of syncope, retrograde amnesia, and five episodes of dizziness. His neurologic workup includes a prior EEG that was within normal limits, despite showing polyspike wave discharges, and he is scheduled for an MRI and a 48-hour Holter monitor. He also reports occasional symptoms suggestive of hypoglycemia. In terms of musculoskeletal issues, he is status post left cubital tunnel release and was diagnosed with left elbow osteoarthritis via X-ray, for which he takes ibuprofen as needed for significant pain. He is on omeprazole for reflux, Symbicort daily and albuterol every two weeks for asthma, and loratadine for allergies. He recently started phentermine for weight management but developed severe palpitations and numbness, which lasted for about a minute. Recent blood work from approximately two months ago revealed low iron and low vitamin D. His family history is positive for heart problems, hypertension, and cancers, including pancreatic and colon cancer in his mother. He denies tobacco or recreational drug use and has not consumed alcohol in over a year. Health Maintenance The patient received an influenza vaccine during the visit. A lab requisition was provided for fasting blood work, which he is to complete in three months' time. He was advised to schedule a routine eye exam. Social History - Substance Use: The patient reports he has not consumed alcohol in over a year; prior use was occasional, consisting of a maximum of two drinks on holidays. - Tobacco Use: Denies ever smoking cigarettes. - Illicit Drug Use: Denies any use of recreational drugs. - Nutritional Intake: Following gastric bypass surgery, the patient must wait 30 minutes between drinking and eating to prevent vomiting. 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 Review of Systems - Constitutional: Reports difficulty falling and staying asleep. - Constitutional: Denies fevers, nausea, and vomiting. - HEENT: Reports occasional coughing while eating and a sensation of food being stuck, but denies difficulty swallowing. - HEENT: Reports his hearing is good. - Cardiovascular: Reports recent, strong palpitations associated with a sensation of numbness that lasted for about a minute. - Cardiovascular: Denies chest pain or heaviness. - Respiratory: Denies waking up short of breath. - Gastrointestinal: Reports no problems with bowel movements and denies constipation. - Genitourinary: Reports nocturia, waking up about twice per night to urinate. - Genitourinary: Denies post-void residual sensation. - Neurological: Reports episodes of feeling as though his blood sugar is low, with associated shaking. - Musculoskeletal: Reports a lot of pain in his elbow and hand. Physical Exam General: Cooperative, healthy appearing, comfortable, no acute distress and well developed Orientation: Patient oriented x3 Limitations: No limitations Head: Normal to inspection Ears: Hearing grossly normal bilaterally Nose: Normal external nose present Face and sinus: Normal facial exam Eyes: Appearance normal, both eyes and all related structures Neck: Normal visual inspection and Yes full ROM Respiratory: Normal respiratory effort and able to speak in complete sentences. Clear to auscultation bilaterally Cardiovascular: Regular rate and rhythm. Normal S1 and S2 GI: Normal to inspection. Soft to palpation and nontender Skin: No rashes or lesions noted Neuro: Patient oriented x3 Extremities: Normal to inspection Results - Labs: Blood work from approximately 1.5 to 2 months ago showed low iron and low vitamin D. - EEG: Within normal limits. - X-ray Left Elbow: Findings were consistent with osteoarthritis. Plan Patient was informed and verbally consented to the use of an ambient scribe for clinic note documentation during this visit. 1. Syncope And Dizziness The patient's syncope and dizziness are being worked up. He will continue to follow up with neurology. A brain MRI is scheduled for the of this month, and a 48-hour Holter monitor is also planned to evaluate for a cardiac etiology. The patient was counseled on the importance of documenting any events that occur during the Holter monitoring. If the Holter monitor is unrevealing, a longer-term event monitor may be considered. 2. Morbid Obesity The patient will discontinue phentermine immediately due to experiencing severe palpitations. A prescription for an injectable weight loss medication has been sent; however, the patient is instructed not to start it until the workup for his syncopal episodes is completed to avoid complicating the diagnosis. He was counseled that this new medication can cause hypoglycemia and was advised to eat small, frequent meals. He will continue to follow up with his bariatrics team. 3. Left Elbow Osteoarthritis Pain from arthritis will be managed with alternating Tylenol and ibuprofen. The patient was counseled to always take ibuprofen with food. Topical Voltaren gel was suggested as a safer alternative. Caution was advised regarding NSAID use due to his history of gastric bypass, and he was instructed to confirm the safety of using ibuprofen with his bariatric surgeon. He will continue follow-up with orthopedics. 4. Asthma The patient's asthma is currently stable. He will continue his current medications, including Symbicort and albuterol as needed, and was reminded to rinse his mouth after using Symbicort. 5. Insomnia The patient reports difficulty with sleep initiation and maintenance. The use of aumz-jpp-eoosffi allergy medications, such as those containing diphenhydramine, was discussed as a temporary, safer option for sleep. Discussion Notes I advised the patient to stop taking phentermine immediately due to the severe palpitations he experienced. I explained that while I sent in a prescription for a new injectable weight loss medication, he should not start it until the workup for his syncope is complete. I elaborated that this is to avoid complicating the diagnostic process, as the new medication can lower blood sugar and potentially cause similar symptoms. We discussed management for his left elbow arthritis, and I explained that it is a degenerative condition. I presented options including alternating Tylenol with ibuprofen and using topical Voltaren gel. I specifically cautioned him about the risks of taking oral NSAIDs like ibuprofen after gastric bypass surgery due to the increased risk of stomach ulcers and advised him to confirm with his surgeon that it is safe. I reviewed the plan for his syncope workup, which includes a pending MRI and a 48-hour Holter monitor, and stressed the importance of keeping a detailed symptom log during the Holter test. We discussed the benefits of vaccination, and he consented to receive his flu shot. I provided him with a lab slip for follow-up blood work to be done in three months. Patient Instructions - Stop taking phentermine immediately because of the heart palpitations it caused you. - Do not start the new injectable weight loss medication until all the testing for your fainting episodes is finished. - For your elbow and hand pain, you can alternate between taking Tylenol and ibuprofen. - Always take ibuprofen with food to protect your stomach. - Ask your bariatric (stomach) surgeon if it is safe for you to take ibuprofen. - Continue with your follow-up appointments with neurology for your fainting episodes, including the upcoming MRI and 48-hour heart monitor. - While wearing the heart monitor, make sure to write down any symptoms you feel and the time they happen in the log book. - You received your flu shot today. - Take the lab slip you were given to get fasting blood work done in about 3 months. - Schedule an eye exam, as it has been about two years since your last one. - For trouble sleeping, you can try an hujp-ajl-ldsrbyf allergy medication like Benadryl. - Continue taking your other medications as prescribed for asthma and reflux. Orders: Orders Influenza [id number] Immunization Today Z23 - Encounter for immunization Medications: New tirzepatide (weight loss) (Zepbound) for 4 weeks 2.5 mg (0.5 mL) subcut QWEEK 2 mL 3RF E66.01 - Morbid (severe) obesity due to excess calories ibuprofen 600 mg PO TID PRN 30 tabs 0RF pain E66.01 - Morbid (severe) obesity due to excess calories
[2025-02-03 11:24] VITALS: BP 118/62; PULSE 82; O2SAT 98; BMI 44.1
--- OUTSIDE RECORDS SUMMARY | 2025-02-03 17:29 | XMS_ITS | Clinical Summary ---
Author Organization [facility] Address [address] [place] [phone] Phone Care Team Providers Care [employer] Name Role Phone Morgan Arvizu MD Primary [...] age to complete this topic Care Teams [employer] Relationship Specialty Start Date End Date Morgan Arvizu MD PCP - General 10/31/16
--- OUTSIDE RECORDS SUMMARY | 2025-02-03 17:29 | XMS_ITS | Encounter Summary ---
Author Organization [facility] Address [address] [place] [phone] Phone Care Team Providers Care Responder Name Role Phone Morgan Arvizu MD Primary Care Provider Unavailabl e Encounter Details Date Type Department Care Team (Late st Contact Info) Description 11/06/2016 Conversion Encounter [facility] - [address] [id number] Social History Tobacco Use Types Packs/Day Years [...] on filedocumented in this encounter Care Teams Responder Relationship Specialty Start Date End Date Morgan Arvizu MD PCP - General 10/31/16 documented as of this encounter
--- OUTSIDE RECORDS SUMMARY | 2025-02-03 17:30 | XMS_ITS | Encounter Summary ---
Author Organization [facility] Address [address] [place] [phone] Phone Care Team Providers Care Director [employer] Name Role Phone Morgan Arvizu MD Primary Care Provider Unavailabl e Encounter Details Date Type Department Care Team (Late st Contact Info) Description 07/10/2009 Documentation EM Family Medicine [address] [place] [address] Family Medicine, Physician [address] [place], [place] [id number] Social History Tobacco Use Types Packs/Day Years [...] on filedocumented in this encounter Care Teams Director [employer] Relationship Specialty Start Date End Date Morgan Arvizu MD PCP - General 10/31/16 documented as of this encounter
--- OUTSIDE RECORDS SUMMARY | 2025-02-03 17:30 | XMS_ITS | Encounter Summary ---
Author Organization [facility] Address [address] [place] [phone] Phone Care Team Providers Care Grey [employer] Name Role Phone Morgan Arvizu MD Primary Care Provider Unavailabl e Encounter Details Date Type Department Care Team (Late st Contact Info) Description 07/10/2009 Documentation EM Family Medicine [address] [place] [address] Family Medicine, Physician [address] [place], [place] [address] Social History Tobacco Use Types Packs/Day Years [...] on filedocumented in this encounter Care Teams [employer] Relationship Specialty Start Date End Date Morgan Arvizu MD PCP - General 10/31/16 documented as of this encounter
--- OUTSIDE RECORDS SUMMARY | 2025-02-03 17:31 | XMS_ITS | Clinical Summary ---
Author Organization 175 [facility] Address [address] [place] [address] Phone Care Team Providers Care Machine Chain Maker Name Role Phone Svetlana Hickman MD Primary Care Provider [phone] Allergies Active Allergy Reactions Criticality Noted Date [...] ions:Obesity, Class III, BMI 40-49.9 (morbid obesity) ([facility] V28) Take 1 capsule (15 mg total) [...] split. 30 each 5 01/06/20 25 Discontinued Active Problems Problem Noted Date Diagnosed Date S/P bariatric surgery 09/29/2024 Morbid obesity ([facility] V24, [facility] V28) 2024 Encounters Date Type Department Care Team Description 01/13/2025 1:30 PM EDT Telemedicine Bariatric Surgery [address] [phone] Lisa Mckenna [address] Bariatric surgery status (Primary Dx) 01/11/2025 Telephone Bariatric Surgery [address] [phone] Jeannie Arthur PA 12/26/2024 Telephone Bariatric Surgery [address] [phone] Panfilo Tenorio MD 12/16/2024 10:00 AM EDT Telemedicine Bariatric Surgery [address] [phone] Bariatric surgery status (Primary Dx) 11/08/2024 10:15 AM EDT Office Visit Bariatric Surgery [facility] [address] [address] Jeannie Arthur PA Obesity, Class III, BMI 40-49.9 (morbid obesity) (Primary Dx); Bariatric surgery status from Last 3 Months Surgical History Surgery Date Site/Laterality Comments OTHER SURGICAL HISTORY PROCEDURE: ---- OTHER ----; COMMENT: gastric sleeve TONSILLECTOMY ADENOIDECTOMY, BILATERAL MYRINGOTOMY AND TUBES PROCEDURE: [place] TONSILLECTOMY & ADENOIDECTOMY <AGE 11 CHOLECYSTECTOMY PROCEDURE: [place] LAPAROSCOPY SURG CHOLECYSTECTOMY BARIATRIC SURGERY CARPAL TUNNEL [...] 1:45 PM EST Office Visit Bariatric Surgery [facility] 175 [facility] [address] [place] [address] Jeannie Arthur PA [address] [place] [address] 03/24/2025 9:30 AM EST Telemedicine Bariatric Surgery - [place] [address] [phone] Lisa Mckenna, RD [address] [phone] Health Maintenance Due Date Last [...] LAB CHEMISTRY METHOD 11/08/2024 3:02 PM EDT [facility] Bilirubin, Direct 0.1 0.0 - 0.3 mg/dL LAB CHEMISTRY METHOD 11/08/2024 3:02 PM EDT [facility] Bilirubin, Indirect 0.3 0.0 - 1.1 mg/dL LAB CHEMISTRY METHOD 11/08/2024 3:02 PM EDT [facility] Blood Venous blood specimen / Unknown Venipuncture / Unknown 11/08/2024 10:32 AM EDT 11/08/2024 10:32 AM EDT us Panfilo Tenorio MD LAB BLOOD ORDERABLES Final R esult [facility] [address] [place] [address], [place] [phone] * (ABNORMAL) Lipid panel with reflex to direct LDL (11/08/2024 10:32 AM EDT) Cholesterol 111 0 - 200 mg/dL LAB CHEMISTRY METHOD 11/08/2024 2:37 PM EDT [facility] Triglycerides 132 0 - 150 mg/dL LAB CHEMISTRY METHOD 11/08/2024 2:37 PM EDT [facility] HDL 33(L) >=40 mg/dL LAB CHEMISTRY METHOD 11/08/2024 2:37 PM EDT [facility] LDL Calculated 52 0 - 100 mg/dL LAB CHEMISTRY METHOD 11/08/2024 2:37 PM EDT [facility] Comment:Estimated LDL Calcul ated using equation: Total cholesterol - HDL cholesterol - (Triglycerides/5) VLDL Cholesterol Ronnie 26.4 mg/dL LAB CHEMISTRY METHOD 11/08/2024 2:37 PM EDT [facility] Non HDL Chol. (LDL+VLDL) 78 <145 mg/dL LAB CHEMISTRY METHOD 11/08/2024 2:37 PM EDT [facility] Chol/HDL Ratio 3.4 0.0 - 4.4 LAB CHEMISTRY METHOD 11/08/2024 2:37 PM EDT [facility] Blood Venous blood specimen / Unknown Venipuncture / Unknown 11/08/2024 10:32 AM EDT 11/08/2024 10:32 AM EDT Panfilo Tenorio MD LAB BLOOD ORDERABLES Final R esult Performing Organization Address City/[facility]/ZIP Co de Phone Number [facility] [address] [place] [address], [place] [phone] * (ABNORMAL) Iron and TIBC (11/08/2024 10:32 AM EDT) Iron 48(L) 50 - 160 mcg/dL LAB CHEMISTRY METHOD 11/08/2024 3:02 PM EDT [facility] TIBC 364 250 - 450 mcg/dL LAB CHEMISTRY METHOD 11/08/2024 3:02 PM EDT [facility] Iron Saturation 13(L) 20 - 50 % LAB CHEMISTRY METHOD 11/08/2024 3:02 PM EDT [facility] Blood Venous blood specimen / Unknown Venipuncture / Unknown 11/08/2024 10:32 AM EDT 11/08/2024 10:32 AM EDT Jeannie DREW LAB BLOOD ORDERABLES Final R esult Performing Organization Address [facility]/ZIP Co de Phone Number [facility] [address] [place] [address], [place] [phone] * Copper, serum (11/08/2024 10:32 AM EDT) Copper 1229 665 - 1480 ug/L 11/14/2024 7:44 AM EDT [facility] Comment: Elevated results may be due to sample collected in a non-certified trace element-free tube. This test was developed and the performance characteristics determined by [facility]. It has not been cleared or approved by the FDA. The laboratory is regulated under CLIA as qualified to perform high-complexity testing. This test is used for patient testing purposes. It should not be regarded as investigational or for research. Test performed at [facility], [address], [place] [address] Jessica Smith MD, PhD - Renal Technician Blood Venous blood specimen / Unknown Venipuncture / Unknown 11/08/2024 10:32 AM EDT 11/08/2024 10:32 AM EDT Jeannie DREW LAB BLOOD ORDERABLES Final R esult Performing Organization Address [facility] Co de Phone Number [facility] [address] [place] [address] * Zinc (11/08/2024 10:32 AM EDT) Zinc 67 60 - 130 ug/dL 11/11/2024 9:10 AM EDT [facility] Comment: Elevated results may be due to sample collected in a non-certified trace element-free tube. This test was developed and the performance characteristics determined by [facility]. It has not been cleared or approved by the FDA. The laboratory is regulated under CLIA as qualified to perform high-complexity testing. This test is used for patient testing purposes. It should not be regarded as investigational or for research. Test performed at [facility], [address] [facility] [place] [address] Jessica Smith MD, PhD - Renal Technician Blood Venous blood specimen / Unknown Venipuncture / Unknown 11/08/2024 10:32 AM EDT 11/08/2024 10:32 AM EDT Jeannie DREW LAB BLOOD ORDERABLES Final R esult Performing Organization Address [facility] Co de Phone Number [facility] [address] [place] [address] * Vitamin A (11/08/2024 10:32 AM EDT) Vitamin A 38 38 - 106 ug/dL 11/14/2024 6:10 AM EDT [facility] Comment: This test was developed and the performance characteristics determined by [facility]. It has not been cleared or approved by the FDA. The laboratory is regulated under CLIA as qualified to perform high-complexity testing. This test is used for patient testing purposes. It should not be regarded as investigational or for research. Test performed at [facility], [address] , [place] [address] Jessica Smith MD, PhD - Renal Technician Blood Venous blood specimen / Unknown Venipuncture / Unknown 11/08/2024 10:32 AM EDT 11/08/2024 10:32 AM EDT Jeannie DREW LAB BLOOD ORDERABLES Final R esult Performing Organization Address [facility]/ZIP Co de Phone Number [facility] [address] [place], [place] [phone] * Selenium serum (11/08/2024 10:32 AM EDT) Pathologist [facility] [place] Selenium 133 63 - 160 mcg/L 11/12/2024 11:13 PM EDT [facility] Comment: This test was developed and its analytical performance characteristics have been determined by [facility] [place], [place]. It has not been cleared or approved by the U.S. Food and Drug Administration. This assay has been validated pursuant to the CLIA regulations and is used for clinical purposes. Test Performed by [facility], [facility], [address] [place] [address] Jan Buck M.D., Ph.D., Director of Laboratories , CLIA [id number] Blood Venous blood specimen / Unknown Venipuncture / Unknown 11/08/2024 10:32 AM EDT 11/08/2024 10:32 AM EDT Jeannie DREW LAB BLOOD ORDERABLES Final R esult Performing Organization Address [facility]/ZIP Co de Phone Number [facility] [address] [place] [address] * (ABNORMAL) Vitamin D 25 hydroxy (11/08/2024 10:32 AM EDT) Pathologist [facility] [place] Vit D, 25-Hydroxy 27.6(L) 30.0 - 80.0 ng/mL LAB CHEMISTRY METHOD 11/08/2024 3:40 PM EDT [facility] Blood Venous blood specimen / Unknown Venipuncture / Unknown 11/08/2024 10:32 AM EDT 11/08/2024 10:32 AM EDT Jeannie DREW LAB BLOOD ORDERABLES Final R esult Performing Organization Address [facility]/ZIP Co de Phone Number [facility] [address] [place] [address], [place] [phone] * Thyroid stimulating hormone (11/08/2024 10:32 AM EDT) [facility] TSH 1.26 0.40 - 4.00 mcIU/mL LAB CHEMISTRY METHOD 11/08/2024 3:40 PM EDT [facility] Blood Venous blood specimen / Unknown Venipuncture / Unknown 11/08/2024 10:32 AM EDT 11/08/2024 10:32 AM EDT Panfilo Tenorio MD LAB BLOOD ORDERABLES Final R esult Performing Organization Address [facility] Co de Phone Number [facility] [address] [place] [address], [place] [phone] * Vitamin B1 (11/08/2024 10:32 AM EDT) [facility] Vitamin B1 Whole Blood 58 38 - 122 ug/L 11/14/2024 6:29 AM EDT [facility] Comment: This test was developed and the performance characteristics determined by [facility]. It has not been cleared or approved by the FDA. The laboratory is regulated under CLIA as qualified to perform high-complexity testing. This test is used for patient testing purposes. It should not be regarded as investigational or for research. Test performed at [facility], [address] [place] [address] Jessica Smith MD, PhD - Renal Technician Blood Venous blood specimen / Unknown Venipuncture / Unknown 11/08/2024 10:32 AM EDT 11/08/2024 10:32 AM EDT Jeannie DREW LAB BLOOD ORDERABLES Final R esult Performing Organization Address City/[facility]/ZIP Co de Phone Number [facility] [address] [place] [address] * Vitamin B6 (11/08/2024 10:32 AM EDT) Vitamin B6 (Pyridoxine) Level 29 5 - 50 ug/L 11/14/2024 9:19 AM EDT [facility] Comment: This test was developed and the performance characteristics determined by [facility]. It has not been cleared or approved by the FDA. The laboratory is regulated under CLIA as qualified to perform high-complexity testing. This test is used for patient testing purposes. It should not be regarded as investigational or for research. Test performed at [facility], [address] , [place] [address] Jessica Smith MD, PhD - Renal Technician Blood Venous blood specimen / Unknown Venipuncture / Unknown 11/08/2024 10:32 AM EDT 11/08/2024 10:32 AM EDT Jeannie DREW LAB BLOOD ORDERABLES Final R esult Performing Organization Address City/[facility]/ZIP Co de Phone Number [facility] [address] [place] [address] * Hemoglobin A1c (11/08/2024 10:32 AM EDT) Hemoglobin A1C 5.3 <6.5 % LAB CHEMISTRY METHOD 11/08/2024 9:22 PM EDT [facility] Mean Bld Glu Estim. 105 mg/dL LAB CHEMISTRY METHOD 11/08/2024 9:22 PM EDT [facility] Blood Venous blood specimen / Unknown Venipuncture / Unknown 11/08/2024 10:32 AM EDT 11/08/2024 10:32 AM EDT Panfilo Tenorio MD LAB BLOOD ORDERABLES Final R esult Performing Organization Address [facility]/ZIP Co de Phone Number [facility] [address] [place] [address], [place] [phone] * Folate (11/08/2024 10:32 AM EDT) Folate 11.7 2.8 - 17.0 ng/ml LAB CHEMISTRY METHOD 11/08/2024 3:02 PM EDT [facility] Blood Venous blood specimen / Unknown Venipuncture / Unknown 11/08/2024 10:32 AM EDT 11/08/2024 10:32 AM EDT Jeannie DREW LAB BLOOD ORDERABLES Final R esult Performing Organization Address [facility]/ZIP Co de Phone Number [facility] [address] [place] [address], [place] [phone] * (ABNORMAL) Vitamin B12 (11/08/2024 10:32 AM EDT) Vitamin B-12 951(H) 250 - 900 pcg/mL LAB CHEMISTRY METHOD 11/08/2024 3:02 PM EDT [facility] Blood Venous blood specimen / Unknown Venipuncture / Unknown 11/08/2024 10:32 AM EDT 11/08/2024 10:32 AM EDT Jeannie DREW LAB BLOOD ORDERABLES Final R esult Performing Organization Address City/[facility]/ZIP Co de Phone Number [facility] [address] [place] [address], [place] [phone] * (ABNORMAL) Comprehensive metabolic panel (11/08/2024 10:32 AM EDT) Sodium 140 133 - 145 mmol/L LAB CHEMISTRY METHOD 11/08/2024 3:02 PM [facility] Potassium 3.8 3.5 - 5.5 mmol/L LAB CHEMISTRY METHOD 11/08/2024 3:02 PM [facility] Chloride 108 96 - 110 mmol/L LAB CHEMISTRY METHOD 11/08/2024 3:02 PM [facility] CO2 28 21 - 32 mmol/L LAB CHEMISTRY METHOD 11/08/2024 3:02 PM [facility] Anion Gap 4 3 - 11 LAB CHEMISTRY METHOD 11/08/2024 3:02 PM [facility] Glucose 81 70 - 100 mg/dL LAB CHEMISTRY METHOD 11/08/2024 3:02 PM [facility] BUN 14 5 - 25 mg/dL LAB CHEMISTRY METHOD 11/08/2024 3:02 PM [facility] Creatinine 0.59(L) 0.70 - 1.30 mg/dL LAB CHEMISTRY METHOD 11/08/2024 3:02 PM [facility] eGFR 130 >=60 mL/min/1. 73m2 LAB CHEMISTRY METHOD 11/08/2024 3:02 PM [facility] Comment:Calculation based on the Chronic Kidney Disease Epidemiology Collaboration (CKD-EPI) equation refit without adjustment for race. BUN/Creatinine Ratio 23.7 LAB CHEMISTRY METHOD 11/08/2024 3:02 PM [facility] Calcium 9.0 8.5 - 10.5 mg/dL LAB CHEMISTRY METHOD 11/08/2024 3:02 PM [facility] AST (SGOT) 14 10 - 42 unit/L LAB CHEMISTRY METHOD 11/08/2024 3:02 PM [facility] ALT (SGPT) 38 10 - 60 unit/L LAB CHEMISTRY METHOD 11/08/2024 3:02 PM EDT [facility] Alkaline Phosphatase 66 42 - 121 unit/L LAB CHEMISTRY METHOD 11/08/2024 3:02 PM EDT [facility] Total Protein 6.7 6.0 - 8.0 g/dL LAB CHEMISTRY METHOD 11/08/2024 3:02 PM EDT [facility] Albumin 3.7 3.2 - 5.0 g/dL LAB CHEMISTRY METHOD 11/08/2024 3:02 PM EDT [facility] Total Bilirubin 0.4 0.0 - 1.4 mg/dL LAB CHEMISTRY METHOD 11/08/2024 3:02 PM EDT [facility] Blood Venous blood specimen / Unknown Venipuncture / Unknown 11/08/2024 10:32 AM EDT 11/08/2024 10:32 AM EDT us Jeannie DREW LAB BLOOD ORDERABLES Final R esult [facility] [address] [place] [address], from Last 3 Months Insurance [facility] [employer] [facility] Advance Directives Documents on File Type Date Recorded 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 Care Teams Machine Chain Maker Relationship Specialty Start Date End Date Po, MD Svetlana [address] [place] [address] [address] [facility] [place] [address] PCP - General Internal Medicine 06/20/24
== END 2025-02-03 12:08 | disposition home or self-care (01) ==
LOC: HO.HMCH 11:21
PROVIDERS: PCP Internal Medicine; Visit Provider Internal Medicine
DX: Z90.3 Acquired absence of stomach [part of] (principal); K21.9 Gastro-esophageal reflux disease without esophagitis; M19.022 Primary osteoarthritis, left elbow; R41.3 Other amnesia; F41.1 Generalized anxiety disorder; Z00.00 Encounter for general adult medical examination without abnormal findings; Z23 Encounter for immunization

== ENCOUNTER → 2025-02-03 11:21 | Outpatient (BNVA) | payer OTHER, SELFPAY | PROVIDERS: PCP Internal Medicine; Visit Provider Internal Medicine | DX: Z00.00 Encounter for general adult medical examination without abnormal findings (principal); K21.9 Gastro-esophageal reflux disease without esophagitis; M19.022 Primary osteoarthritis, left elbow; R41.3 Other amnesia; F41.1 Generalized anxiety disorder; R42 Dizziness and giddiness; E66.01 Morbid (severe) obesity due to excess calories; J45.909 Unspecified asthma, uncomplicated; G47.00 Insomnia, unspecified; Z23 Encounter for immunization; Z90.3 Acquired absence of stomach [part of]; Z68.41 Body mass index [BMI] 40.0-44.9, adult | CPT/HCPCS: 90471; 90656; 99212 ==

== ENCOUNTER → 2025-03-08 19:36 | Outpatient (BNV) | payer OTHER, SELFPAY | PROVIDERS: PCP Internal Medicine; Visit Provider Radiology Diagnostic Radiology | DX: R41.3 Other amnesia (principal) | CPT/HCPCS: 70551 ==

== ENCOUNTER 2025-03-08 19:40 | Outpatient (REF) | payer OTHER, SELFPAY ==
--- NOTE | ~2025-03-08 | MR_ITS ---
EXAMINATION: MR BRAIN WITHOUT CONTRAST CLINICAL INFORMATION: R 41.3. COMPARISON: Correlated to CT dated July 06, 2019. TECHNIQUE: MRI of the brain was obtained using routine sequences without contrast. FINDINGS: No restricted diffusion. No acute intracranial hemorrhage, midline shift, hydrocephalus or herniation. Alves-white matter differentiation is normal. Posterior cranial fossa contents demonstrated no signal abnormality or mass effect. Craniocervical junction is intact with normal position of the cerebellar tonsils. Sellar/suprasellar region is normal. Flow-void signal within the main cerebral vessels is normal. Mucosal thickening, ethmoid cells and right frontal ethmoid recess. MR/MR head/brain wo con IMPRESSION: No acute or structural brain abnormality. Electronically signed by: Davin Horton MD 03/09/2025 06:22 AM GUILLERMO
--- OUTSIDE RECORDS SUMMARY | 2025-03-08 21:12 | XMS_ITS | Clinical Summary ---
Author Organization 175 [facility] Address 175 [place] [address] Phone Care Team Providers Care Simulation Technician Name Role Phone Svetlana Hickman MD Primary Care Provider [phone] Allergies Active Allergy Reactions Criticality Noted Date [...] Amount: 20 mg 12 tablet 08/25/2024 Active ergocalciferol (VITAMIN D-2) 1,250 mcg (50,000 unit) capsuleIndicati ons:Vitamin D deficiency Take 1 capsule (50,000 Units total) by mouth 1 (one) time per week. 12 capsule 12/26/2024 Active ferrous sulfate 325 mg (65 mg iron) EC tabletIndicatio ns:S/P bariatric surgery TAKE ONE TABLET BY MOUTH EVERY DAY DO NOT CRUSH, CHEW, OR SPLIT 30 tablet 01/05/2025 Active phentermine 15 mg capsuleIndicati ons:Obesity, Class III, BMI 40-49.9 (morbid obesity) ([facility] V28) Take 1 capsule (15 mg total) by mouth 1 (one) time each day before breakfast. Max Daily Amount: 15 mg 30 each 01/18/2025 Active Active Problems Problem Noted Date Diagnosed Date S/P bariatric surgery 09/29/2024 Morbid obesity 07/13/2024 Encounters Date Type Department Care Team Description 01/13/2025 1:30 PM EDT Telemedicine Bariatric Surgery [address] [phone] Bariatric surgery status (Primary Dx) 01/11/2025 Telephone Bariatric Surgery [address] [phone] Jeannie Arthur PA 12/26/2024 Telephone Bariatric Surgery [address] [phone] Panfilo Tenorio MD 12/16/2024 10:00 AM EDT Telemedicine Bariatric Surgery [address] [phone] Bariatric surgery status (Primary Dx) from Last 3 Months Surgical History Surgery Date Site/Laterality Comments OTHER SURGICAL HISTORY PROCEDURE: ---- OTHER ----; COMMENT: gastric sleeve TONSILLECTOMY ADENOIDECTOMY, BILATERAL MYRINGOTOMY AND TUBES PROCEDURE: [place] TONSILLECTOMY & ADENOIDECTOMY <AGE 11 CHOLECYSTECTOMY PROCEDURE: [place] LAPAROSCOPY SURG CHOLECYSTECTOMY BARIATRIC SURGERY CARPAL TUNNEL [...] Care Team (Late st Contact Info) Description 03/24/2025 9:30 AM EST Telemedicine Bariatric Surgery - [place] 175 [facility] [address] [place] [phone] Lisa Mckenna, RD 175 [facility] [address] [place] [address] Health Maintenance Due Date Last Done [...] Procedure Name Priority Date/Time Associated Diagnosis Comments LIPID PANEL WITH REFLEX TO DIRECT LDL Routine 11/08/2024 10:32 AM EDT Class 3 severe obesity due to excess calories with body mass index (BMI) of 45.0 to 49.9 in adult, unspecified whether serious comorbidity present (CMS/HCC V24, [facility] V28) from Last 3 Months or Most Recently Relevant to Health Maintenance Results * (ABNORMAL) Lipid panel with reflex to direct LDL (11/08/2024 10:32 AM EDT) Cholesterol 111 0 - 200 mg/dL LAB CHEMISTRY METHOD 11/08/2024 2:37 PM EDT [facility] Triglycerides 132 0 - 150 mg/dL LAB CHEMISTRY METHOD 11/08/2024 2:37 PM EDT [facility] HDL 33(L) >=40 mg/dL LAB CHEMISTRY METHOD 11/08/2024 2:37 PM EDT [facility] LDL Calculated 52 0 - 100 mg/dL LAB CHEMISTRY METHOD 11/08/2024 2:37 PM EDT [facility] Comment:Estimated LDL Calcul ated using equation: Total cholesterol - HDL cholesterol - (Triglycerides/5) VLDL Cholesterol Ronnie 26.4 mg/dL LAB CHEMISTRY METHOD 11/08/2024 2:37 PM EDT [facility] Non HDL Chol. 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 Care Teams Simulation Technician Relationship Specialty Start Date End Date Svetlana Hickman MD [address] [place] [address] [address] [facility] [place] [address] PCP - General Internal Medicine 06/20/24
== END 2025-03-08 19:41 ==
LOC: HO.MRI 19:40
PROVIDERS: PCP Internal Medicine; Visit Provider Psychiatry & Neurology Neurology
DX: R41.3 Other amnesia (principal)
CPT/HCPCS: 70551